=== PATIENT | male | born 1960 | race Caucasian/White ===

== ENCOUNTER 2024-05-21 12:07 | Inpatient (IN) | payer MEDICARE, OTHER ==
[2024-05-21] MEDS ORDERED: PNEUMONIA PROTOCOL UTILIZED 1 EACH MISC PO PRN (12:36)
--- NOTE | 2024-05-21 12:39 | ED ---
General Adult HPI - General Chief complaint: Upper Respiratory Infection Stated complaint: cough Time Seen by Provider: 05/21/24 12:12 Source: patient, EMS, RN notes reviewed Mode of arrival: EMS Limitations: no limitations - History of Present Illness Initial comments: Patient is a 63-year-old male present to the emergency department as a transfer from [place]. Patient was transferred secondary to influenza and new onset A-fib. Patient went to the emergency department with difficulty breathing. Patient does have known history of COPD with similar symptoms. Onset of symptoms was just yesterday. Patient was found to have influenza positive and new onset A-fib with RVR. Patient was given nebulizer, Solu-Medrol and Cardizem. Patient left AMA and returned and then was transferred here to evaluate and treat by cardiology. Patient states symptoms have not improved - Related Data Allergies Allergy/AdvReac Type Severity Reaction Status Date / Time No Known Allergies Allergy Verified 05/21/24 12:19 Review of Systems ROS Statement: Those systems with pertinent positive or pertinent negative responses have been documented in the HPI. ROS Other: All systems not noted in ROS Statement are negative. Constitutional: Denies: fever, chills Eyes: Denies: eye pain ENT: Denies: ear pain Respiratory: Reports: as per HPI, cough, dyspnea Cardiovascular: Denies: chest pain Endocrine: Reports: fatigue Musculoskeletal: Denies: back pain Past Medical History Past Medical History: COPD, Hypertension General Exam Limitations: no limitations General appearance: alert, in no apparent distress Head exam: Present: normocephalic Eye exam: Present: normal appearance Neck exam: Present: normal inspection Respiratory exam: Present: wheezes, rhonchi Cardiovascular Exam: Present: tachycardia, irregular rhythm GI/Abdominal exam: Present: soft. Absent: tenderness Extremities exam: Present: normal inspection. Absent: pedal edema, calf tenderness Neurological exam: Present: alert Psychiatric exam: Present: normal affect, normal mood Skin exam: Present: other (Tobacco stained fingers) Course Vital Signs 05/21/24 12:15 Temperature 97.8 F Pulse Rate 111 H Respiratory 22 Rate Blood Pressure 142/94 O2 Sat by Pulse 98 Oximetry EKG Findings - EKG Results: EKG: interpreted by ERMD (Nonspecific ST-T), normal axis, normal QRS EKG shows: atrial fibrillation (Rate of 101.) Medical Decision Making - Medical Decision Making Was pt. sent in by a medical professional or institution (SORIN Parker, [employer], urgent care, hospital, or jail...) When possible be specific @ -Patient was sent by [facility] Did you speak to anyone other than the patient for history (EMS, parent, family, police, friend...)? What history was obtained from this source @ -I did speak with transferring physician Did you review nursing and triage notes (agree or disagree)? Why? @ -I reviewed and agree with nursing and triage notes Were old charts reviewed (outside hosp., previous admission, EMS record, old EKG, old radiological studies, urgent care reports/EKG's, jail records)? Report findings @ -Chart from [place] was reviewed Differential Diagnosis (chest pain, altered mental status, abdominal pain women, abdominal pain men, vaginal bleeding, weakness, fever, dyspnea, syncope, hea dache, dizziness, GI bleed, back pain, seizure, CVA, palpatations, mental health, musculoskeletal)? @ -Differential Dyspnea: Coronary syndrome, arrhythmia, tamponade, asthma, COPD, pulmonary embolism, pneumonia, pneumothorax, pulmonary effusion, anaphylaxis, diabetic ketoacidosis, flailed chest, pulmonary contusion, diaphragmatic rupture, anemia, neuromuscular, this is not meant to be an all-inclusive list. EKG interpreted by me (3pts min.). @ -As above X-rays interpreted by me (1pt min.). @ -None done CT interpreted by me (1pt min.). @ -None done U/S interpreted by me (1pt. min.). @ -None done What testing was considered but not performed or refused? (CT, X-rays, U/S, labs)? Why? @ -Considered labs and x-rays however these were already done What meds were considered but not given or refused? Why? @ -None Did you discuss the management of the patient with other professionals (professionals i.e. SORIN Parker, [employer], lab, RT, psych nurse, high school social science teacher, undercover cop, teacher, bank compliance officer, case technician)? Give summary @ -Case discussed with Dr. Thomas who will admit covering hospital call Was smoking cessation discussed for >3mins.? @ -No Was critical care preformed (if so, how long)? @ -31 minutes critical care time Were there social determinants of health that impacted care today? How? (Homelessness, low income, unemployed, alcoholism, drug addiction, transportation, low edu. Level, literacy, decrease access to med. care, nursing home, rehab)? @ -No Was there de-escalation of care discussed even if they declined (Discuss DNR or withdrawal of care, Hospice)? DNR status @ -No What co-morbidities impacted this encounter? (DM, HTN, Smoking, COPD, CAD, Cancer, CVA, ARF, Chemo, Hep., AIDS, mental health diagnosis, sleep apnea, morbid obesity)? @ -History of COPD Was patient admitted / discharged? Hospital course, mention meds given and route, prescriptions, significant lab abnormalities, going to OR and other pertinent info. @ -Patient presents with transfer for new onset A-fib as well as COPD and influenza. Patient will be admitted. Admission orders written. Patient updated on results and plan. Consult will be placed with cardiology and pulmonary. Undiagnosed new problem with uncertain prognosis? @ -No Drug Therapy requiring intensive monitoring for toxicity (Heparin, Nitro, Insulin, Cardizem)? @ -Cardizem and heparin drips Were any procedures done? @ -No Diagnosis/symptom? @ -COPD, influenza, A-fib with RVR Acute, or Chronic, or Acute on Chronic? @ -Acute, acute, acute Uncomplicated (without systemic symptoms) or Complicated (systemic symptoms)? @ -Default Side effects of treatment? @ -No Exacerbation, Progression, or Severe Exacerbation? @ -Exacerbation of COPD Poses a threat to life or bodily function? How? (Chest pain, USA, MD, pneumonia, PE, COPD, DKA, ARF, appy, cholecystitis, CVA, Diverticulitis, Homicidal, Suicidal, threat to staff... and all critical care pts) @ -Threat to cardiac and pulmonary function Critical Care Time Critical Care Time: Yes Disposition Clinical Impression: Influenza, COPD (chronic obstructive pulmonary disease), Atrial fibrillation with RVR Disposition: ADMITTED IP TO THIS [facility] Condition: Serious Is patient prescribed a controlled substance at d/c from ED?: No Referrals: Nonstaff,Physician [Primary Care Provider] - 1-2 days Time of Disposition: 12:47
[2024-05-21] MEDS: HEPARIN SOD,PORK IN 0.45% NACL 25,000 UNIT in 0.45% NACL 1 250ML.BAG IV SCH (13:11)
[2024-05-21] MEDS: DILTIAZEM 125 MG in SODIUM CHLORIDE 0.9% 100 ML IV SCH (13:15)
[2024-05-21] MEDS: SODIUM CHLORIDE 0.9% 1,000 ML IV SCH (13:18)
[2024-05-21] MEDS: methylPREDNISolone SOD SUCCI 125 MG/2 ML VIAL IV SCH (13:18)
[2024-05-21] MEDS: AZITHROMYCIN 500 MG in SODIUM CHLORIDE 0.9% 250 ML IVPB STA (14:08)
[2024-05-21] MEDS: OSELTAMIVIR 75 MG CAP PO SCH (17:01)
[2024-05-21] MEDS: IPRATROPIUM-ALBUTEROL 3 ML NEB INHALATION SCH (19:50)
[2024-05-22] MEDS: IPRATROPIUM-ALBUTEROL 3 ML NEB INHALATION PRN (04:00)
[2024-05-22 05:33] LABS: INR 0.9 (<1.2); Prothrombin Time 10.1 sec (10.0-12.5)
[2024-05-22] MEDS: HEPARIN SODIUM 1,000 UN/ML (10ML VL) IV PRN (06:37)
[2024-05-22 06:47] LABS: Basophils % (A) 0 %; Eosinophils % (A) 0 %; HCT 46.2 % (39.0-53.0); Lymphocytes # (A) 0.4 k/uL (1.0-4.8); Lymphocytes % (A) 3 %; MCH 33.1 pg (25.0-35.0); MCHC 32.4 g/dL (31.0-37.0); Macrocytosis Slight; Mean Platelet Volume 7.9; Monocytes # (A) 0.4 k/uL (0-1.0); Monocytes % (A) 3 %; Neutrophils # (A) 10.6 k/uL (1.3-7.7); Neutrophils % (A) 92 %; Platelet Count 302 k/uL (150-450); RBC 4.53 m/uL (4.30-5.90); RDW 13.6 % (11.5-15.5); WBC 11.5 k/uL (3.8-10.6)
[2024-05-22 06:55] LABS: African American GFR (CKD) >90 (>60 ml/min/1.73 sqM); Anion Gap 11 mmol/L; Blood Urea Nitrogen 24 mg/dL (9-20); Calcium 9.5 mg/dL (8.4-10.2); Carbon Dioxide 22 mmol/L (22-30); Chloride 100 mmol/L (98-107); Glucose 183 mg/dL (74-99); Non-African American GFR(CKD) >90 (>60 ml/min/1.73 sqM); Potassium 4.6 mmol/L (3.5-5.1); Sodium 133 mmol/L (137-145)
--- NOTE | 2024-05-22 07:23 | XR ---
EXAMINATION TYPE: XR chest 1V portable DATE OF EXAM: 05/22/2024 5:15 AM COMPARISON: None CLINICAL INDICATION: Male, 63 years old with history of pneumonia; [facility] TECHNIQUE: XR chest 1V portable Frontal view of the chest. FINDINGS: Lungs/Pleura: There is no evidence of pleural effusion, focal consolidation, or pneumothorax. Pulmonary vascularity: Unremarkable. Heart/mediastinum: Cardiomediastinal silhouette is unremarkable. Musculoskeletal: No acute osseous pathology. IMPRESSION: No acute cardiopulmonary disease/process. [facility], , 05/22/2024 7:20 AM
[2024-05-22] MEDS ORDERED: BUDESONIDE 0.5 MG/2 ML NEBU INHALATION SCH (08:00)
[2024-05-22] MEDS: lisinopriL 20 MG TAB PO SCH (08:45)
[2024-05-22] MEDS: SYMBICORT 160-4.5 MCG INHALER INHALATION SCH (08:53)
[2024-05-22] MEDS: TIOTROPIUM 2.5 MCG INHALER INHALATION SCH (09:01)
[2024-05-22] MEDS: FLUTICASONE NASAL 50MCG/SPRAY 16GM BTL EA NOSTRIL SCH (09:47)
[2024-05-22] MEDS: METOPROLOL TARTRATE 50 MG TAB PO SCH (12:33)
[2024-05-22] MEDS: APIXABAN 5 MG TAB PO SCH (12:33)
[2024-05-22] MEDS: AZITHROMYCIN 500 MG TAB PO SCH (12:34)
[2024-05-22 12:44] LABS: Magnesium 2.1 mg/dL (1.6-2.3)
[2024-05-22 12:53] LABS: NT-Pro-B-Type Natriuretic Pept 1000 pg/mL
--- NOTE | 2024-05-22 12:53 | P.CNPUL ---
History of Present Illness Consult date: 05/22/24 Requesting physician: Margaret Prather Reason for consult: dyspnea, cough, COPD, hypoxemia, abnormal CXR/CT Chief complaint: Shortness of breath. History of present illness: Pulmonary consultation dated May 22, 2024. 63-year-old male who presented to the emergency department, on May 21, complaining of shortness of breath, cough, wheezing, chest tightness, and generally not feeling well. The patient apparently was discovered to have new onset atrial fibrillation, and also tested positive for influenza A. The patient came in from [facility]. The patient has never seen a diamond mounter, but does have an appointment with 1, on May 26. We believe is Dr. Weller, but [facility]. He is seen today in the emergency department, room 25. He is on room air. He is receiving IV heparin. The patient is also on Cardizem. He is getting saline at 75 cc an hour. White count 11.5, hemoglobin 15, hematocrit 46.2, and platelet count 302,000. Sodium 133, potassium 4.6, chlorides 100, CO2 22, BUN 24, creatinine 0.88. Glucose 183. Calcium 9.5. Last x-ray shows no changes of any significance. Review of Systems REVIEW OF SYSTEMS: CONSTITUTIONAL: [Negative.] NEUROLOGIC: [ Negative.] HEENT: [ Negative.] CARDIAC: Rapid heart rate. PULMONARY: Shortness of breath, cough, wheezing, chest tightness. GI: [Negative.] : [Negative.] RHEUMATOLOGIC: [ Negative.] IMMUNOLOGIC: [ Negative.] ENDOCRINE: [Negative. ] DERMATOLOGIC: [Negative.] Past Medical History Past Medical History: COPD, Hypertension Medications and Allergies Home Medications Medication Instructions Recorded Confirmed Type Albuterol Nebulized [Ventolin 2.5 mg INHALATION RT-Q6H 05/21/24 05/21/24 History Nebulized] Albuterol Sulfate [Ventolin HFA] 2 puff INHALATION RT-Q4H PRN 05/21/24 05/21/24 History Azithromycin [Zithromax Z Pack] See Taper PO DIRECTED 05/21/24 05/21/24 History Budesonide [Pulmicort] 0.5 mg INHALATION RT-Q12H 05/21/24 05/21/24 History Fluticasone Nasal [place] [Flonase 2 spr EA NOSTRIL DAILY 05/21/24 05/21/24 History Nasal [place]] Fluticasone Propion/Salmeterol 1 puff INHALATION RT-BID 05/21/24 05/21/24 History [Advair 500-50 Diskus] Fluticasone/Umeclidin/Vilanter 1 puff INHALATION RT-DAILY 05/21/24 05/21/24 His tory [Trelegy Ellipta 200-62.5-25] Ibuprofen [Motrin] 800 mg PO TID PRN 05/21/24 05/21/24 History guaiFENesin [Mucinex] 1,200 mg PO BID PRN 05/21/24 05/21/24 History lisinopriL 40 mg PO DAILY 05/21/24 05/21/24 History methylPREDNISolone [Medrol Dose See Taper PO DIRECTED 05/21/24 05/21/24 History Pack] Allergies Allergy/AdvReac Type Severity Reaction Status Date / Time No Known Allergies Allergy Verified 05/21/24 16:39 Physical Exam Osteopathic Statement: *. No significant issues noted on an osteopathic structural exam other than those noted in the History and Physical/Consult. Vitals: Vital Signs Temp Pulse Pulse Resp BP BP Pulse Ox 05/22/24 09:07 108 H 05/22/24 09:00 101 H 18 137/97 96 05/22/24 08:54 100 05/22/24 08:00 98 F 115 H 18 160/100 96 05/22/24 06:51 108 H 133/78 96 05/22/24 04:40 115 H 18 140/114 97 05/22/24 04:10 96 05/22/24 04:00 105 H 05/22/24 02:26 130 H 125/104 95 05/22/24 01:16 96 18 134/99 96 05/21/24 23:17 112 H 20 130/96 95 05/21/24 21:00 84 20 128/78 96 05/21/24 20:04 110 H 05/21/24 20:00 105 H 20 105/85 95 05/21/24 19:55 112 H 05/21/24 18:24 100 18 120/80 98 05/21/24 17:37 100 18 105/70 99 05/21/24 17:00 115 H 18 140/98 97 Intake and Output 05/21/24 05/22/24 05/22/24 22:59 06:59 14:59 Intake Total 20.833 278.667 Balance 20.833 278.667 Intake: Intake, IV Titration 20.833 278.667 Amount Diltiazem 125 mg In 20.833 104.167 Sodium Chloride 0.9% 100 ml @ 5 MG/HR 5 mls/hr IV .Q24H ROSALBA Rx#:[id number] Heparin Sod,Pork in 0.45% 174.5 NaCl 25,000 unit In 0.45 % NaCl 1 250ml.bag @ 9. 585 UNITS/KG/HR 10 mls/hr IV .Q24H ROSALBA Rx#: [id number] Other: # Voids 1 No acute distress, oriented 3. Currently on room air. HEENT examination is grossly unremarkable. Mucous membranes are moist. No oral lesions. Neck supple. Full range of motion. No adenopathy thyromegaly or neck vein distention. Cardiovascular examination reveals regular rhythm rate. S1-S2 normal. No S3 or S4. No discernible murmur noted. Lungs reveal bilateral diffuse inspiratory and expiratory wheezes and rhonchi. No crackles. Breath sounds equal bilaterally. Abdomen soft bowel sounds are heard. No masses or tenderness. Extremities are intact. No cyanosis clubbing or edema. Skin is without rash or lesion. Neurologic examination is brief but nonfocal. Results - Laboratory Findings CBC and BMP: 05/22/24 06:05 05/22/24 06:05 PT/INR, D-dimer PT 10.1 sec (10.0-12.5) 05/22/24 05:20 INR 0.9 (<1.2) 05/22/24 05:20 Abnormal lab findings: Abnormal Labs 05/22/24 05/22/24 06:05 06:05 WBC 11.5 H MCV 102.0 H Neutrophils # 10.6 H Lymphocytes # 0.4 L Sodium 133 L BUN 24 H Glucose 183 H - Diagnostic Findings Chest x-ray: image reviewed Assessment and Plan Assessment: Acute exacerbation of COPD, triggered by influenza A infection, without obvious pneumonia. New onset atrial fibrillation with RVR. History of hypertension. Previous history of heavy tobacco use. Plan: Plan dated May 22, 2024. The patient is seen today in the emergency department, room 25. He is currently on room air. He is receiving IV heparin, and Cardizem. The patient is scheduled to see Dr. Weller, [facility], in May 26. The patient was admitted with a diagnosis of COPD exacerbation, influenza A, and at ria fibrillation with RVR. The patient is on appropriate medications. We will continue to follow the patient, make recommendations along the way. Labs, x- rays, and medications are reviewed. 55 minutes was spent with this patient, which included obtaining the history, examining the patient, reviewing pertinent laboratory data, x-rays, medications, as well as discussing the diagnosis, treatment, prognosis with the patient, and the patient's nursing staff. We will continue to follow. Dictation was produced using [employer] dictation software. Please excuse any grammatical, word or spelling errors. Time with Patient: Greater than 30
--- NOTE | 2024-05-22 14:34 | P.CRDCN ---
History of Present Illness Consult date: 05/22/24 History of present illness: HISTORY OF PRESENTING ILLNESS: 63-year-old presented from [facility] to [facility]. On admission he was noticed to have atrial fibrillation which is a new diagnosis for the patient. On admission he had A-fib RVR and was tested positive for influenza. He presented to the hospital because of increased worsening shortness of breath difficulty breathing. He also has a history of COPD. Admission Vitals: 125/104, pulse 100, afebrile, Admission Labs: Labs are reviewed and essentially within normal limit. Admission EKG: Atrial fibrillation with RVR heart rate 113 bpm, mild LVH by voltage criteria Imaging: Mild increased interstitial markings with no signs of congestion or consolidation. REVIEW OF SYSTEMS: 14 point review of system is negative except what is mentioned above in HPI. PHYSICAL EXAMINATION: Neck: Brisk carotid upstroke, no jugular venous distention. Lungs: Clear to auscultation. Heart: Irregularly irregular pulse, Abdomen: Soft nontender, positive bowel sounds. Extremities: No edema, intact distal pulses. Neuro: Alert, oritented, no focal deficits. Detailed neuro exam was not performed. ASSESSMENT: # Atrial fibrillation with RVR, new onset # Influenza Pneumonia # COPD exacerbation # Ex tobacco smoker # Obesity # Suspect sleep apnea PLAN: Discontinue lisinopril for now. Start metoprolol tartrate 50 mg twice daily. Continue Cardizem drip. Discontinue if patient's heart rate is less than 100 or patient converts out of atrial fibrillation. Restart Cardizem drip at the same rate if heart rate is above 100 bpm. Obtain TSH, NT-proBNP, lipids, HbA1c, magnesium level. Obtain echocardiogram Discontinue IV heparin drip. Start Eliquis 5 mg twice daily outpatient PFT and Sleep study Vega Grady MD, FACC, RPVI Thank you for allowing [facility] to participate in t his patient's care. Feel free to reach out in case of any followup questions. Past Medical History Past Medical History: COPD, Hypertension Medications and Allergies Home Medications Medication Instructions Recorded Confirmed Type Albuterol Nebulized [Ventolin 2.5 mg INHALATION RT-Q6H 05/21/24 05/21/24 History Nebulized] Albuterol Sulfate [Ventolin HFA] 2 puff INHALATION RT-Q4H PRN 05/21/24 05/21/24 History Azithromycin [Zithromax Z Pack] See Taper PO DIRECTED 05/21/24 05/21/24 History Budesonide [Pulmicort] 0.5 mg INHALATION RT-Q12H 05/21/24 05/21/24 History Fluticasone Nasal [place] [Flonase 2 spr EA NOSTRIL DAILY 05/21/24 05/21/24 History Nasal [place]] Fluticasone Propion/Salmeterol 1 puff INHALATION RT-BID 05/21/24 05/21/24 History [Advair 500-50 Diskus] Fluticasone/Umeclidin/Vilanter 1 puff INHALATION RT-DAILY 05/21/24 05/21/24 History [Trelegy Ellipta 200-62.5-25] Ibuprofen [Motrin] 800 mg PO TID PRN 05/21/24 05/21/24 History guaiFENesin [Mucinex] 1,200 mg PO BID PRN 05/21/24 05/21/24 History lisinopriL 40 mg PO DAILY 05/21/24 05/21/24 History methylPREDNISolone [Medrol Dose See Taper PO DIRECTED 05/21/24 05/21/24 History Pack] Allergies Allergy/AdvReac Type Severity Reaction Status Date / Time No Known Allergies Allergy Verified 05/21/24 16:39 Physical Exam Vitals: Vital Signs Temp Pulse Pulse Resp BP BP Pulse Ox 05/22/24 09:07 108 H 05/22/24 09:00 101 H 18 137/97 96 05/22/24 08:54 100 05/22/24 08:00 98 F 115 H 18 160/100 96 05/22/24 06:51 108 H 133/78 96 05/22/24 04:40 115 H 18 140/114 97 05/22/24 04:10 96 05/22/24 04:00 105 H 05/22/24 02:26 130 H 125/104 95 05/22/24 01:16 96 18 134/99 96 05/21/24 23:17 112 H 20 130/96 95 05/21/24 21:00 84 20 128/78 96 05/21/24 20:04 110 H 05/21/24 20:00 105 H 20 105/85 95 05/21/24 19:55 112 H 05/21/24 18:24 100 18 120/80 98 05/21/24 17:37 100 18 105/70 99 05/21/24 17:00 115 H 18 140/98 97 05/21/24 12:15 97.8 F 111 H 22 142/94 98 Intake and Output 05/21/24 05/22/24 05/22/24 22:59 06:59 14:59 Intake Total 20.833 278.667 Balance 20.833 278.667 Intake: Intake, IV Titration 20.833 278.667 Amount Diltiazem 125 mg In 20.833 104.167 Sodium Chloride 0.9% 100 ml @ 5 MG/HR 5 mls/hr IV .Q24H ROSALBA Rx#:[id number] Heparin Sod,Pork in 0.45% 174.5 NaCl 25,000 unit In 0.45 % NaCl 1 250ml.bag @ 9. 585 UNITS/KG/HR 10 mls/hr IV .Q24H ROSALBA Rx#: [id number] Other: # Voids 1 Results 05/22/24 06:05 05/22/24 06:05 Coagulation 05/21/24 05/22/24 05/22/24 Range/Units 18:07 05:20 05:20 PT 10.1 (10.0-12.5) sec APTT 24.7 22.9 (22.0-30.0) sec CBC 05/22/24 Range/Units 06:05 WBC 11.5 H (3.8-10.6) k/uL RBC 4.53 (4.30-5.90) m/uL Hgb 15.0 (13.0-17.5) gm/dL Hct 46.2 (39.0-53.0) % Plt Count 302 (150-450) k/uL Comprehensive Metabolic Panel 05/22/24 Range/Units 06:05 Sodium 133 L (137-145) mmol/L Potassium 4.6 (3.5-5.1) mmol/L Chloride 100 (98-107) mmol/L Carbon Dioxide 22 (22-30) mmol/L BUN 24 H (9-20) mg/dL Creatinine 0.88 (0.66-1.25) mg/dL Glucose 183 H (74-99) mg/dL Calcium 9.5 (8.4-10.2) mg/dL Current Medications Generic Name Dose Route Start Last Admin Trade Name Freq PRN Reason Stop Dose Admin Albuterol/Ipratropium 3 ml 05/21/24 16:00 05/22/24 08:53 Ipratropium-Albuterol 3 Ml Neb INHALATION 3 ml RT-QID ROSALBA Administration Albuterol/Ipratropium 3 ml 05/21/24 12:36 05/22/24 04:00 Ipratropium-Albuterol 3 Ml Neb INHALATION 3 ml RT-Q4H PRN Administration shortness of breath Apixaban 5 mg 05/22/24 11:00 Apixaban 5 Mg Tab PO BID [facility] Protocol Azithromycin 500 mg 05/22/24 12:00 Azithromycin 500 Mg Tab PO 05/23/24 12:01 DAILY@1200 [facility] Protocol Budesonide/Formoterol Fumarate 2 puff 05/22/24 08:00 05/22/24 08:53 Symbicort 160-4.5 Mcg Inhaler INHALATION 2 puff RT-BID ROSALBA Administration Fluticasone Propionate 2 spray 05/22/24 09:00 05/22/24 09:47 Fluticasone Nasal 50mcg/Francisco 16gm Btl EA NOSTRIL 2 spray DAILY ROSALBA Administration Diltiazem HCl 125 mg/ Sodium 125 mls @ 5 mls/hr 05/21/24 13:00 05/22/24 04:10 Chloride IV 5 mg/hr .Q24H ROSALBA 5 mls/hr Administration 5 MG/HR Sodium Chloride 1,000 mls @ 75 mls/hr 05/21/24 12:45 05/22/24 09:48 Saline 0.9% IV 75 mls/hr .[id number] ROSALBA Administration Ceftriaxone Sodium 2 gm/ 50 mls @ 100 mls/hr 05/22/24 09:00 05/22/24 08:45 Sodium Chloride IVPB 05/25/24 09:29 100 mls/hr Q24HR ROSALBA Administration Protocol Methylprednisolone Sodium Succinate 60 mg 05/21/24 13:00 05/22/24 05:05 Methylprednisolone Sod Succi 125 Mg/2 Ml Vial IV 60 mg Q6HR [facility]ALBA Administration Metoprolol Tartrate 50 mg 05/22/24 11:00 Metoprolol Tartrate 50 Mg Tab PO BID [facility] Miscellaneous Information 1 each 05/21/24 12:36 Pneumonia Protocol Utilized 1 Each Misc PO ONCE PRN Per Protocol Oseltamivir Phosphate 75 mg 05/21/24 13:00 05/22/24 08:45 Oseltamivir 75 Mg Cap PO 05/25/24 21:01 75 mg Q12HR ROSALBA Administration Protocol Intake and Output 05/21/24 05/22/24 05/22/24 22:59 06:59 14:59 Intake Total 20.833 278.667 Balance 20.833 278.667 Intake: Intake, IV Titration 20.833 278.667 Amount Diltiazem 125 mg In 20.833 104.167 Sodium Chloride 0.9% 100 ml @ 5 MG/HR 5 mls/hr IV .Q24H ROSALBA Rx#:[id number] Heparin Sod,Pork in 0.45% 174.5 NaCl 25,000 unit In 0.45 % NaCl 1 250ml.bag @ 9. 585 UNITS/KG/HR 10 mls/hr IV .Q24H ROSALBA Rx#: [id number] Other: # Voids 1 05/22/24 06:05 05/22/24 06:05
[2024-05-22 14:59] LABS: T4, Free (Free Thyroxine) 1.33 ng/dL (0.78-2.19)
--- NOTE | 2024-05-22 16:33 | P.HPIM ---
History of Present Illness H&P Date: 05/21/24 Chief Complaint: Shortness of breath/upper respiratory infection 63-year-old male present to the emergency department as a transfer from [place]. Patient was transferred secondary to influenza and new onset A-fib. Patient went to the emergency department with difficulty breathing. Patient does have known history of COPD with similar symptoms. Onset of symptoms was just yesterday. Patient was found to have influenza positive and new onset A- fib with RVR. Patient was given nebulizer, Solu-Medrol and Cardizem. Patient left AMA and returned and then was transferred here to evaluate and treat by cardiology. Patient states symptoms have not improved In the ED patient was found to be in atrial fibrillation with RVR and was placed on IV Cardizem bolus and infusion with IV heparin White count 11.5, hemoglobin 15, hematocrit 46.2, and platelet count 302,000. Sodium 133, potassium 4.6, chlorides 100, CO2 22, BUN 24, creatinine 0.88. Glucose 183. Calcium 9.5. Last x-ray shows no changes of any significance. Admission EKG: Atrial fibrillation with RVR heart rate 113 bpm, mild LVH by voltage criteria Review of Systems REVIEW OF SYSTEMS: CONSTITUTIONAL: No fever, no malaise, no fatigue. HEENT: No recent visual problems or hearing problems. Denied any sore throat. CARDIOVASCULAR: No chest pain, orthopnea, PND, no palpitations, no syncope. PULMONARY: No shortness of breath, no cough, no hemoptysis. GASTROINTESTINAL: No diarrhea, no nausea, no vomiting, no abdominal pain. NEUROLOGICAL: No headaches, no weakness, no numbness. HEMATOLOGICAL: Denies any bleeding or petechiae. GENITOURINARY: Denies any burning micturition, frequency, or urgency. MUSCULOSKELETAL/RHEUMATOLOGICAL: Denies any joint pain, swelling, or any muscle pain. ENDOCRINE: Denies any polyuria or polydipsia. The rest of the 14-point review of systems is negative. Past Medical History Past Medical History: COPD, Hypertension Medications and Allergies Home Medications Medication Instructions Recorded Confirmed Type Albuterol Nebulized [Ventolin 2.5 mg INHALATION RT-Q6H 05/21/24 05/21/24 History Nebulized] Albuterol Sulfate [Ventolin HFA] 2 puff INHALATION RT-Q4H PRN 05/21/24 05/21/24 History Azithromycin [Zithromax Z Pack] See Taper PO DIRECTED 05/21/24 05/21/24 History Budesonide [Pulmicort] 0.5 mg INHALATION RT-Q12H 05/21/24 05/21/24 History Fluticasone Nasal [place] [Flonase 2 spr EA NOSTRIL DAILY 05/21/24 05/21/24 Histor y Nasal [place]] Fluticasone Propion/Salmeterol 1 puff INHALATION RT-BID 05/21/24 05/21/24 Hist ory [Advair 500-50 Diskus] Fluticasone/Umeclidin/Vilanter 1 puff INHALATION RT-DAILY 05/21/24 05/21/24 History [Trelegy Ellipta 200-62.5-25] Ibuprofen [Motrin] 800 mg PO TID PRN 05/21/24 05/21/24 History guaiFENesin [Mucinex] 1,200 mg PO BID PRN 05/21/24 05/21/24 History lisinopriL 40 mg PO DAILY 05/21/24 05/21/24 History methylPREDNISolone [Medrol Dose See Taper PO DIRECTED 05/21/24 05/21/24 History Pack] Allergies Allergy/AdvReac Type Severity Reaction Status Date / Time No Known Allergies Allergy Verified 05/21/24 16:39 Physical Exam Vitals: Vital Signs Temp Pulse Resp BP Pulse Ox 05/21/24 12:15 97.8 F 111 H 22 142/94 98 Intake and Output 05/21/24 05/21/24 05/21/24 06:59 14:59 22:59 Other: Weight 104.326 kg General appearance: alert, in no apparent distress Head exam: Present: normocephalic Eye exam: Present: normal appearance Neck exam: Present: normal inspection Respiratory exam: Present: wheezes, rhonchi Cardiovascular Exam: Present: tachycardia, irregular rhythm GI/Abdominal exam: Present: soft. Absent: tenderness Extremities exam: Present: normal inspection. Absent: pedal edema, calf tenderness Neurological exam: Present: alert Psychiatric exam: Present: normal affect, normal mood Skin exam: Present: other (Tobacco stained fingers) Results CBC & Chem 7: 05/22/24 06:05 05/22/24 06:05 Assessment and Plan Assessment: 1. New onset atrial fibrillation with RVR -Patient has been placed on IV Cardizem infusion and bolus; heart rate at this time is in 1 teens -Continue with IV heparin per protocol -Patient will be admitted to telemetry; monitor EKG and trend troponin -Recommend 2D echo; cardiology is consulted; appreciate recommendation 2. Acute exacerbation COPD -Patient received Solu-Medrol 125 mg IV x 1; has been placed on IV Solu-Medrol every 6 hours; DuoNeb nebulizer treatments 4 times daily and as needed -Patient remains on IV ceftriaxone and azithromycin -O2 per nasal cannula keeping O2 saturation greater than 90% -Pulmonary consult in place; appreciate recommendations 3. Influenza A infection; Tamiflu 75 mg every 12 hours; continue with supportive care 4. Possible pneumonia; patient has been placed on IV ceftriaxone 2 g daily; azithromycin 500 mg daily -Bronchodilator nebulizer treatments -O2 per nasal cannula keeping O2 saturation greater than 92% -Await further recommendations from pulmonary 5. History of hypertension; patient takes lisinopril 40 mg daily DVT prophylaxis; SCDs/IV heparin CODE STATUS; full code
--- NOTE | 2024-05-22 16:34 | P.PN ---
Subjective Progress Note Date: 05/22/24 63-year-old male present to the emergency department as a transfer from [place]. Patient was transferred secondary to influenza and new onset A-fib. Patient went to the emergency department with difficulty breathing. Patient does have known history of COPD with similar symptoms. Onset of symptoms was just yesterday. Patient was found to have influenza positive and new onset A- fib with RVR. Patient was given nebulizer, Solu-Medrol and Cardizem. Patient left AMA and returned and then was transferred here to evaluate and treat by cardiology. Patient states symptoms have not improved In the ED patient was found to be in atrial fibrillation with RVR and was placed on IV Cardizem bolus and infusion with IV heparin White count 11.5, hemoglobin 15, hematocrit 46.2, and platelet count 302,000. Sodium 133, potassium 4.6, chlorides 100, CO2 22, BUN 24, creatinine 0.88. Glucose 183. Calcium 9.5. Last x-ray shows no changes of any significance. Admission EKG: Atrial fibrillation with RVR heart rate 113 bpm, mild LVH by voltage criteria Objective - Vital Signs Vital signs: Vital Signs Temp 98 F 05/22/24 08:00 Pulse 108 H 05/22/24 09:07 Resp 18 05/22/24 09:00 BP 137/97 05/22/24 09:00 Pulse Ox 96 05/22/24 09:00 FiO2 Intake & Output 05/21/24 05/22/24 05/22/24 18:59 06:59 18:59 Intake Total 20.833 278.667 Balance 20.833 278.667 Weight 104.326 kg Intake: Intake, IV Titration 20.833 278.667 Amount Diltiazem 125 mg In 20.833 104.167 Sodium Chloride 0.9% 100 ml @ 5 MG/HR 5 mls/hr IV .Q24H [facility] Rx#:[id number] Heparin Sod,Pork in 0.45% 174.5 NaCl 25,000 unit In 0.45 % NaCl 1 250ml.bag @ 9. 585 UNITS/KG/HR 10 mls/hr IV .Q24H [facility]AL[facility] Rx#: [id number] Other: # Voids 1 - Exam Head exam: Present: normocephalic Eye exam: Present: normal appearance Neck exam: Present: normal inspection Respiratory exam: Present: wheezes, rhonchi Cardiovascular Exam: Present: tachycardia, irregular rhythm GI/Abdominal exam: Present: soft. Absent: tenderness Extremities exam: Present: normal inspection. Absent: pedal edema, calf tenderness Neurological exam: Present: alert Psychiatric exam: Present: normal affect, normal mood Skin exam: Present: other (Tobacco stained fingers) - Labs CBC & Chem 7: 05/22/24 06:05 05/22/24 06:05 Labs: Abnormal Lab Results - Last 24 Hours (Table) 05/22/24 05/22/24 Range/Units 06:05 06:05 WBC 11.5 H (3.8-10.6) k/uL MCV 102.0 H (80.0-100.0) fL Neutrophils # 10.6 H (1.3-7.7) k/uL Lymphocytes # 0.4 L (1.0-4.8) k/uL Sodium 133 L (137-145) mmol/L BUN 24 H (9-20) mg/dL Glucose 183 H (74-99) mg/dL Assessment and Plan Assessment: 1. New onset atrial fibrillation with RVR -Patient has been placed on IV Cardizem infusion and bolus; heart rate at this time is in 1 teens -Continue with IV heparin per protocol -Patient will be admitted to telemetry; monitor EKG and trend troponin -Recommend 2D echo; cardiology is consulted; appreciate recommendation 2. Acute exacerbation COPD -Patient received Solu-Medrol 125 mg IV x 1; has been placed on IV Solu-Medrol every 6 hours; DuoNeb nebulizer treatments 4 times daily and as needed -Patient remains on IV ceftriaxone and azithromycin -O2 per nasal cannula keeping O2 saturation greater than 90% -Pulmonary consult in place; appreciate recommendations 3. Influenza A infection; Tamiflu 75 mg every 12 hours; continue with supportive care 4. Possible pneumonia; patient has been placed on IV ceftriaxone 2 g daily; azithromycin 500 mg daily -Bronchodilator nebulizer treatments -O2 per nasal cannula keeping O2 saturation greater than 92% -Await further recommendations from pulmonary 5. History of hypertension; patient takes lisinopril 40 mg daily DVT prophylaxis; SCDs/IV heparin CODE STATUS; full code
[2024-05-22] MEDS: guaiFENesin 600 MG TABLET.ER PO SCH (18:29)
[2024-05-23 09:36] LABS: Chol/HDL Ratio 2.35 Ratio; LDL Cholesterol,Calculated 120.5 mg/dL (0.0-131.0); VLDL Calculation 15.46 mg/dL (5.00-40.00)
[2024-05-23 10:46] LABS: African American GFR (CKD) >90 (>60 ml/min/1.73 sqM); Anion Gap 11 mmol/L; Blood Urea Nitrogen 32 mg/dL (9-20); Carbon Dioxide 18 mmol/L (22-30); Chloride 103 mmol/L (98-107); Glucose 196 mg/dL (74-99); Non-African American GFR(CKD) 82 (>60 ml/min/1.73 sqM); Potassium 4.5 mmol/L (3.5-5.1); Sodium 132 mmol/L (137-145)
[2024-05-23 12:06] VITALS: BMI 33.3
--- NOTE | 2024-05-23 12:23 | CA ---
Transthoracic Echo Report Name: Ray Forte Age: 63 Gender: M : 1960 Exam Date: 05/23/2024 08:41 Exam Location: [facility] Ht (in): 72 Wt (lb): 230 Ordering Physician: Vega Grady MD ([id number]) Attending/Referring Phys: Movement Education Specialist Tamela Rock RDCS Procedure CPT: Indications: atrial fibrillation Cardiac Hx: Technical Quality: Fair Contrast 1: Total Dose (mL): Contrast 2: Total Dose (mL): MEASUREMENTS (Male / Female) Normal Values 2D ECHO LV Diastolic Diameter PLAX 4.4 cm 4.2 - 5.9 / 3.9 - 5.3 cm LV Systolic Diameter PLAX 3.9 cm IVS Diastolic Thickness 1.4 cm 0.6 - 1.0 / 0.6 - 0.9 cm LVPW Diastolic Thickness 1.3 cm 0.6 - 1.0 / 0.6 - 0.9 cm LV Relative Wall Thickness 0.6 RV Internal Dim ED PLAX 2.8 cm LA Systolic Diameter LX 4.9 cm 3.0 - 4.0 / 2.7 - 3.8 cm LV Diastolic Volume MOD BP 85.0 cm??? 67 - 155 / 56 - 104 cm??? LV Systolic Volume MOD BP 50.4 cm??? 22 - 58 / 19 - 49 cm??? LV Ejection Fraction MOD BP 40.7 % >= 55 % LV Cardiac Index MOD BP 1381.3 cm???/min???m??? LV Diastolic Volume MOD 4C 84.4 cm??? LV Systolic Volume MOD 4C 63.1 cm??? LV Ejection Fraction MOD 4C 25.3 % LV Cardiac Index MOD 4C 852.3 cm???/min???m??? LV Diastolic Length 4C 8.0 cm LV Systolic Length 4C 7.4 cm LV Diastolic Volume MOD 2C 83.1 cm??? LV Systolic Volume MOD 2C 44.7 cm??? LV Ejection Fraction MOD 2C 46.1 % LV Cardiac Index MOD 2C 1530.8 cm???/min???m??? LV Diastolic Length 2C 8.3 cm LV Systolic Length 2C 7.3 cm M-MODE Aortic Root Diameter MM 3.5 cm LA Systolic Diameter MM 4.1 cm LA Ao Ratio MM 1.2 AV Cusp Separation MM 2.1 cm DOPPLER Mitral E Point Velocity 102.3 cm/s Mitral A Point Velocity 0.9 cm/s Mitral E to A Ratio 116.1 MV Deceleration Time 292.7 ms MV E' Velocity 10.4 cm/s Mitral E to MV E' Ratio 9.9 TR Peak Velocity 199.6 cm/s TR Peak Gradient 15.9 mmHg Right Ventricular Systolic Press 26.3 mmHg FINDINGS Left Ventricle Left ventricular ejection fraction is estimated at 40%. Moderately increased septal wall thickness. Moderately decreased left ventricular ejection fraction. Left ventricular cavity size normal. Right Ventricle Normal right ventricular size and function. Right ventricular systolic pressure within normal limits. Right Atrium Mild right atrial dilatation. Left Atrium Moderately increased left atrial diameter. Mitral Valve Structurally normal mitral valve. Mild to moderate MR Aortic Valve Trileaflet aortic valve. No aortic valve stenosis or regurgitation. Tricuspid Valve Structurally normal tricuspid valve. Mild tricuspid regurgitation. No tricuspid stenosis. Pulmonic Valve Structurally normal pulmonic valve. Trace pulmonic regurgitation. No pulmonic stenosis. Pericardium No pericardial or pleural effusion. Aorta Normal size aortic root and proximal ascending aorta. CONCLUSIONS Technically difficult study for interpretation Impaired LV function with EF at 40% by Conte Mild to moderate MR Previewed by: Dr. Antonio López MD (Electronically Signed) Final Date: 23 May 2024 12:22
--- NOTE | 2024-05-23 13:53 | P.PN ---
Subjective HISTORY OF PRESENT ILLNESS: 63-year-old presented from [facility] to [facility]. On admission he was noticed to have atrial fibrillation which is a new diagnosis for the patient. On admission he had A-fib RVR and was tested positive for influenza. He presented to the hospital because of increased worsening shortness of breath difficulty breathing. He also has a history of COPD. Admission Vitals: 125/104, pulse 100, afebrile, Admission Labs: Labs are reviewed and essentially within normal limit. Admission EKG: Atrial fibrillation with RVR heart rate 113 bpm, mild LVH by voltage criteria Imaging: Mild increased interstitial markings with no signs of congestion or consolidation. 05/23/2024 Patient examined this morning at the bedside. Patient currently denies chest pain or pressure. He reports improvement in his shortness of breath. Telemetry reveals atrial fibrillation with a heart rate in the 90s. Echocardiogram completed revealing ejection fraction 40% with mild to moderate MR. PHYSICAL EXAM: VITAL SIGNS: Reviewed. GENERAL: Well-developed in no acute distress. NECK: Supple. No JVD or thyromegaly LUNGS: Respirations even and unlabored. Lungs with mild wheezing bilaterally HEART: Irregular rate and rhythm. S1 and S2 heard. EXTREMITIES: Normal range of motion. No clubbing or cyanosis. Peripheral pulses intact. No lower extremity edema ASSESSMENT: Acute influenza Acute COPD exacerbation New onset atrial fibrillation with RVR, currently rate controlled Cardiomyopathy, 40%, ischemic versus nonischemic Former nicotine dependence Obesity: BMI 33.3 Hyperlipidemia, cholesterol 237 and LDL 120 PLAN: Continue oral anticoagulation with Eliquis Continue current dose of metoprolol tartrate 50 mg twice a day Continue telemetry monitoring Begin atorvastatin 20 mg at night Recommend eventual ischemic/cardiomyopathy workup. May be performed on an outpatient basis when patient's acute issues have resolved. Further recommendations pending patient course Nurse practitioner note has been reviewed by physician. Signing provider agrees with the documented findings, assessment, and plan of care documented by GENERAL OFFICE CLERK as a scribe. Objective - Vital Signs Vital signs: Vital Signs Temp 98.1 F 05/23/24 12:00 Pulse 88 05/23/24 12:50 Resp 18 05/23/24 12:50 BP 127/71 05/23/24 12:00 Pulse Ox 96 05/23/24 12:00 FiO2 21 05/23/24 07:44 Intake & Output 02/05/23/24 05/23/24 18:59 06:59 18:59 Intake Total 240 480 Balance 240 480 Weight 111.5 kg 111.5 kg Intake: Oral 240 480 Other: Voiding Method Toilet # Voids 1 2 - Labs CBC & Chem 7: 05/22/24 06:05 05/23/24 10:05 Labs: Abnormal Lab Results - Last 24 Hours (Table) 05/22/24 05/22/24 05/23/24 Range/Units 06:05 12:16 10:05 Sodium 132 L (137-145) mmol/L Carbon Dioxide 18 L (22-30) mmol/L BUN 32 H (9-20) mg/dL Glucose 196 H (74-99) mg/dL Hemoglobin A1c 7.3 H (<=6.0) % Cholesterol 237.00 H (0.00-200.00) mg/dL HDL Cholesterol 101.00 H (40.00-60.00) mg/dL TSH 0.192 L (0.465-4.680) mIU/L Microbiology - Last 24 Hours (Table) 05/22/24 01:20 Gram Stain - Preliminary Sputum Sputum Culture - Preliminary 05/21/24 12:59 Blood Culture - Preliminary Blood
--- NOTE | 2024-05-23 18:28 | P.PN ---
Subjective Progress Note Date: 05/23/24 Patient is evaluated today in follow up on the medical floor. He has been taken off the cardizem gtt and started on metoprolol. Continues in atrial fibrillation now rate controlled. Patient has been transitioned to eliquis 5 mg twice daily. Not having any complaints of chest pain at this time. Having some shortness of breath and not back to baseline yet. Echocardiogram reveals an EF of 40% with mild to Mod MR. Patient with no reported history of cardiomypathy and cardiology following pending further recommendations. Patient continues on course of oral tamiflu, IV solumedrol 60 mg Q6h. Sodium level 132. Review of Systems Constitutional: Denied any fatigue denied any fever. Cardio vascular: denied any chest pain, palpitations Gastrointestinal: denied any nausea, vomiting, diarrhea Pulmonary: Denied any shortness of breath cough Neurologic denied any new focal deficits All inpatient medications were reviewed and appropriate changes in these medications as dictated in the interval history and assessment and plan. PHYSICAL EXAMINATION: GENERAL: The patient is alert and oriented x3, not in any acute distress. Well developed, well nourished. HEENT: Pupils are round and equally reacting to light. EOMI. No scleral icterus. No conjunctival pallor. Normocephalic, atraumatic. No pharyngeal erythema. No thyromegaly. CARDIOVASCULAR: S1 and S2 present. No murmurs, rubs, or gallops. PULMONARY: Coarse scattered ronchi ABDOMEN: Soft, nontender, nondistended, normoactive bowel sounds. No palpable organomegaly. MUSCULOSKELETAL: No joint swelling or deformity. EXTREMITIES: No cyanosis, clubbing, or pedal edema. NEUROLOGICAL: Gross neurological examination did not reveal any focal deficits. SKIN: No rashes. 1. New onset atrial fibrillation with RVR -Patient has been placed on IV Cardizem infusion and bolus; heart rate is now controlled and patient has been transitioned to oral metoprolol. -Patient has been transitioned off IV heparin and currently on oral eliquis 5 mg twice daily. -Patient will be admitted to telemetry; monitor EKG and trend troponin -Echocardiogram with EF 40% mild to moderate MR and pending further recommendations from cardiology. 2. Acute exacerbation COPD -Patient received Solu-Medrol 125 mg IV x 1; has been placed on IV Solu-Medrol every 6 hours; DuoNeb nebulizer treatments 4 times daily and as needed -Patient remains on IV ceftriaxone and azithromycin -O2 per nasal cannula keeping O2 saturation greater than 90% -Pulmonary consult in place; appreciate recommendations 3. Influenza A infection; Tamiflu 75 mg every 12 hours; continue with s upportive care 4. Possible pneumonia; patient has been placed on IV ceftriaxone 2 g daily; azithromycin 500 mg daily -Bronchodilator nebulizer treatments -O2 per nasal cannula keeping O2 saturation greater than 92% -Await further recommendations from pulmonary 5. History of hypertension; patient takes lisinopril 40 mg daily 6. Hyponatremia worsening with IV fluids, does not appear to be volume overloaded. Will stop the normal saline at this time and recommend to repeat a BMP in the morning. DVT prophylaxis; SCDs/IV heparin CODE STATUS; full code The impression and plan of care has been dictated by Corrie Abdullahi, Nurse Practitioner as directed. Dr. Leti MD I have performed a history and physical examination and medical decision making of this patient, discussed the same with the dictator, and agree with the dictators assessment and plan as written, documented as a scribe. Based on total visit time, I have performed more than 50% of this visit. Objective - Vital Signs Vital signs: Vital Signs Temp 98.2 F 05/23/24 03:17 Pulse 116 H 05/23/24 08:00 Resp 16 05/23/24 03:17 BP 99/65 05/23/24 03:17 Pulse Ox 97 05/23/24 07:44 FiO2 21 05/23/24 07:44 Intake & Output 05/22/24 05/23/24 05/23/24 18:59 06:59 18:59 Intake Total 240 240 Balance 240 240 Weight 111.5 kg Intake: Oral 240 240 Other: Voiding Method Toilet # Voids 1 2 - Labs CBC & Chem 7: 05/22/24 06:05 05/23/24 10:05 Labs: Abnormal Lab Results - Last 24 Hours (Table) 05/22/24 05/22/24 Range/Units 06:05 12:16 Hemoglobin A1c 7.3 H (<=6.0) % TSH 0.192 L (0.465-4.680) mIU/L Microbiology - Last 24 Hours (Table) 05/21/24 12:59 Blood Culture - Preliminary Blood 05/22/24 01:20 Gram Stain - Preliminary Sputum Assessment and Plan Time with Patient: Less than 30
--- NOTE | 2024-05-23 19:38 | P.PN ---
Subjective Progress Note Date: 05/23/24 On 05/23/2024, patient is being seen for a follow-up. This is a 63-year-old male patient was hospitalized for an acute COPD exacerbation and influenza A infection. The patient was also found to be in atrial fibrillation the patient remains in atrial fibrillation with a controlled rate. The patient otherwise is feeling better. Less bronchospastic and wheezy compared to yesterday. Remains on Symbicort and DuoNeb nebulized treatments [id number] regarding his COPD and the patient is on IV Solu-Medrol 60 mg every 6 hours. The patient is completing a course of Tamiflu 75 mg p.o. twice a day. In terms of atrial fibrillation, the patient on metoprolol 50 mg p.o. twice a day. The patient was also started on anticoagulation with Eliquis 5 mg p.o. twice a day. Echocardiogram was done today and it showed a mild impairment of the LV function with an ejection fraction of 40%. The patient also has a mild to moderate mitral regurgitation. No significant pulmonary hypertension. Blood work from today shows a BUN of 32 with a creatinine of 0.99 and sodium levels at 132. LDL cholesterol is at 120. Legionella urine antigen has been negative. Chest x-ray from 05/22/2024 showed no acute cardiopulmonary process. In terms of his oxygenation, the patient is currently on room air oxygen with a pulse ox of 96%. Objective - Vital Signs Vital signs: Vital Signs Temp 98.1 F 05/23/24 12:00 Pulse 88 05/23/24 12:50 Resp 18 05/23/24 12:50 BP 127/71 05/23/24 12:00 Pulse Ox 96 05/23/24 12:00 FiO2 21 05/23/24 07:44 Intake & Output 05/22/24 05/23/24 05/23/24 18:59 06:59 18:59 Intake Total 240 480 Balance 240 480 Weight 111.5 kg 111.5 kg Intake: Oral 240 480 Other: Voiding Method Toilet # Voids 1 2 - Exam No acute distress, oriented 3. Currently on room air. HEENT examination is grossly unremarkable. Mucous membranes are moist. No oral lesions. Neck supple. Full range of motion. No adenopathy thyromegaly or neck vein distention. Cardiovascular examination reveals irregular rhythm consistent with atrial fibr illation. S1-S2 normal. No S3 or S4. No discernible murmur noted. Lungs reveal bilateral diffuse inspiratory and expiratory wheezes and rhonchi. No crackles. Breath sounds equal bilaterally. Abdomen soft bowel sounds are heard. No masses or tenderness. Extremities are intact. No cyanosis clubbing or edema. Skin is without rash or lesion. Neurologic examination is brief but nonfocal. - Labs CBC & Chem 7: 05/22/24 06:05 05/23/24 10:05 Labs: Abnormal Lab Results - Last 24 Hours (Table) 05/22/24 05/22/24 05/23/24 Range/Units 06:05 12:16 10:05 Sodium 132 L (137-145) mmol/L Carbon Dioxide 18 L (22-30) mmol/L BUN 32 H (9-20) mg/dL Glucose 196 H (74-99) mg/dL Hemoglobin A1c 7.3 H (<=6.0) % Cholesterol 237.00 H (0.00-200.00) mg/dL HDL Cholesterol 101.00 H (40.00-60.00) mg/dL TSH 0.192 L (0.465-4.680) mIU/L Microbiology - Last 24 Hours (Table) 05/22/24 01:20 Gram Stain - Preliminary Sputum Sputum Culture - Preliminary 05/21/24 12:59 Blood Culture - Preliminary Blood Assessment and Plan Plan: Acute exacerbation of COPD, triggered by influenza A infection, without obvious pneumonia. Acute influenza A infection, nonvaccinated, currently on Tamiflu New onset atrial fibrillation with RVR, rate is better controlled and the patient is currently on metoprolol and anticoagulation with Eliquis History of hypertension. Previous history of heavy tobacco use. Obesity with a BMI of 33 Plan: Continue DuoNeb nebulized treatments [id number] Continue Symbicort IV Solu-Medrol 60 mg for 6 hours and the patient can be transition to prednisone burst taper as of tomorrow Continue metoprolol 50 mg p.o. twice a day Anticoagulation with Eliquis The patient is on room air oxygen Smoking cessation counseling Continue the course of Tamiflu and complete a 5-day course Will continue to follow.
[2024-05-23] MEDS: ATORVASTATIN 20 MG TAB PO SCH (19:59)
[2024-05-24 07:33] LABS: African American GFR (CKD) >90 (>60 ml/min/1.73 sqM); Anion Gap 5 mmol/L; Blood Urea Nitrogen 28 mg/dL (9-20); Calcium 8.5 mg/dL (8.4-10.2); Carbon Dioxide 24 mmol/L (22-30); Chloride 103 mmol/L (98-107); Glucose 221 mg/dL (74-99); Non-African American GFR(CKD) 88 (>60 ml/min/1.73 sqM); Potassium 4.6 mmol/L (3.5-5.1); Sodium 132 mmol/L (137-145)
[2024-05-24 07:43] VITALS: RESP 17
[2024-05-24 12:47] VITALS: BP 142/75; PULSE 77; TEMP 97.7
--- NOTE | 2024-05-24 18:25 | P.PN ---
Subjective HISTORY OF PRESENT ILLNESS: 63-year-old presented from [facility] to [facility]. On admission he was noticed to have atrial fibrillation which is a new diagnosis for the patient. On admission he had A-fib RVR and was tested positive for influenza. He presented to the hospital because of increased worsening shortness of breath difficulty breathing. He also has a history of COPD. Admission Vitals: 125/104, pulse 100, afebrile, Admission Labs: Labs are reviewed and essentially within normal limit. Admission EKG: Atrial fibrillation with RVR heart rate 113 bpm, mild LVH by voltage criteria Imaging: Mild increased interstitial markings with no signs of congestion or consolidation. 05/23/2024 Patient examined this morning at the bedside. Patient currently denies chest pain or pressure. He reports improvement in his shortness of breath. Telemetry reveals atrial fibrillation with a heart rate in the 90s. Echocardiogram completed revealing ejection fraction 40% with mild to moderate MR. 05/24/2024 Patient examined at the bedside. Patient currently denies chest pain or pressure. He reports continued improvement in his shortness of breath and currently denies any dyspnea at the time of examination. Telemetry reveals atrial fibrillation with a heart rate in the 90s. Blood pressure is stable. Patient is anticipating discharge home today. PHYSICAL EXAM: VITAL SIGNS: Reviewed. GENERAL: Well-developed in no acute distress. NECK: Supple. No JVD or thyromegaly LUNGS: Respirations even and unlabored. Lungs with mild wheezing bilaterally HEART: Irregular rate and rhythm. S1 and S2 heard. EXTREMITIES: Normal range of motion. No clubbing or cyanosis. Peripheral pulses intact. No lower extremity edema ASSESSMENT: Acute influenza Acute COPD exacerbation New onset atrial fibrillation with RVR, currently rate controlled Cardiomyopathy, 40%, ischemic versus nonischemic Former nicotine dependence Obesity: BMI 33.3 Hyperlipidemia, cholesterol 237 and LDL 120 PLAN: Continue oral anticoagulation with Eliquis Continue additional cardiac medications Recommend eventual ischemic/cardiomyopathy workup. May be performed on an outpatient basis when patient's acute issues have resolved. Patient is stable for discharge home today from a cardiac standpoint Nurse practitioner note has been reviewed by physician. Signing provider agrees with the documented findings, assessment, and plan of care documented by [employer] as a scribe. Objective - Vital Signs Vital signs: Vital Signs Temp 97.7 F 05/24/24 12:00 Pulse 77 05/24/24 14:00 Resp 17 05/24/24 14:00 BP 142/75 05/24/24 12:00 Pulse Ox 96 05/24/24 12:00 FiO2 21 05/23/24 07:44 Intake & Output 05/23/24 05/24/24 05/24/24 18:59 06:59 18:59 Intake Total 702 420 Balance 702 420 Weight 111.5 kg 112 kg Intake: Oral 702 420 Other: Voiding Method Toilet # Voids 1 1 - Labs CBC & Chem 7: 05/22/24 06:05 05/24/24 06:16 Labs: Abnormal Lab Results - Last 24 Hours (Table) 05/24/24 Range/Units 06:16 Sodium 132 L (137-145) mmol/L BUN 28 H (9-20) mg/dL Glucose 221 H (74-99) mg/dL Microbiology - Last 24 Hours (Table) 05/22/24 01:20 Gram Stain - Final Sputum Sputum Culture - Final 05/21/24 12:59 Blood Culture - Preliminary Blood
--- NOTE | 2024-05-24 18:44 | P.PN ---
Subjective Progress Note Date: 05/24/24 On 05/23/2024, patient is being seen for a follow-up. This is a 63-year-old male patient was hospitalized for an acute COPD exacerbation and influenza A infection. The patient was also found to be in atrial fibrillation the patient remains in atrial fibrillation with a controlled rate. The patient otherwise is feeling better. Less bronchospastic and wheezy compared to yesterday. Remains on Symbicort and DuoNeb nebulized treatments [id number] regarding his COPD and the patient is on IV Solu-Medrol 60 mg every 6 hours. The patient is completing a course of Tamiflu 75 mg p.o. twice a day. In terms of atrial fibrillation, the patient on metoprolol 50 mg p.o. twice a day. The patient was also started on anticoagulation with Eliquis 5 mg p.o. twice a day. Echocardiogram was done today and it showed a mild impairment of the LV function with an ejection fraction of 40%. The patient also has a mild to moderate mitral regurgitation. No significant pulmonary hypertension. Blood work from today shows a BUN of 32 with a creatinine of 0.99 and sodium levels at 132. LDL cholesterol is at 120. Legionella urine antigen has been negative. Chest x-ray from 05/22/2024 showed no acute cardiopulmonary process. In terms of his oxygenation, the patient is currently on room air oxygen with a pulse ox of 96%. On 05/24/2024, the patient is being seen for a follow-up. Patient remains in atr ial fibrillation. No significant respiratory difficulties. No cough sputum production chest tightness or wheezing and the patient is currently on room air oxygen. Blood pressure is stable. His A-fib is under adequate control. He remains on anticoagulation with Eliquis. As mentioned earlier, the patient's echocardiogram on 05/23/2024 also showed mild impaired LV function with an ejection fraction of 40%. This needs to be further worked up on outpatient basis. BUN is 28 with a creatinine of 0.9. Sodium levels at 132. The patient has been maintained on Trelegy Ellipta on outpatient basis and this will be continued in addition to completing a course of Tamiflu. Anticoagulation with Eliquis. Maintained on metoprolol 50 mg p.o. twice a day with adequate rate control. Objective - Vital Signs Vital signs: Vital Signs Temp 97.7 F 05/24/24 12:00 Pulse 77 05/24/24 12:00 Resp 17 05/24/24 12:00 BP 142/75 05/24/24 12:00 Pulse Ox 96 05/24/24 12:00 FiO2 21 05/23/24 07:44 Intake & Output 05/23/24 05/24/24 05/24/24 18:59 06:59 18:59 Intake Total 702 420 Balance 702 420 Weight 111.5 kg 112 kg Intake: Oral 702 420 Other: Voiding Method Toilet # Voids 1 1 - Exam No acute distress, oriented 3. Currently on room air. HEENT examination is grossly unremarkable. Mucous membranes are moist. No oral lesions. Neck supple. Full range of motion. No adenopathy thyromegaly or neck vein distention. Cardiovascular examination reveals irregular rhythm consistent with atrial fibrillation. S1-S2 normal. No S3 or S4. No discernible murmur noted. Lungs reveal bilateral diffuse inspiratory and expiratory wheezes and rhonchi. No crackles. Breath sounds equal bilaterally. Abdomen soft bowel sounds are heard. No masses or tenderness. Extremities are intact. No cyanosis clubbing or edema. Skin is without rash or lesion. Neurologic examination is brief but nonfocal. - Labs CBC & Chem 7: 05/22/24 06:05 05/24/24 06:16 Labs: Abnormal Lab Results - Last 24 Hours (Table) 05/24/24 Range/Units 06:16 Sodium 132 L (137-145) mmol/L BUN 28 H (9-20) mg/dL Glucose 221 H (74-99) mg/dL Microbiology - Last 24 Hours (Table) 05/22/24 01:20 Gram Stain - Final Sputum Sputum Culture - Final 05/21/24 12:59 Blood Culture - Preliminary Blood Assessment and Plan Plan: Acute exacerbation of COPD, triggered by influenza A infection, without obvious pneumonia. Clinically improved Acute influenza A infection, nonvaccinated, currently on Tamiflu New onset atrial fibrillation with RVR, rate is better controlled and the patient is currently on metoprolol and anticoagulation with Eliquis, rate is controlled and the patient remains in atrial fibrillation History of hypertension. Previous history of heavy tobacco use. Obesity with a BMI of 33 Plan: The patient to be discharged home today on Trelegy Ellipta 1 puff a day and DuoNeb updrafts [id number] and a prednisone burst taper Continue metoprolol 50 mg p.o. twice a day Anticoagulation with Eliquis The patient is on room air oxygen Smoking cessation counseling Continue the course of Tamiflu and complete a 5-day course The patient will be established by Dr. SELAM Weller as his executive director on outpatient basis.
--- NOTE | 2024-05-26 12:28 | CDI ---
Documentation Clarification Form Date: 05/26/2024 12:08:30 PM From: Irena Mendoza Admit Date: 05/21/2024 12:36:00 PM Patient Name: Ray Forte Visit Number: [id number] Discharge Date: 05/24/2024 04:03:00 PM ATTENTION: The Clinical Documentation Specialists (CDI) and [facility] Coding Staff appreciate your assistance in clarifying documentation. Please respond to the clarification below the line at the bottom and electronically sign. The CDI & [facility] Coding staff will review the response and follow-up if needed. Please note: Queries are made part of the Legal Health Record. If you have any questions, please contact the author of this message via ITS. Doctor/Provider: Margaret Prather Conflicting documentation has been found in the medical record. As attending physician, please provide clarification. Possible pneumonia is documented in your history and physical 05/21/24 Influenza pneumonia is documented in the consult note 05/22/24 Acute exacerbation of COPD triggered by influenza A infection without obvious pneumonia is documented in Progress note and Consult note 05/22/24. History/Risk Factors: patient is a 63 year old male who has a history of COPD and Hypertension Clinical Indicators: patient presented to [facility]. Was transferred to [place] due to influenza A infection and new onset of A-fib. Patient was having difficulty breathing. WBC: 11.5, sodium 133, BUN 24, procalcitonin- 0.15 Chest x-ray- no acute cardiopulmonary process Treatment: patient was given nebulizers, solu-medrol and Cardizem. Left [facility], returned and transferred here. Was found to be in AFIB, started on IV Cardizem bolus and infusion with IV heparin. Stated on Tamiflu and placed on IV ceftriazone 2 g daily, and azithromycin 500 mg daily for possible pneumonia. Please clarify which diagnosis is most appropriate: [@@@ ] Pneumonia is suspected/confirmed [ ] Pneumonia is ruled out [ ] Other (please specify) [ ] Unable to determine MTDD
--- NOTE | 2024-05-28 11:47 | P.DS ---
Providers Date of admission: 05/21/24 12:36 Expected date of discharge: 05/24/24 Attending physician: Margaret Prather MD Consults: 05/21/24 12:36 Consult Physician Routine Consulting Provider: Vega Grady Consult Reason/Comments: a fib Do you want consulting provider notified?: Yes 05/21/24 12:37 Consult Physician Routine Consulting Provider: Brad Grant Consult Reason/Comments: copd, flu Do you want consulting provider notified?: Yes Primary care physician: Physician Nonstaff Hospital Course: Final diagnosis 1. New onset atrial fibrillation with RVR 2. Acute exacerbation COPD 3. Influenza A infection; continue Tamiflu 4. Possible pneumonia, present on admission, ruled out, procalcitonin 0.12 5. History of hypertension 6. Hyponatremia DVT prophylaxis GI prophylaxis Full code Discharge disposition Patient is being discharged in a stable condition with guarded prognosis to home. Patient will follow-up with his primary care provider SORIN Schmidt, .patient to follow-up with pulmonary outpatient and continue on prednisone taper, Eliquis, Tamiflu to complete the course. Patient also should follow-up with cardiology outpatient. TOtal time taken is greater than 35 minutes. Hospital course This is a 63-year-old male who was recently admitted from [place] with shortness of breath also noted to be new onset A-fib with RVR. Patient with acute exacerbation of COPD as well as positive for influenza A. Patient maintained on breathing treatments along with IV steroids and Tamiflu being followed by pulmonary. Patient will continue a prednisone taper along with breathing treatments. Patient also to follow-up with cardiology outpatient has been started on Eliquis and will continue current medication regimen. Please refer to other consultation notes for further HPI. Currently no reports of chest pain, shortness of breath, or palpitations. Patient is afebrile. No reports of nausea or vomiting and patient is tolerating diet. Patient will be discharged home today. Physical exam: Gen: This is a 63-year-old male who is awake, alert and oriented x 3, well- developed, obese HEENT: Head is atraumatic, normocephalic. Pupils equal, round. Sclerae is anicteric. NECK: Supple. No JVD. No lymphadenopathy. No thyromegaly. LUNGS: Diminished breath sounds bilaterally with some faint expiratory wheezes and coarse scattered rhonchi. No intercostal retractions. HEART: S1, S2 are muffled ABDOMEN: Soft. Obese, protuberant bowel sounds are present. No masses. No tenderness. EXTREMITIES: No pedal edema. No calf tenderness. NEUROLOGICAL: Patient is awake, alert and oriented x3. Cranial nerves 2 through 12 are grossly intact. Please refer to medication reconciliation sheet for a list of medications. The impression and plan of care has been dictated by Kasandra Patterson, Nurse Practitioner as directed. Dr. Leti MD I have performed a history and examination and MDM of this patient, discussed the same with the dictator, and agree with the dictator's assessment and plan as written ,documented as a scribe. Based on total visit time, I have performed more than 50% of the visit. Patient Condition at Discharge: Fair Plan - Discharge Summary Discharge Rx Participant: No New Discharge Prescriptions: New Ipratropium-Albuterol Nebulize [Duoneb 0.5 mg-3 mg/3 ml Soln] 3 ml INHALATION RT-QID #100 each Ipratropium-Albuterol Nebulize [Duoneb 0.5 mg-3 mg/3 ml Soln] 3 ml INHALATION RT-Q4H PRN each PRN Reason: shortness of breath Apixaban [Eliquis] 5 mg PO BID #60 tab Atorvastatin [Lipitor] 20 mg PO HS #30 tab Oseltamivir [Tamiflu] 75 mg PO Q12HR 2 Days #4 cap Metoprolol Tartrate [Lopressor] 50 mg PO BID #60 tab predniSONE See Taper PO DIRECTED #30 tab Continue Albuterol Sulfate [Ventolin HFA] 2 puff INHALATION RT-Q4H PRN PRN Reason: Shortness Of Breath guaiFENesin [Mucinex] 1,200 mg PO BID PRN PRN Reason: Congestion Ibuprofen [Motrin] 800 mg PO TID PRN PRN Reason: Pain Fluticasone Nasal [place] [Flonase Nasal [place]] 2 spr EA NOSTRIL DAILY Budesonide [Pulmicort] 0.5 mg INHALATION RT-Q12H Fluticasone Propion/Salmeterol [Advair 500-50 Diskus] 1 puff INHALATION RT- BID Fluticasone/Umeclidin/Vilanter [Trelegy Ellipta 200-62.5-25] 1 puff INHALATION RT-DAILY Albuterol Nebulized [Ventolin Nebulized] 2.5 mg INHALATION RT-Q6H Discontinued lisinopriL 40 mg PO DAILY methylPREDNISolone [Medrol Dose Pack] See Taper PO DIRECTED Azithromycin [Zithromax Z Pack] See Taper PO DIRECTED Discharge Medication List Albuterol Nebulized [Ventolin Nebulized] 2.5 mg INHALATION RT-Q6H 05/21/24 [History] Albuterol Sulfate [Ventolin HFA] 2 puff INHALATION RT-Q4H PRN 05/21/24 [History] Budesonide [Pulmicort] 0.5 mg INHALATION RT-Q12H 05/21/24 [History] Fluticasone Nasal [place] [Flonase Nasal [place]] 2 spr EA NOSTRIL DAILY 05/21/24 [History] Fluticasone Propion/Salmeterol [Advair 500-50 Diskus] 1 puff INHALATION RT-BID 05/21/24 [History] Fluticasone/Umeclidin/Vilanter [Trelegy Ellipta 200-62.5-25] 1 puff INHALATION RT-DAILY 05/21/24 [History] Ibuprofen [Motrin] 800 mg PO TID PRN 05/21/24 [History] guaiFENesin [Mucinex] 1,200 mg PO BID PRN 05/21/24 [History] Apixaban [Eliquis] 5 mg PO BID #60 tab 05/24/24 [Rx] Atorvastatin [Lipitor] 20 mg PO HS #30 tab 05/24/24 [Rx] Ipratropium-Albuterol Nebulize [Duoneb 0.5 mg-3 mg/3 ml Soln] 3 ml INHALATION RT-Q4H PRN each 05/24/24 [Rx] Ipratropium-Albuterol Nebulize [Duoneb 0.5 mg-3 mg/3 ml Soln] 3 ml INHALATION RT-QID #100 each 05/24/24 [Rx] Metoprolol Tartrate [Lopressor] 50 mg PO BID #60 tab 05/24/24 [Rx] Oseltamivir [Tamiflu] 75 mg PO Q12HR 2 Days #4 cap 05/24/24 [Rx] predniSONE See Taper PO DIRECTED #30 tab 02/18/25 [Rx] Follow up Appointment(s)/Referral(s): Deyvi Cooley DO [STAFF PHYSICIAN] - 1 Week Nonstaff,Physician [Primary Care Provider] - 1-2 days Teetee Perez MD [STAFF PHYSICIAN] - 1 Week Activity/Diet/Wound Care/Special Instructions: Patient is asking for transport back to [place]. Does not have a means to get home Activity limited until follow-up Follow-up with primary care provider on discharge Continue taking medications as prescribed Follow-up with pulmonary outpatient Follow-up with cardiology outpatient Discharge Disposition: HOME SELF-CARE
== END 2024-05-24 16:03 | disposition home or self-care (01) | DRG 308 ==
LOC: EC 12:07 → 3SCARD 12:36
PROVIDERS: ADMIT Internal Medicine; ATTEND Internal Medicine
DX: I48.91 Unspecified atrial fibrillation (principal); J10.00 Influenza due to other identified influenza virus with unspecified type of pneumonia; J44.0 Chronic obstructive pulmonary disease with (acute) lower respiratory infection; E87.1 Hypo-osmolality and hyponatremia; I10 Essential (primary) hypertension; E66.9 Obesity, unspecified; I34.0 Nonrheumatic mitral (valve) insufficiency; J44.1 Chronic obstructive pulmonary disease with (acute) exacerbation; I42.9 Cardiomyopathy, unspecified; G47.30 Sleep apnea, unspecified; Z68.33 Body mass index [BMI] 33.0-33.9, adult; E78.5 Hyperlipidemia, unspecified; R09.02 Hypoxemia; Z79.899 Other long term (current) drug therapy; Z87.891 Personal history of nicotine dependence
CPT/HCPCS: 36415; 71045; 80048; 80061; 83036; 83605; 83735; 83880; 84145; 84439; 84443; 85025; 85610; 85730; 87040; 87070; 87205; 87449; 93005; 93306; 94640; 94760; 96361; 96365; 96366; 96367; 96368; 96375; 96376; 99291

== ENCOUNTER 2024-06-11 02:33 | Inpatient (IN) | payer MEDICARE, OTHER ==
[2024-06-11] MEDS: DILTIAZEM DRIP BOLUS FROM BAG 1 MG SOLN IV ONE (03:56)
[2024-06-11] MEDS: DILTIAZEM 125 MG in SODIUM CHLORIDE 0.9% 100 ML IV SCH (03:57)
[2024-06-11 04:20] LABS: Basophils # (A) 0.1 k/uL (0-0.2); Basophils % (A) 0 %; Eosinophils # (A) 0.2 k/uL (0-0.7); Eosinophils % (A) 1 %; HCT 41.4 % (39.0-53.0); HGB 13.5 gm/dL (13.0-17.5); Lymphocytes # (A) 2.2 k/uL (1.0-4.8); Lymphocytes % (A) 14 %; MCH 32.6 pg (25.0-35.0); MCHC 32.5 g/dL (31.0-37.0); MCV 100.3 fL (80.0-100.0); Monocytes # (A) 0.9 k/uL (0-1.0); Monocytes % (A) 5 %; Neutrophils # (A) 12.7 k/uL (1.3-7.7); Neutrophils % (A) 78 %; Platelet Count 278 k/uL (150-450); RBC 4.13 m/uL (4.30-5.90); RDW 13.2 % (11.5-15.5); WBC 16.3 k/uL (3.8-10.6)
[2024-06-11 04:21] LABS: Prothrombin Time 10.9 sec (10.0-12.5)
--- NOTE | 2024-06-11 04:21 | ED ---
Arrhythmia/Palpitations HPI - General Chief Complaint: Arrhythmia/Palpitations Stated Complaint: Afib Time Seen by Provider: 06/11/24 03:20 Source: patient, EMS, RN notes reviewed, old records reviewed Mode of arrival: EMS Limitations: no limitations - History of Present Illness Initial Comments: Patient is a 63-year-old male presented to the ER via EMS transferred from [facility] for evaluation of atrial fibrillation with RVR. Patient was recently admitted here on found to be in new onset atrial fibrillation. Patient currently is taking Eliquis and metoprolol. He has not followed up with cardiology outpatient at this time. For the past 3 days patient has been having progressively worsening shortness of breath especially with exertion. Patient does not typically wear oxygen at home. He also reports a tight chest sensation with prompted emergency department visit at [facility]. He has been using at home COPD medications without relief. Patient repeatedly states he believes he has blockages in his heart and needs to have a cardiac catheterization. He denies any fevers, chills, nausea, vomiting, abdominal pain, dizziness, lightheadedness, palpitations or peripheral edema. No other complaints. - Related Data Home Medications Medication Instructions Recorded Confirmed Albuterol Nebulized [Ventolin 2.5 mg INHALATION RT-Q6H 05/21/24 05/21/24 Nebulized] Albuterol Sulfate [Ventolin HFA] 2 puff INHALATION RT-Q4H PRN 05/21/24 05/21/24 Budesonide [Pulmicort] 0.5 mg INHALATION RT-Q12H 05/21/24 05/21/24 Fluticasone Nasal [place] [Flonase 2 spr EA NOSTRIL DAILY 05/21/24 05/21/24 Nasal [place]] Fluticasone Propion/Salmeterol 1 puff INHALATION RT-BID 05/21/24 05/21/24 [Advair 500-50 Diskus] Fluticasone/Umeclidin/Vilanter 1 puff INHALATION RT-DAILY 05/21/24 05/21/24 [Trelegy Ellipta 200-62.5-25] Ibuprofen [Motrin] 800 mg PO TID PRN 05/21/24 05/21/24 guaiFENesin [Mucinex] 1,200 mg PO BID PRN 05/21/24 05/21/24 Previous Rx's Medication Instructions Recorded Apixaban [Eliquis] 5 mg PO BID #60 tab 05/24/24 Atorvastatin [Lipitor] 20 mg PO HS #30 tab 05/24/24 Ipratropium-Albuterol Nebulize 3 ml INHALATION RT-Q4H PRN each 05/24/24 [Duoneb 0.5 mg-3 mg/3 ml Soln] Ipratropium-Albuterol Nebulize 3 ml INHALATION RT-QID #100 each 05/24/24 [Duoneb 0.5 mg-3 mg/3 ml Soln] Metoprolol Tartrate [Lopressor] 50 mg PO BID #60 tab 05/24/24 Oseltamivir [Tamiflu] 75 mg PO Q12HR 2 Days #4 cap 05/24/24 predniSONE See Taper PO DIRECTED #30 tab 05/24/24 Allergies Allergy/AdvReac Type Severity Reaction Status Date / Time No Known Allergies Allergy Verified 06/11/24 02:42 Review of Systems ROS Statement: Those systems with pertinent positive or pertinent negative responses have been documented in the HPI. ROS Other: All systems not noted in ROS Statement are negative. Past Medical History Past Medical History: COPD, Hypertension History of Any Multi-Drug Resistant Organisms: None Reported Past Surgical History: No Surgical Hx Reported Past Anesthesia/Blood Transfusion Reactions: No Reported Reaction Past Psychological History: No Psychological Hx Reported Smoking Status: Former smoker Past Alcohol Use History: None Reported Past Drug Use History: None Reported General Exam Limitations: no limitations General appearance: alert, in no apparent distress Respiratory exam: Present: normal lung sounds bilaterally. Absent: respiratory distress, wheezes, rales, rhonchi, stridor Cardiovascular Exam: Present: tachycardia, irregular rhythm, normal heart sounds Extremities exam: Present: normal inspection, full ROM, normal capillary refill. Absent: tenderness, pedal edema, joint swelling, calf tenderness Neurological exam: Present: alert, oriented X3, CN II-XII intact Skin exam: Present: warm, dry, intact, normal color. Absent: rash Course Vital Signs 06/11/24 06/11/24 02:36 03:49 Temperature 99.6 F Pulse Rate 126 H 126 H Respiratory 20 18 Rate Blood Pressure 151/117 106/77 O2 Sat by Pulse 95 94 L Oximetry EKG Findings - EKG Comments: EKG Findings:: EKG taken at 03: 07 showing atrial fibrillation with RVR. Ventricular rate 125, QRS duration 97, QT/QTc 313/387. Medical Decision Making - Medical Decision Making Was pt. sent in by a medical professional or institution ([facility], [employer], urgent care, hospital, or snf...) When possible be specific @ -No Did you speak to anyone other than the patient for history (EMS, parent, family, police, friend...)? What history was obtained from this source @ -No Did you review nursing and triage notes (agree or disagree)? Why? @ -I reviewed and agree with nursing and triage notes Were old charts reviewed (outside hosp., previous admission, EMS record, old EKG, old radiological studies, urgent care reports/EKG's, snf records)? Report findings @ -Yes I reviewed admission notes and discharge summary from admission on 05 21 24. I also reviewed [facility] charts. WBC 17.1, hemoglobin 13.5, BUN 14, creatinine 1.16 GFR 71. Troponin negative. TSH 1.12 CXR with no focal consolidations. Subtle groundglass interstitial markings at bilateral lower lobes possibly representing minimal vascular congestion. Flu COVID RSV negative. At [facility] patient was given Lopressor 5 mg, Lasix 20 mg, labetalol 20 mg patient was also given Cardizem drip without a bolus. Cardizem was then stopped and patient was placed on amiodarone prior to transfer. Differential Diagnosis (chest pain, altered mental status, abdominal pain women, abdominal pain men, vaginal bleeding, weakness, fever, dyspnea, syncope, headache, dizziness, GI bleed, back pain, seizure, CVA, palpatations, mental health, musculoskeletal)? @ -Differential Dyspnea: Coronary syndrome, arrhythmia, tamponade, asthma, COPD, pulmonary embolism, pneumonia, pneumothorax, pulmonary effusion, anaphylaxis, diabetic ketoacidosis, flailed chest, pulmonary contusion, diaphragmatic rupture, anemia, neuromuscular, this is not meant to be an all- inclusive list. EKG interpreted by me (3pts min.). @ -As above X-rays interpreted by me (1pt min.). @ -None done CT interpreted by me (1pt min.). @ -None done U/S interpreted by me (1pt. min.). @ -None done What testing was considered but not performed or refused? (CT, X-rays, U/S, lab s)? Why? @ -None What meds were considered but not given or refused? Why? @ -Heparin considered but not performed as patiently is currently taking Eliquis. Negative troponin. Did you discuss the management of the patient with other professionals (professionals i.e. DrDain, PA, [employer], lab, RT, psych nurse, psychotherapist social worker, pie topper, teacher, purchasing officer, case mgr)? Give summary @ -Yes, case discussed with Dr. Lauren Ventura, for admission Was smoking cessation discussed for >3mins.? @ -No Was critical care preformed (if so, how long)? @ -Yes, 31 minutes Were there social determinants of health that impacted care today? How? (Homelessness, low income, unemployed, alcoholism, drug addiction, transportation, low edu. Level, literacy, decrease access to med. care, assisted, rehab)? @ -No Was there de-escalation of care discussed even if they declined (Discuss DNR or withdrawal of care, Hospice)? DNR status @ -No What co-morbidities impacted this encounter? (DM, HTN, Smoking, COPD, CAD, C ancer, CVA, ARF, Chemo, Hep., AIDS, mental health diagnosis, sleep apnea, morbid obesity)? @ -COPD, atrial fibrillation, Hypertension Was patient admitted / discharged? Hospital course, mention meds given and route, prescriptions, significant lab abnormalities, going to OR and other pertinent info. @ -Admitted. 63-year-old male presented to the ER via EMS from [facility] for evaluation of atrial fibrillation with RVR. Upon arrival, patient examined in room 15. Upon chart review extensive workup was obtained at [facility]. Troponin undetectable. Patient was given numerous medications and ultimately started on amiodarone prior to transfer. Patient given IV Lasix prior to transfer as chest x-ray concerning of pulmonary vascular congestion. Upon arrival patient is tachycardic at 126bpm with a blood pressure of 151/117. Vitals otherwise within acceptable limits. Repeat troponin ordered and pending at time of admission. Amiodarone stopped and patient started on Cardizem as patient remained tachycardic and hypertensive. Patient given 5 mg Cardizem bolus along with Cardizem drip. Repeat troponin and BMP pending. Admission considered and discussed with sound, Dr. Aguilar, for cardiology consultation. Patient agreeable. Patient main stable condition. Case discussed with ED attending, Dr. Grissom. Undiagnosed new problem with uncertain prognosis? @ -No Drug Therapy requiring intensive monitoring for toxicity (Heparin, Nitro, Insulin, Cardizem)? @ -Yes, Cardizem Were any procedures done? @ -No Diagnosis/symptom? @ -Atrial fibrillation with RVR Acute, or Chronic, or Acute on Chronic? @ -Acute Uncomplicated (without systemic symptoms) or Complicated (systemic symptoms)? @ -Complicated Side effects of treatment? @ -No Exacerbation, Progression, or Severe Exacerbation? @ -No Poses a threat to life or bodily function? How? (Chest pain, USA, PR, pneumonia, PE, COPD, DKA, ARF, appy, cholecystitis, CVA, Diverticulitis, Homicidal, Suicidal, threat to staff... and all critical care pts) @ -Possibly - Lab Data Result diagrams: 06/11/24 03:45 06/11/24 03:45 Lab Results 06/11/24 06/11/24 06/11/24 Range/Units 03:45 03:45 03:45 WBC 16.3 H (3.8-10.6) k/uL RBC 4.13 L (4.30-5.90) m/uL Hgb 13.5 (13.0-17.5) gm/dL Hct 41.4 (39.0-53.0) % MCV 100.3 H (80.0-100.0) fL MCH 32.6 (25.0-35.0) pg MCHC 32.5 (31.0-37.0) g/dL RDW 13.2 (11.5-15.5) % Plt Count 278 (150-450) k/uL MPV 8.0 Neutrophils % 78 % Lymphocytes % 14 % Monocytes % 5 % Eosinophils % 1 % Basophils % 0 % Neutrophils # 12.7 H (1.3-7.7) k/uL Lymphocytes # 2.2 (1.0-4.8) k/uL Monocytes # 0.9 (0-1.0) k/uL Eosinophils # 0.2 (0-0.7) k/uL Basophils # 0.1 (0-0.2) k/uL Sodium 134 L (137-145) mmol/L Potassium 3.9 (3.5-5.1) mmol/L Chloride 103 (98-107) mmol/L Carbon Dioxide 25 (22-30) mmol/L Anion Gap 6 mmol/L BUN 13 (9-20) mg/dL Creatinine 0.89 (0.66-1.25) mg/dL Est GFR (CKD-EPI)AfAm >90 (>60 ml/min/1.73 sqM) Est GFR (CKD-EPI)NonAf >90 (>60 ml/min/1.73 sqM) Glucose 140 H (74-99) mg/dL Calcium 8.8 (8.4-10.2) mg/dL Total Bilirubin 0.7 (0.2-1.3) mg/dL AST 61 H (17-59) U/L ALT 141 H (4-49) U/L Alkaline Phosphatase 88 (38-126) U/L Troponin I 0.027 (0.000-0.034) ng/mL Total Protein 6.0 L (6.3-8.2) g/dL Albumin 3.5 (3.5-5.0) g/dL Disposition Clinical Impression: Atrial fibrillation with RVR Disposition: ADMITTED IP TO THIS HOSP Condition: Stable Referrals: Nonstaff,Physician [Primary Care Provider] - 1-2 days Time of Disposition: 04:41
[2024-06-11 04:26] LABS: ALT 141 U/L (4-49); AST 61 U/L (17-59); African American GFR (CKD) >90 (>60 ml/min/1.73 sqM); Albumin 3.5 g/dL (3.5-5.0); Alkaline Phosphatase 88 U/L (38-126); Anion Gap 6 mmol/L; Blood Urea Nitrogen 13 mg/dL (9-20); Calcium 8.8 mg/dL (8.4-10.2); Carbon Dioxide 25 mmol/L (22-30); Chloride 103 mmol/L (98-107); Glucose 140 mg/dL (74-99); Non-African American GFR(CKD) >90 (>60 ml/min/1.73 sqM); Potassium 3.9 mmol/L (3.5-5.1); Sodium 134 mmol/L (137-145); Total Bilirubin 0.7 mg/dL (0.2-1.3)
[2024-06-11] MEDS ORDERED: NALOXONE 0.4 MG/ML 1 ML VIAL IV PRN (04:36)
[2024-06-11 04:48] LABS: Partial Thromboplastin Time 21.5 sec (22.0-30.0)
[2024-06-11] MEDS ORDERED: IPRATROPIUM-ALBUTEROL 3 ML NEB INHALATION PRN ×2 (06:23→08:37)
--- NOTE | 2024-06-11 06:36 | P.HPIM ---
History of Present Illness H&P Date: 06/11/24 63-year-old male with new onset atrial fibrillation coming into the hospital with transfer from a different facility where he presented with shortness of breath of few days duration and palpitations he also reports some chest congestion. Denies any fevers chills nausea vomiting denies any trouble b reathing at rest denies any recent travel denies any history of blood clots. However he was recently admitted to the hospital around end of May where he was diagnosed with new onset A-fib he was discharged on metoprolol and Eliquis of which he has been taking he claims to be compliant with them however he is concerned regarding coronary artery disease and hoping that he can see a beamer operator At the other facility he was started on amiodarone and was sent to our facility for cardiology evaluation in our ER he was transitioned to Cardizem drip and admitted for further care Patient denies tobacco smoking illicit drugs or heavy alcohol review of systems Pertinent positives as noted in HPI. All other systems were reviewed and are negative on exam Constitutional: No acute distress, conversant, pleasant Eyes: Anicteric sclerae, moist conjunctiva, Pupils equal round reactive to light ENMT: NC/AT Oropharynx clear, no erythema, or exudates Neck: Supple, no masses, or JVD No carotid bruits No thyromegaly Lungs: Clear to auscultation Clear to percussion Normal respiratory effort, no accessory muscle use Cardiovascular: Heart irregular in rate and rhythm, No murmurs, gallops, or rubs No peripheral edema Abdominal: Soft Nontender, no guarding, rebound or rigidity Abdomen moving with respiration Normoactive bowel sounds Extremities: No digital cyanosis No clubbing Pedal pulses intact and symmetrical Radial pulses intact and symmetrical No calf tenderness Psychiatric: Alert and oriented to person, place and time Appropriate affect fair judgement Neuro Muscles Strength 5/5 in all 4 extremities Sensation to light touch grossly present throughout Cranial nerves II-XII grossly intact Past Medical History Past Medical History: COPD, Hypertension History of Any Multi-Drug Resistant Organisms: None Reported Past Surgical History: No Surgical Hx Reported Past Anesthesia/Blood Transfusion Reactions: No Reported Reaction Past Psychological History: No Psychological Hx Reported Smoking Status: Former smoker Past Alcohol Use History: None Reported Past Drug Use History: None Reported Medications and Allergies Home Medications Medication Instructions Recorded Confirmed Type Albuterol Nebulized [Ventolin 2.5 mg INHALATION RT-Q6H 05/21/24 05/21/24 History Nebulized] Albuterol Sulfate [Ventolin HFA] 2 puff INHALATION RT-Q4H PRN 05/21/24 05/21/24 History Budesonide [Pulmicort] 0.5 mg INHALATION RT-Q12H 05/21/24 05/21/24 History Fluticasone Nasal [place] [Flonase 2 spr EA NOSTRIL DAILY 05/21/24 05/21/24 H istory Nasal [place]] Fluticasone Propion/Salmeterol 1 puff INHALATION RT-BID 05/21/24 05/21/24 History [Advair 500-50 Diskus] Fluticasone/Umeclidin/Vilanter 1 puff INHALATION RT-DAILY 05/21/24 05/21/24 History [Trelegy Ellipta 200-62.5-25] Ibuprofen [Motrin] 800 mg PO TID PRN 05/21/24 05/21/24 History guaiFENesin [Mucinex] 1,200 mg PO BID PRN 05/21/24 05/21/24 History Apixaban [Eliquis] 5 mg PO BID #60 tab 05/24/24 Rx Atorvastatin [Lipitor] 20 mg PO HS #30 tab 05/24/24 Rx Ipratropium-Albuterol Nebulize 3 ml INHALATION RT-Q4H PRN each 05/24/24 Rx [Duoneb 0.5 mg-3 mg/3 ml Soln] Ipratropium-Albuterol Nebulize 3 ml INHALATION RT-QID #100 each 05/24/24 Rx [Duoneb 0.5 mg-3 mg/3 ml Soln] Metoprolol Tartrate [Lopressor] 50 mg PO BID #60 tab 05/24/24 Rx Oseltamivir [Tamiflu] 75 mg PO Q12HR 2 Days #4 cap 05/24/24 Rx predniSONE See Taper PO DIRECTED #30 tab 05/24/24 Rx Allergies Allergy/AdvReac Type Severity Reaction Status Date / Time No Known Allergies Allergy Verified 06/11/24 02:42 Physical Exam Vitals: Vital Signs Temp Pulse Resp BP Pulse Ox 06/11/24 04:38 115 H 20 119/83 94 L 06/11/24 03:49 126 H 18 106/77 94 L 06/11/24 02:36 99.6 F 126 H 20 151/117 95 Intake and Output 06/10/24 06/10/24 06/11/24 14:59 22:59 06:59 Other: Weight 106.594 kg Results CBC & Chem 7: 06/11/24 03:45 06/11/24 03:45 Labs: Abnormal Lab Results - Last 24 Hours (Table) 06/11/24 06/11/24 06/11/24 Range/Units 03:45 03:45 03:45 WBC 16.3 H (3.8-10.6) k/uL RBC 4.13 L (4.30-5.90) m/uL MCV 100.3 H (80.0-100.0) fL Neutrophils # 12.7 H (1.3-7.7) k/uL APTT 21.5 L (22.0-30.0) sec Sodium 134 L (137-145) mmol/L Glucose 140 H (74-99) mg/dL AST 61 H (17-59) U/L ALT 141 H (4-49) U/L Total Protein 6.0 L (6.3-8.2) g/dL Assessment and Plan Assessment: 63-year-old male with atrial fibrillation, hypertension and COPD not on home oxygen coming in for shortness of breath and chest tightness I discussed case with ED doctor and accepted the admission for A-fib with RVR with anticipated length of stay more than 2 midnights A-fib with RVR Newly diagnosed with A-fib 2 weeks ago on Eliquis and metoprolol Continue with Cardizem drip Resume Eliquis 5 mg p.o. twice daily Resume metoprolol 50 mg p.o. twice daily Cardiology consult Blood work showing white count 16.3 no identifiable focus of infection at this time Hemoglobin 13.5 unremarkable Renal function unremarkable sodium 134 potassium 3.9 BUN 13 creatinine 0.89 Troponins negative Continue with cardiac monitoring COPD compensated Not on home oxygen Supplemental oxygen as needed to nasal cannula DuoNebs scheduled and as needed for shortness of breath Continue home inhalers Hypertension Continue with metoprolol twice daily Full code DVT prophylaxis on Eliquis for A-fib
[2024-06-11] MEDS: SYMBICORT 160-4.5 MCG INHALER INHALATION SCH (08:33)
[2024-06-11] MEDS: IPRATROPIUM-ALBUTEROL 3 ML NEB INHALATION SCH (08:33)
[2024-06-11] MEDS: APIXABAN 5 MG TAB PO SCH (08:53)
[2024-06-11] MEDS: FLUTICASONE NASAL 50MCG/SPRAY 16GM BTL EA NOSTRIL SCH (08:53)
[2024-06-11] MEDS: METOPROLOL TARTRATE 50 MG TAB PO SCH (08:53)
[2024-06-11] MEDS: FUROSEMIDE 10 MG/ML 4 ML VIAL IV STA (13:32)
[2024-06-11] MEDS: METOPROLOL TARTRATE 25 MG TAB PO STA (14:09)
[2024-06-11] MEDS: DAPAGLIFLOZIN PROPANEDIOL 10 MG TABLET PO SCH (14:09)
[2024-06-11] MEDS: MAGNESIUM SULFATE-D5W PMX 1 GM in DEXTROSE/WATER 1 100ML.BAG IVPB SCH ×2 (14:09→18:18)
--- NOTE | 2024-06-11 14:12 | P.CRDCN ---
History of Present Illness Consult date: 06/11/24 History of present illness: HISTORY OF PRESENTING ILLNESS: 63-year-old male was referred from [facility] to [facility]. May 21, 2024 he was admitted to [facility] because of new onset atrial fibrillation with RVR and influenza infection. He also has prior history of COPD. At that time he had associated dyspnea on exertion shortness of breath and chest pressure. He was offered rate control strategy and was optimized from a COPD standpoint and was discharged home with recommended outpatient follow-up for rhythm control and ischemic evaluation. His echocardiogram on last admission showed an EF of 40 to 45% with mild mitral regurgitation and mild to moderate left atrial dilatation. This time patient presents to the hospital because of concerns of substernal chest pressure increased shortness of breath and atrial fibrillation with RVR. He was transferred from [facility] to [facility] because patient is interested in getting a heart catheterization procedure to rule out obstruction as etiology of his substernal chest pressure. Admission Vitals: 121/76, heart rate 103 bpm Admission Labs: TSH 0.19 which is low, T4 is normal at 1.3, LDL 120, NT-proBNP 4000, HbA1c 7.3, Hb 13, BUN and creatinine are normal with potassium of 3.9 and magnesium of 2.1. Admission EKG: EKG shows atrial fibrillation with RVR with heart rate of 125 beats minute on admission. There were no significant ST-T wave changes at that heart rate. REVIEW OF SYSTEMS: 14 point review of system is negative except what is mentioned above in HPI. PHYSICAL EXAMINATION: Neck: Brisk carotid upstroke, no jugular venous distention. Lungs: Mild crackles and wheezing. Heart: Irregularly irregular, S1-S2, , no murmur or rub. Abdomen: Soft nontender, positive bowel sounds. Extremities: No edema, intact distal pulses. Neuro: Alert, oritented, no focal deficits. Detailed neuro exam was not performed. ASSESSMENT: # Atrial fibrillation with RVR # Cardiomyopathy, likely tachycardia induced. LVEF of 40 to 45% # Dyspnea on exertion and substernal chest pressure # Ex-tobacco smoker # Obesity # Suspect sleep apnea # COPD PLAN: Trend trops, if not elevated, consider outpatient heart catheterization. If tropes elevated, consider inpatient heart catheterization before cardioversion. If patient continues to have substernal chest pressure, and shortness of breath consider JUAN cardioversion on Thursday. Increase metoprolol to 75 mg twice daily. Continue Eliquis 5 mg twice daily Farxiga 10 mg daily, losartan 12.5 mg daily, Lipitor 40 mg Magnesium 2 g followed by 3 g 150 mg of amiodarone bolus. Start amiodarone 400 mg twice daily thereafter for 7 days. Amiodarone taper thereafter Patient appears to be noncompliant as he did not follow-up follow-up on outpatient basis with cardiology after his recent hospitalization. He would eventually need an ischemic evaluation Vega Grady MD, FACC, RPVI Thank you for allowing [facility] to participate in this patient's care. Feel free to reach out in case of any followup questions. Past Medical History Past Medical History: Atrial Fibrillation, COPD, Hypertension Additional Past Medical History / Comment(s): recently diagnosed with AFIB feary 2024 History of Any Multi-Drug Resistant Organisms: None Reported Past Surgical History: No Surgical Hx Reported Past Anesthesia/Blood Transfusion Reactions: No Reported Reaction Past Psychological History: No Psychological Hx Reported Smoking Status: Former smoker Past Alcohol Use History: None Reported Past Drug Use History: None Reported Medications and Allergies Home Medications Medication Instructions Recorded Confirmed Type Albuterol Nebulized [Ventolin 2.5 mg INHALATION RT-QID 05/21/24 06/11/24 History Nebulized] Albuterol Sulfate [Ventolin HFA] 2 puff INHALATION RT-Q4H PRN 05/21/24 06/11/24 History Budesonide [Pulmicort] 0.5 mg INHALATION RT-Q12H 05/21/24 06/11/24 History Fluticasone Nasal [place] [Flonase 2 spr EA NOSTRIL DAILY 05/21/24 06/11/24 History Nasal [place]] Fluticasone Propion/Salmeterol 1 puff INHALATION RT-BID 05/21/24 06/11/24 History [Advair 500-50 Diskus] Fluticasone/Umeclidin/Vilanter 1 puff INHALATION RT-DAILY 05/21/24 06/11/24 History [Trelegy Ellipta 200-62.5-25] Ibuprofen [Motrin] 800 mg PO TID PRN 05/21/24 06/11/24 History guaiFENesin [Mucinex] 1,200 mg PO BID PRN 05/21/24 06/11/24 History Apixaban [Eliquis] 5 mg PO BID #60 tab 05/24/24 06/11/24 Rx Atorvastatin [Lipitor] 20 mg PO HS #30 tab 05/24/24 06/11/24 Rx Ipratropium-Albuterol Nebulize 3 ml INHALATION RT-Q4H PRN each 05/24/24 06/11/24 Rx [Duoneb 0.5 mg-3 mg/3 ml Soln] Ipratropium-Albuterol Nebulize 3 ml INHALATION RT-QID #100 each 05/24/24 06/11/24 Rx [Duoneb 0.5 mg-3 mg/3 ml Soln] Metoprolol Tartrate [Lopressor] 50 mg PO BID #60 tab 05/24/24 06/11/24 Rx Tiotropium [place] [Spiriva 1 cap INHALATION RT-DAILY 06/11/24 06/11/24 History Handihaler] lisinopriL 40 mg PO DAILY 06/11/24 06/11/24 History Allergies Allergy/AdvReac Type Severity Reaction Status Date / Time No Known Allergies Allergy Verified 06/11/24 10:25 Physical Exam Vitals: Vital Signs Temp Pulse Pulse Resp BP BP Pulse Ox 06/11/24 13:00 110 H 14 111/76 96 06/11/24 12:24 110 H 06/11/24 12:10 97.6 F 108 H 20 122/80 94 L 06/11/24 12:09 108 H 06/11/24 11:52 87 18 124/76 98 06/11/24 08:50 103 H 18 121/76 98 06/11/24 08:45 88 06/11/24 08:36 96 06/11/24 06:40 101 H 18 111/87 94 L 06/11/24 04:38 115 H 20 119/83 94 L 06/11/24 03:49 126 H 18 106/77 94 L 06/11/24 02:36 99.6 F 126 H 20 151/117 95 Intake and Output 06/10/24 06/11/24 06/11/24 22:59 06:59 14:59 Other: Weight 106.594 kg 106.594 kg Results 06/11/24 03:45 06/11/24 03:45 Cardiac Enzymes 06/11/24 06/11/24 Range/Units 03:45 03:45 AST 61 H (17-59) U/L Troponin I 0.027 (0.000-0.034) ng/mL Coagulation 06/11/24 Range/Units 03:45 PT 10.9 (10.0-12.5) sec APTT 21.5 L (22.0-30.0) sec CBC 06/11/24 Range/Units 03:45 WBC 16.3 H (3.8-10.6) k/uL RBC 4.13 L (4.30-5.90) m/uL Hgb 13.5 (13.0-17.5) gm/dL Hct 41.4 (39.0-53.0) % Plt Count 278 (150-450) k/uL Comprehensive Metabolic Panel 06/11/24 Range/Units 03:45 Sodium 134 L (137-145) mmol/L Potassium 3.9 (3.5-5.1) mmol/L Chloride 103 (98-107) mmol/L Carbon Dioxide 25 (22-30) mmol/L BUN 13 (9-20) mg/dL Creatinine 0.89 (0.66-1.25) mg/dL Glucose 140 H (74-99) mg/dL Calcium 8.8 (8.4-10.2) mg/dL AST 61 H (17-59) U/L ALT 141 H (4-49) U/L Alkaline Phosphatase 88 (38-126) U/L Total Protein 6.0 L (6.3-8.2) g/dL Albumin 3.5 (3.5-5.0) g/dL Current Medications Generic Name Dose Route Start Last Admin Trade Name Freq PRN Reason Stop Dose Admin Albuterol/Ipratropium 3 ml 06/11/24 08:00 06/11/24 12:09 Ipratropium-Albuterol 3 Ml Neb INHALATION 3 ml RT-Q4H ROSALBA Administration Albuterol/Ipratropium 3 ml 06/11/24 08:37 Ipratropium-Albuterol 3 Ml Neb INHALATION RT-Q4H PRN shortness of breath Amiodarone HCl 400 mg 06/11/24 13:15 Amiodarone 200 Mg Tab PO 06/18/24 13:14 BID ROSALBA Apixaban 5 mg 06/11/24 09:00 06/11/24 08:53 Apixaban 5 Mg Tab PO 5 mg BID ROSALBA Administration Protocol Atorvastatin Calcium 40 mg 06/11/24 21:00 Atorvastatin 40 Mg Tab PO [facility] Budesonide/Formoterol Fumarate 2 puff 06/11/24 08:00 06/11/24 08:33 Symbicort 160-4.5 Mcg Inhaler INHALATION 2 puff RT-BID ROSALBA Administration Dapagliflozin 10 mg 06/11/24 13:15 06/11/24 14:09 Dapagliflozin Propanediol 10 Mg Tablet PO 10 mg DAILY ROSALBA Administration Fluticasone Propionate 2 spray 06/11/24 09:00 06/11/24 08:53 Fluticasone Nasal 50mcg/[place] 16gm Btl EA NOSTRIL 2 spray DAILY ROSALBA Administration Amiodarone HCl 150 mg/ 103 mls @ 618 mls/hr 06/11/24 13:06 Dextrose/Water IV 06/11/24 13:15 .Q10M ONE Magnesium Sulfate/Dextrose 1 100 mls @ 100 mls/hr 06/11/24 13:30 06/11/24 14:09 gm/ IV Solution IVPB 06/11/24 15:29 100 mls/hr Q1H ROSALBA Administration Magnesium Sulfate/Dextrose 1 100 mls @ 100 mls/hr 06/11/24 16:00 gm/ IV Solution IVPB 06/11/24 18:59 Q1H ROSALBA Losartan Potassium 12.5 mg 06/11/24 14:15 Losartan 25 Mg Tab PO DAILY [facility] Metoprolol Tartrate 75 mg 06/11/24 21:00 Metoprolol Tartrate 25 Mg Tab PO BID [facility] Naloxone HCl 0.2 mg 06/11/24 04:36 Naloxone 0.4 Mg/Ml 1 Ml Vial IV Q2M PRN Opioid Reversal Intake and Output 06/10/24 06/11/24 06/11/24 22:59 06:59 14:59 Other: Weight 106.594 kg 106.594 kg Patient Weight 06/12/24 07:59 Weight 106.594 kg 06/11/24 03:45 06/11/24 03:45
[2024-06-11] MEDS: AMIODARONE 200 MG TAB PO SCH (15:37)
[2024-06-11] MEDS: LOSARTAN 25 MG TAB PO SCH (15:37)
[2024-06-11] MEDS: DEXTROSE 5% IN WATER 100 ML with AMIODARONE 150 MG IV ONE (15:38)
[2024-06-11] MEDS: ATORVASTATIN 40 MG TAB PO SCH (20:26)
[2024-06-11] MEDS: METOPROLOL TARTRATE 25 MG TAB PO SCH (20:26)
[2024-06-11] MEDS ORDERED: ATORVASTATIN 20 MG TAB PO SCH (21:00)
[2024-06-12] MEDS ORDERED: SYMBICORT 160-4.5 MCG INHALER INHALATION SCH (08:00)
[2024-06-12 08:09] LABS: HCT 41.5 % (39.0-53.0); HGB 13.4 gm/dL (13.0-17.5); MCH 32.5 pg (25.0-35.0); MCHC 32.2 g/dL (31.0-37.0); MCV 101.1 fL (80.0-100.0); Macrocytosis Slight; Mean Platelet Volume 7.4; Platelet Count 294 k/uL (150-450); RBC 4.11 m/uL (4.30-5.90); RDW 13.7 % (11.5-15.5)
[2024-06-12 08:22] LABS: African American GFR (CKD) >90 (>60 ml/min/1.73 sqM); Anion Gap 6 mmol/L; Blood Urea Nitrogen 15 mg/dL (9-20); Calcium 8.7 mg/dL (8.4-10.2); Carbon Dioxide 27 mmol/L (22-30); Chloride 103 mmol/L (98-107); Glucose 127 mg/dL (74-99); Magnesium 2.2 mg/dL (1.6-2.3); Non-African American GFR(CKD) 78 (>60 ml/min/1.73 sqM); Potassium 3.8 mmol/L (3.5-5.1); Sodium 136 mmol/L (137-145)
--- NOTE | 2024-06-12 10:45 | P.PN ---
Subjective Progress Note Date: 06/12/24 63 year old M with A-Fib, HTN, COPD presents to the ED as a transfer from outside hospital for SOB, chest pain and palpitations. In the ED he underwent extensive evaluation. BP 115/117, HR 126, T 99.6F, RR 20, 95% on RA. CBC, Coag panel, CMP significant for WBC 16.3, RBC 4.13, MCV 100.3, APTT 21.5, Na 134, glu 140, AST 61, ALT 141. Trop 0.027, 0.018. BNP 4820. EKG showing A-Fib with RVR rate of 125. Started on Cardizem drip and admitted for Cardiology evaluation. Cardizem drip discontinued by Cardiology and bolused Amiodarone IV, Metoprolol increased. 06/12 Patient was seen and examined. He reports feeling winded ambulating to the washroom. Adamant about getting a heart cath. HR in the 80s on Telemetry. Discussed with Dr. Grady, possible JUAN and cardioversion tomorrow. CBC and BMP significant for RBC 4.11, MCV 101.1, Na 136, glu 127. Mag 2.2. Trop 0.021. General: non toxic, no distress, appears at stated age Derm: warm, dry Head: atraumatic, normocephalic, symmetric Mouth: no lip lesion, mucus membranes moist Cardiovascular: S1S2 irreg, no murmur Lungs: Expiratory wheezing bilaterally, no rales , no accessory muscle use Ext: no gross muscle atrophy, no edema, no contractures Neuro: no focal neuro deficits Psych: Alert and oriented. Based on my assessment of this patient, this patient meets a high complexity level of care. Atrial fibrillation with RVR: Metoprolol 75 mg PO BID. Amidarone 400 mg PO BID. Maintain K > 4 and Mg > 2 (3.8 and 2.2 today). Telemetry monitoring. Possible T EE cardioversion tomorrow? Cardiology on board. Mild COPD exacerbation: DuoNeb QID scheduled and PRN SOB/wheezing. Symbicort 2 INH BID. Hypertension: BP 101/64. Losartan 12.5 mg PO QD. Metoprolol as above. HFrEF: Not in acute exacerbation. Echo EF 40% previous hospitalization. Metoprolol and ACEi as above. Farxiga 10 mg PO QD started by Cardiology. Would benefit from Aldactone. Cardiology on board. CODE STATUS: FULL CODE. DVT Prophylaxis: Eliquis GI Prophylaxis: Designated medical POA if patient is not able to make medical decisions for themselves: I have reviewed the following advertising consultant notes: Cardiology. I have reviewed the results of the following tests: CBC, BMP, Mag, Trop. I have ordered the following tests: I have discussed the care of this patient with the following independent historian: I have independently interpreted the following test below: I have discussed the management of this patient with the following physician: Dr. Gardy. Objective - Vital Signs Vital signs: Vital Signs Temp 98.1 F 06/12/24 08:30 Pulse 109 H 06/12/24 08:30 Resp 16 06/12/24 08:30 BP 101/64 06/12/24 08:30 Pulse Ox 91 L 06/12/24 08:30 FiO2 Intake & Output 06/11/24 06/12/24 06/12/24 17:59 06:59 18:59 Intake Total 180 Balance 180 Weight Intake: Intake, IV Titration Amount Diltiazem 125 mg In Sodium Chloride 0.9% 100 ml @ 5 MG/HR 5 mls/hr IV .Q24H ROSALBA Rx#:[id number] Oral 180 Other: # Voids # Bowel Movements - Labs CBC & Chem 7: 06/12/24 07:55 06/12/24 07:55 Labs: Abnormal Lab Results - Last 24 Hours (Table) 06/12/24 06/12/24 Range/Units 07:55 07:55 RBC 4.11 L (4.30-5.90) m/uL MCV 101.1 H (80.0-100.0) fL Sodium 136 L (137-145) mmol/L Glucose 127 H (74-99) mg/dL
--- NOTE | 2024-06-12 18:41 | P.PN ---
Subjective Progress Note Date: 06/12/24 HISTORY OF PRESENTING ILLNESS: 63-year-old male was referred from [facility] to [facility]. May 21, 2024 he was admitted to [facility] because of new onset atrial fibrillation with RVR and influenza infection. He also has prior history of COPD. At that time he had associated dyspnea on exertion shortness of breath and chest pressure. He was offered rate control strategy and was optimized from a COPD standpoint and was discharged home with recommended outpatient follow-up for rhythm control and ischemic evaluation. His echocardiogram on last admission showed an EF of 40 to 45% with mild mitral regurgitation and mild to moderate left atrial dilatation. This time patient presents to the hospital because of concerns of substernal chest pressure increased shortness of breath and atrial fibrillation with RVR. He was transferred from [facility] to [facility] because patient is interested in getting a heart catheterization procedure to rule out obstruction as etiology of his substernal chest pressure. Admission Vitals: 121/76, heart rate 103 bpm Admission Labs: TSH 0.19 which is low, T4 is normal at 1.3, LDL 120, NT-proBNP 4000, HbA1c 7.3, Hb 13, BUN and creatinine are normal with potassium of 3.9 and magnesium of 2.1. Admission EKG: EKG shows atrial fibrillation with RVR with heart rate of 125 beats minute on admission. There were no significant ST-T wave changes at that heart rate. Progress note 06/12/2024 Patient is seen and examined at bedside this a.m. He is in atrial fibrillation however his rates are better controlled. Otherwise blood pressure 148/83 At this time patient is very adamant in getting a heart catheterization done however I have educated the patient in extensive details that he does not have any obvious clinical indications to get a heart catheterization at this time. His symptoms of palpitations and shortness of breath are most likely related to atrial fibrillation. He would feel clinically improved after getting atrial fibrillation ablation performed. Thereafter he should get ischemic evaluation starting from a stress test. If stress test is abnormal then consider cardiac catheterization PHYSICAL EXAMINATION: Neck: Brisk carotid upstroke, no jugular venous distention. Lungs: Mild crackles and wheezing. Heart: Irregularly irregular, S1-S2, , no murmur or rub. Abdomen: Soft nontender, positive bowel sounds. Extremities: No edema, intact distal pulses. Neuro: Alert, oritented, no focal deficits. Detailed neuro exam was not performed. ASSESSMENT: # Atrial fibrillation with RVR # Cardiomyopathy, likely tachycardia induced. LVEF of 40 to 45% # Dyspnea on exertion and substernal chest pressure # Ex-tobacco smoker # Obesity # Suspect sleep apnea # COPD PLAN: Plan for JUAN cardioversion tomorrow Increase metoprolol to 75 mg twice daily. Continue Eliquis 5 mg twice daily Farxiga 10 mg daily, Lipitor 40 mg. Increase losartan to 25 mg daily amiodarone 400 mg twice daily thereafter for 7 days. Amiodarone taper thereafter Patient appears to be noncompliant as he did not follow-up follow-up on outpatient basis with cardiology after his recent hospitalization. He would eventually need an ischemic evaluation with a stress test. Objective - Vital Signs Vital signs: Vital Signs Temp 98.1 F 06/12/24 15:25 Pulse 88 06/12/24 15:52 Resp 16 06/12/24 15:25 BP 148/83 06/12/24 15:25 Pulse Ox 96 06/12/24 15:25 FiO2 Intake & Output 06/11/24 06/12/24 06/12/24 17:59 06:59 18:59 Intake Total 410 Balance 410 Weight Intake: Intake, IV Titration Amount Diltiazem 125 mg In Sodium Chloride 0.9% 100 ml @ 5 MG/HR 5 mls/hr IV .Q24H ORSALBA Rx#:[id number] Oral 410 Other: # Voids 1 # Bowel Movements 0 - Labs CBC & Chem 7: 06/12/24 07:55 06/12/24 07:55 Labs: Abnormal Lab Results - Last 24 Hours (Table) 06/12/24 06/12/24 Range/Units 07:55 07:55 RBC 4.11 L (4.30-5.90) m/uL MCV 101.1 H (80.0-100.0) fL Sodium 136 L (137-145) mmol/L Glucose 127 H (74-99) mg/dL
[2024-06-12] MEDS: SODIUM CHLORIDE 0.9% 1,000 ML IV SCH (21:20)
[2024-06-13 05:48] LABS: African American GFR (CKD) >90 (>60 ml/min/1.73 sqM); Anion Gap 5 mmol/L; Blood Urea Nitrogen 16 mg/dL (9-20); Calcium 8.6 mg/dL (8.4-10.2); Carbon Dioxide 26 mmol/L (22-30); Chloride 104 mmol/L (98-107); Glucose 110 mg/dL (74-99); Non-African American GFR(CKD) 85 (>60 ml/min/1.73 sqM); Potassium 4.1 mmol/L (3.5-5.1); Sodium 135 mmol/L (137-145)
[2024-06-13] MEDS ORDERED: BENZOCAINE SPRAY 1 CAN TOPICAL PRN (06:00)
[2024-06-13] MEDS ORDERED: MIDAZOLAM 2 MG/2 ML VIAL IV PRN (06:00)
[2024-06-13] MEDS ORDERED: fentaNYL (PF) 50 MCG/ML 5 ML AMP IVP PRN (06:00)
--- NOTE | 2024-06-13 06:19 | P.PN ---
Subjective Progress Note Date: 06/13/24 63 year old M with A-Fib, HTN, COPD presents to the ED as a transfer from outside hospital for SOB, chest pain and palpitations. In the ED he underwent extensive evaluation. BP 115/117, HR 126, T 99.6F, RR 20, 95% on RA. CBC, Coag panel, CMP significant for WBC 16.3, RBC 4.13, MCV 100.3, APTT 21.5, Na 134, glu 140, AST 61, ALT 141. Trop 0.027, 0.018. BNP 4820. EKG showing A-Fib with RVR rate of 125. Started on Cardizem drip and admitted for Cardiology evaluation. Cardizem drip discontinued by Cardiology and bolused Amiodarone IV, Metoprolol increased. Plan is for JUAN cardioversion 06/13. 06/13 Patient was seen and examined. Continued SOB ambulating to the washroom. Adamant about getting a heart cath. HR 78 on telemetry. Plans for JUAN and cardioversion today, will eventually need an ischemic workup per Cardiology. BMP Na 135, glu 110. Mag 2. Vitals BP 128/89, HR 117, R 97.9F, RR 16, 96% on RA. General: non toxic, no distress, appears at stated age Derm: warm, dry Head: atraumatic, normocephalic, symmetric Mouth: no lip lesion, mucus membranes moist Cardiovascular: S1S2 irreg, no murmur Lungs: Expiratory wheezing bilaterally, no rales , no accessory muscle use Ext: no gross muscle atrophy, no edema, no contractures Neuro: no focal neuro deficits Psych: Alert and oriented. Based on my assessment of this patient, this patient meets a high complexity level of care. Atrial fibrillation with RVR: Metoprolol 75 mg PO BID. Amidarone 400 mg PO BID. Maintain K > 4 and Mg > 2. Telemetry monitoring. JUAN cardioversion today. Cardiology on board. Mild COPD exacerbation: DuoNeb QID scheduled and PRN SOB/wheezing. Symbicort 2 INH BID. Hypertension: BP 128/89. Losartan 12.5 mg PO QD. Metoprolol as above. HFrEF: Not in acute exacerbation. Echo EF 40% previous hospitalization. Metoprolol and ACEi as above. Farxiga 10 mg PO QD started by Cardiology. Would benefit from Aldactone. Cardiology on board. CODE STATUS: FULL CODE. DVT Prophylaxis: Eliquis GI Prophylaxis: Designated medical POA if patient is not able to make medical decisions for themselves: I have reviewed the following exchange underwriting consultant notes: Cardiology I have reviewed the results of the following tests: BMP. Mag. I have ordered the following tests: I have discussed the care of this patient with the following independent his samson: I have independently interpreted the following test below: I have discussed the management of this patient with the following physician: Objective - Vital Signs Vital signs: Vital Signs Temp 97.9 F 06/12/24 20:00 Pulse 102 H 06/13/24 01:27 Resp 18 06/13/24 01:27 BP 128/89 06/12/24 20:00 Pulse Ox 96 06/12/24 20:00 FiO2 Intake & Output 06/12/24 06/12/24 06/13/24 06:59 18:59 06:59 Intake Total 410 Balance 410 Weight 106.1 kg Intake: Oral 410 Other: # Voids 1 3 # Bowel Movements 0 - Labs CBC & Chem 7: 06/12/24 07:55 06/13/24 04:22 Labs: Abnormal Lab Results - Last 24 Hours (Table) 06/12/24 06/12/24 Range/Units 07:55 07:55 RBC 4.11 L (4.30-5.90) m/uL MCV 101.1 H (80.0-100.0) fL Sodium 136 L (137-145) mmol/L Glucose 127 H (74-99) mg/dL
[2024-06-13] MEDS: IV FLUID CONTINUATION 1,000 ML IV ONE (12:56)
[2024-06-13] MEDS ORDERED: PROPOFOL 10 MG/ML 20 ML VIAL IV ONE (13:00)
[2024-06-13] MEDS ORDERED: LIDOCAINE 1% INJ 10MG/ML (20 ML MDV) ONE (13:00)
--- NOTE | 2024-06-13 15:47 | P.TEE ---
Date of Procedure: 06/13/24 Description of Procedure(s): Procedure performed: 1. Transesophageal Echocardiogram. 2. Synchronized Cardioversion attempted but not performed due to left atrial appendage thrombus 3. Bubble study Indications: Persistent symptomatic atrial fibrillation Consent: I have discussed the risks, benefits and alternative therapies for the above-mentioned procedure. The patient has indicated understanding and acceptance of the risks of the procedure. Signed consent was obtained and was placed in the paper chart. Moderate conscious sedation: Moderate conscious sedation was administered by anesthesia, see separate report. Procedural Steps: Timeout was performed in usual fashion. Patient's heart rate, blood pressure, oxygen saturation and ECG were monitored. After achieving appropriate moderate conscious sedation, JUAN JUAN probe was advanced without difficulty and without any immediate complicatio ns to the esophagus. JUAN study was performed with color flow doppler, pulsed wave doppler and continuous wave doppler. Agitated saline bubbles were injected to assess for any intra-atrial shunt. The probe was then removed. SYNCHRONIZED CARDIOVERSION After making sure that there is no evidence of intracardiac thrombus, pacer pads were placed and secured on patients chest and back. Synchronized cardioversion was perfromed using [150] J. [1] attempt. Sinus rhythm was confirmed with a 12 lead EKG. Patient tolerated the procedure well. Patient was transferred to the post procedure area in stable and satisfactory condition. Complications: none Blood loss: none FINDINGS Left Atrium: Moderate LA dilatation. No evidence of mass or thrombus seen Left Atrial Appendage: Spontaneous echogenic contrast and evidence of small AV thrombus noticed in left atrial appendage. Inter atrial septum: Intact inter-atrial septum. No evidence of atrial septal defect or patent foramen ovale on color doppler. No evidence of right to left intracardiac shunting on bubble study. Left Ventricle: Moderately reduced global LV systolic function Right Atrium: Mild RA dilatation Right Ventricle: Normal global RV size and mildly reduced systolic function. Aortic Valve: Structurally normal Trileaflet, trace aortic regurgitation. Mitral Valve: Struturally normal. Mild mitral regurgitation likely functional. Mild regurgitation on doppler assessment Pulmonic Valve: Not well visualized. Tricuspid Valve: Structurally normal. Mild regurgitation. Ascending aorta, Aortic root and Aortic arch: Mild intimal thickening, mild calcified and noncalcified atheroma seen in the ascending aorta. Normal size ascending aorta and aortic root Descending aorta: Mild intimal thickening. Mild calcific atheroma seen in descending aorta No pericardial effusion CONCLUSION: Suspected left atrial appendage thrombus Moderate biatrial dilatation Moderate global LV systolic dysfunction Negative bubble study with no evidence of [id number] intracardiac shunting Mild mitral regurgitation Calcified and noncalcified atheroma noted in the ascending and descending aorta, small size. Plan Due to suspected left atrial appendage thrombus cardioversion was not performed. Recommend Uninterrupted Eliquis use. Suspect LV systolic dysfunction. Repeat limited echo to assess LVEF. Last echo from May 2024 shows an EF of 40% Farxiga 10 mg, losartan 12.5 mg, Aldactone 25 mg, torsemide 10 mg Metoprolol 100 mg twice daily, amiodarone taper, lipitor 40 mg Once patient is rate controlled, okay to discharge patient Plan is to offer rhythm control with amiodarone. Repeat JUAN cardioversion in a month. Vega Grady MD, RPVI, FACC Thank you for allowing [facility] to participate in this patient's care. Feel free to reach out in case of any followup questions.
[2024-06-13] MEDS: TORSEMIDE 20 MG TAB PO SCH (16:25)
[2024-06-13] MEDS: SPIRONOLACTONE 25 MG TAB PO SCH (16:25)
[2024-06-13] MEDS: METOPROLOL TARTRATE 50 MG TAB PO SCH (20:57)
[2024-06-14 08:17] VITALS: TEMP 98
[2024-06-14 12:10] VITALS: BP 105/71
--- NOTE | 2024-06-14 12:20 | P.PN ---
Subjective Progress Note Date: 06/14/24 HISTORY OF PRESENTING ILLNESS: 63-year-old male was referred from [facility] to [facility]. May 21, 2024 he was admitted to [facility] because of new onset atrial fibrillation with RVR and influenza infection. He also has prior history of COPD. At that time he had associated dyspnea on exertion shortness of breath and chest pressure. He was offered rate control strategy and was optimized from a COPD standpoint and was discharged home with recommended outpatient follow-up for rhythm control and ischemic evaluation. His echocardiogram on last admission showed an EF of 40 to 45% with mild mitral regurgitation and mild to moderate left atrial dilatation. This time patient presents to the hospital because of concerns of substernal chest pressure increased shortness of breath and atrial fibrillation with RVR. He was transferred from [facility] to [facility] because patient is interested in getting a heart catheterization procedure to rule out obstruction as etiology of his substernal chest pressure. Admission Vitals: 121/76, heart rate 103 bpm Admission Labs: TSH 0.19 which is low, T4 is normal at 1.3, LDL 120, NT-proBNP 4000, HbA1c 7.3, Hb 13, BUN and creatinine are normal with potassium of 3.9 and magnesium of 2.1. Admission EKG: EKG shows atrial fibrillation with RVR with heart rate of 125 beats minute on admission. There were no significant ST-T wave changes at that heart rate. Progress note 06/12/2024 Patient is seen and examined at bedside this a.m. He is in atrial fibrillation however his rates are better controlled. Otherwise blood pressure 148/83 At this time patient is very adamant in getting a heart catheterization done however I have educated the patient in extensive details that he does not have any obvious clinical indications to get a heart catheterization at this time. His symptoms of palpitations and shortness of breath are most likely related to atrial fibrillation. He would feel clinically improved after getting atrial fibrillation ablation performed. Thereafter he should get ischemic evaluation starting from a stress test. If stress test is abnormal then consider cardiac catheterization 06/14 Patient seen and examined. Yesterday, patient underwent JUAN which found suspected left atrial appendage thrombus, moderate global LV systolic dysfunction. Negative bubble study, mild mitral regurgitation. Due to the suspected left atrial appendage thrombus, cardioversion was not performed. Following the procedure, patient was started on torsemide 10 mg daily, Aldactone 25 mg daily. Patient denies any new concerns today. He is asking regarding cardiac catheterization will need to be addressed in the office with Dr. Grady. Patient may benefit from an outpatient stress test. Patient to continue on E liquis and may undergo cardioversion at a later time. Heart rates have been controlled in the 80s, blood pressure 105/61, pulse ox 92% on room air. Repeat blood work reveals sodium 135, potassium 4.1, creatinine 0.97. PHYSICAL EXAMINATION: Neck: Brisk carotid upstroke, no jugular venous distention. Lungs: Mild crackles and wheezing. Heart: Irregularly irregular, S1-S2, , no murmur or rub. Abdomen: Soft nontender, positive bowel sounds. Extremities: No edema, intact distal pulses. Neuro: Alert, oritented, no focal deficits. Detailed neuro exam was not performed. 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 LVEF of 40 to 45% # Dyspnea on exertion and substernal chest pressure # Ex-tobacco smoker # Obesity # Suspect sleep apnea # COPD PLAN: Continue metoprolol 100 mg twice daily. Continue Eliquis 5 mg twice daily Continue Farxiga 10 mg daily, Lipitor 40 mg, losartan 12.5 mg daily, Aldactone 25 mg daily, torsemide 10 mg daily Continue amiodarone 400 mg twice daily for 4 more days, then 200 mg twice daily for 7 days, then 200 mg daily Patient is cleared from cardiology for discharge He would eventually need an ischemic evaluation with a stress test. Patient will follow-up in the office with Dr. Grady in 1 week. Nurse practitioner note has been reviewed, I agree with documented findings and plan of care. Patient was seen and examined. Objective - Vital Signs Vital signs: Vital Signs Temp 98 F 06/14/24 08:16 Pulse 83 06/14/24 08:16 Resp 16 06/14/24 08:16 BP 123/86 06/14/24 08:16 Pulse Ox 93 L 06/14/24 08:16 FiO2 Intake & Output 06/13/24 06/14/24 06/14/24 18:59 06:59 18:59 Intake Total 100 Balance 100 Weight 95 kg Intake: IV 100 Other: # Voids 1 - Labs CBC & Chem 7: 06/12/24 07:55 06/13/24 04:22
--- NOTE | 2024-06-14 13:57 | P.DS ---
Providers Date of admission: 06/12/24 08:13 Attending physician: Toño Aguilar MD Consults: 06/11/24 04:36 Consult Physician Urgent Consulting Provider: Veag Grady Consult Reason/Comments: A fib RVR Do you want consulting provider notified?: Yes Primary care physician: Physician Nonstaff Hospital Course: Discharge Diagnosis: A-fib with RVR, hypertension Admitted for thrombosed HFrEF, cardiomyopathy likely tachycardia induced EF 40 to 45% Dyspnea on exertion History of tobacco use Mild COPD distribution pain resolved Hospital Course: 63 year old M with A-Fib, HTN, COPD presents to the ED as a transfer from outside hospital for SOB, chest pain and palpitations. In the ED he underwent extensive evaluation. BP 115/117, HR 126, T 99.6F, RR 20, 95% on RA. CBC, Coag panel, CMP significant for WBC 16.3, RBC 4.13, MCV 100.3, APTT 21.5, Na 134, glu 140, AST 61, ALT 141. Trop 0.027, 0.018. BNP 4820. EKG showing A-Fib with RVR rate of 125. Started on Cardizem drip and admitted for Cardiology evaluation. Cardizem drip discontinued by Cardiology and bolused Amiodarone IV, Metoprolol increased. JUAN cardioversion 06/13 which found suspected left atrial appendage thrombus, moderate global LV systolic dysfunction. Negative bubble study, mild mitral regurgitation. Due to the suspected left atrial appendage thrombus, cardioversion was not performed. Following the procedure, patient was started on torsemide 10 mg daily, Aldactone 25 mg daily. . Cleared for discharge by cardiology on 06/14, feeling at baseline Continue metoprolol 100 mg twice daily. Continue Eliquis 5 mg twice daily Continue Farxiga 10 mg daily, Lipitor 40 mg, losartan 12.5 mg daily, Aldactone 25 mg daily, torsemide 10 mg daily Continue amiodarone 400 mg twice daily for 4 more days, then 200 mg twice daily for 7 days, then 200 mg daily Patient will follow-up in the office with Dr. Grady in 1 week. Patient seen and examined at bedside. Vital signs reviewed and stable. General: [nontoxic], [no distress], [appears at stated age] Derm: [warm], [dry] Head: [atraumatic], [normocephalic], [symmetric] Eyes: [EOMI], [no lid lag], [anicteric sclera] Mouth: [no lip lesion], [mucus membranes moist] Cardiovascular: [S1S2 irreg], [no murmur] Lungs: [CTA bilateral], [no rhonchi, no rales] , [no accessory muscle use] Abdominal: [soft], [ nontender to palpation], [no guarding], [no appreciable organomegaly] Ext: [no gross muscle atrophy], [no edema], [no contractures] Neuro: [ CN II-XI grossly intact], [no focal neuro deficits] Psych: [Alert], [oriented], [appropriate affect] A total of 45 minutes of time were spent preparing this complex discharge summary. Patient was discharged on 06/14. Patient Condition at Discharge: Stable Plan - Discharge Summary New Discharge Prescriptions: New Amiodarone [Cordarone] 400 mg PO BID #44 tab Losartan [Cozaar] 12.5 mg PO DAILY #30 tab Dapagliflozin Propanediol [Farxiga] 10 mg PO DAILY #30 tab Spironolactone [Aldactone] 25 mg PO DAILY #30 tab Torsemide [Demadex] 10 mg PO DAILY #30 tab Metoprolol Tartrate [Lopressor] 100 mg PO BID #60 tab Continue Albuterol Sulfate [Ventolin HFA] 2 puff INHALATION RT-Q4H PRN PRN Reason: Shortness Of Breath guaiFENesin [Mucinex] 1,200 mg PO BID PRN PRN Reason: Congestion Fluticasone Nasal Richardson [Flonase Nasal Richardson] 2 spr EA NOSTRIL DAILY Budesonide [Pulmicort] 0.5 mg INHALATION RT-Q12H Fluticasone Propion/Salmeterol [Advair 500-50 Diskus] 1 puff INHALATION RT- BID Ipratropium-Albuterol Nebulize [Duoneb 0.5 mg-3 mg/3 ml Soln] 3 ml INHALATION RT-QID #100 each Ipratropium-Albuterol Nebulize [Duoneb 0.5 mg-3 mg/3 ml Soln] 3 ml INHALATION RT-Q4H PRN each PRN Reason: shortness of breath Apixaban [Eliquis] 5 mg PO BID #60 tab Fluticasone/Umeclidin/Vilanter [Trelegy Ellipta 200-62.5-25] 1 puff INHALATION RT-DAILY Albuterol Nebulized [Ventolin Nebulized] 2.5 mg INHALATION RT-QID Tiotropium [place] [Spiriva Handihaler] 1 cap INHALATION RT-DAILY Changed Atorvastatin [Lipitor] 40 mg PO HS #30 tab Discontinued Ibuprofen [Motrin] 800 mg PO TID PRN PRN Reason: Pain Metoprolol Tartrate [Lopressor] 50 mg PO BID #60 tab lisinopriL 40 mg PO DAILY Discharge Medication List Albuterol Nebulized [Ventolin Nebulized] 2.5 mg INHALATION RT-QID 05/21/24 [History] Albuterol Sulfate [Ventolin HFA] 2 puff INHALATION RT-Q4H PRN 05/21/24 [History] Budesonide [Pulmicort] 0.5 mg INHALATION RT-Q12H 05/21/24 [History] Fluticasone Nasal Richardson [Flonase Nasal Richardson] 2 spr EA NOSTRIL DAILY 05/21/24 [History] Fluticasone Propion/Salmeterol [Advair 500-50 Diskus] 1 puff INHALATION RT-BID 05/21/24 [History] Fluticasone/Umeclidin/Vilanter [Trelegy Ellipta 200-62.5-25] 1 puff INHALATION RT-DAILY 05/21/24 [History] guaiFENesin [Mucinex] 1,200 mg PO BID PRN 05/21/24 [History] Apixaban [Eliquis] 5 mg PO BID #60 tab 05/24/24 [Rx] Ipratropium-Albuterol Nebulize [Duoneb 0.5 mg-3 mg/3 ml Soln] 3 ml INHALATION RT-Q4H PRN each 05/24/24 [Rx] Ipratropium-Albuterol Nebulize [Duoneb 0.5 mg-3 mg/3 ml Soln] 3 ml INHALATION RT-QID #100 each 05/24/24 [Rx] Tiotropium [place] [Spiriva Handihaler] 1 cap INHALATION RT-DAILY 06/11/24 [History] Amiodarone [Cordarone] 400 mg PO BID #44 tab 06/14/24 [Rx] Atorvastatin [Lipitor] 40 mg PO HS #30 tab 06/14/24 [Rx] Dapagliflozin Propanediol [Farxiga] 10 mg PO DAILY #30 tab 06/14/24 [Rx] Losartan [Cozaar] 12.5 mg PO DAILY #30 tab 06/14/24 [Rx] Metoprolol Tartrate [Lopressor] 100 mg PO BID #60 tab 06/14/24 [Rx] Spironolactone [Aldactone] 25 mg PO DAILY #30 tab 06/14/24 [Rx] Torsemide [Demadex] 10 mg PO DAILY #30 tab 06/14/24 [Rx] Follow up Appointment(s)/Referral(s): Vega Grady MD [Medical Doctor] - 1 Week Nonstaff,Physician [Primary Care Provider] - 1-2 days Activity/Diet/Wound Care/Special Instructions: Continue metoprolol 100 mg twice daily. Continue Eliquis 5 mg twice daily Continue Farxiga 10 mg daily, Lipitor 40 mg, losartan 12.5 mg daily, Aldactone 25 mg daily, torsemide 10 mg daily Continue amiodarone 400 mg twice daily for 4 more days, then 200 mg twice daily for 7 days, then 200 mg daily follow up with your PCP and cardiology Discharge Disposition: HOME SELF-CARE
[2024-06-14 15:49] VITALS: RESP 18
[2024-06-14 15:56] VITALS: PULSE 88
--- NOTE | 2024-06-14 17:03 | CA ---
Transthoracic Echo Report Name: Ray Forte Age: 63 Gender: M : 1960 Exam Date: 06/14/2024 15:30 Exam Location: [place] [facility] Ht (in): 72 Wt (lb): 105 Ordering Physician: Vega Grady MD ([id number]) Attending/Referring Phys: Legal Stenographer Emily Espinal RDCS Procedure CPT: Indications: cardiomyopathy Cardiac Hx: No IV, patient being discharged as echo performed Technical Quality: Fair Contrast 1: Total Dose (mL): Contrast 2: Total Dose (mL): MEASUREMENTS (Male / Female) Normal Values 2D ECHO LV Diastolic Diameter PLAX 6.2 cm 4.2 - 5.9 / 3.9 - 5.3 cm LV Systolic Diameter PLAX 5.4 cm IVS Diastolic Thickness 0.8 cm 0.6 - 1.0 / 0.6 - 0.9 cm LVPW Diastolic Thickness 1.0 cm 0.6 - 1.0 / 0.6 - 0.9 cm LV Relative Wall Thickness 0.3 LV Diastolic Volume MOD BP 186.5 cm??? 67 - 155 / 56 - 104 cm??? LV Systolic Volume MOD BP 141.1 cm??? 22 - 58 / 19 - 49 cm??? LV Ejection Fraction MOD BP 24.4 % >= 55 % LV Cardiac Index MOD BP 2468.2 cm???/min???m??? LV Diastolic Volume MOD 4C 199.4 cm??? LV Systolic Volume MOD 4C 145.9 cm??? LV Ejection Fraction MOD 4C 26.8 % LV Cardiac Index MOD 4C 2906.5 cm???/min???m??? LV Diastolic Length 4C 9.4 cm LV Systolic Length 4C 9.0 cm LV Diastolic Volume MOD 2C 171.1 cm??? LV Systolic Volume MOD 2C 131.8 cm??? LV Ejection Fraction MOD 2C 23.0 % LV Cardiac Index MOD 2C 2135.9 cm???/min???m??? LV Diastolic Length 2C 9.7 cm LV Systolic Length 2C 9.4 cm FINDINGS Left Ventricle Left ventricular ejection fraction is estimated at 20-25 %. Mildly increased left ventricular diastolic diameter. Moderately increased left ventricular diastolic volume. Severely increased left ventricular systolic volume. Severely decreased left ventricular ejection fraction. Right Ventricle Right Atrium Left Atrium Mitral Valve Aortic Valve Tricuspid Valve Pulmonic Valve Pericardium No pericardial effusion. Aorta CONCLUSIONS Limited 2-D echo Left ventricular ejection fraction 20-25% Previewed by: Dr. Deyvi Cooley DO (Electronically Signed) Final Date: 14 June 2024 17:02
== END 2024-06-14 17:02 | disposition home or self-care (01) | DRG 309 ==
LOC: EC 02:33 → 3SCARD 04:36 → 6NMEDSUR 11:11 → 3SCARD 14:44 → OBSVTOIN 06-12 08:13
PROVIDERS: ADMIT Internal Medicine; ATTEND Internal Medicine
PROC: 3E033RZ Introduction of Antiarrhythmic into Peripheral Vein, Percutaneous Approach (ICD-10-PCS; principal; 2024-06-11)
PROC: B24BZZ4 Ultrasonography of Heart with Aorta, Transesophageal (ICD-10-PCS; 2024-06-13)
DX: I48.91 Unspecified atrial fibrillation (principal); I50.20 Unspecified systolic (congestive) heart failure; I51.3 Intracardiac thrombosis, not elsewhere classified; J44.1 Chronic obstructive pulmonary disease with (acute) exacerbation; I11.0 Hypertensive heart disease with heart failure; E66.9 Obesity, unspecified; Z53.09 Procedure and treatment not carried out because of other contraindication; I42.9 Cardiomyopathy, unspecified; G47.30 Sleep apnea, unspecified; Z79.01 Long term (current) use of anticoagulants; Z79.899 Other long term (current) drug therapy; Z87.891 Personal history of nicotine dependence; Z68.28 Body mass index [BMI] 28.0-28.9, adult; Z91.199 Patient's noncompliance with other medical treatment and regimen due to unspecified reason
CPT/HCPCS: 36415; 80048; 80053; 83735; 83880; 84484; 85025; 85027; 85610; 85730; 93005; 93308; 93312; 93320; 93325; 94640; 96365; 96366; 99291

== ENCOUNTER 2024-07-09 07:10 | Inpatient (IN) | payer MEDICARE, OTHER ==
[2024-07-09] MEDS: IPRATROPIUM-ALBUTEROL 3 ML NEB INHALATION STA ×2 (08:05→12:03)
--- NOTE | 2024-07-09 08:06 | ED ---
SOB HPI - General Chief Complaint: Shortness of Breath Stated Complaint: SOB Time Seen by Provider: 07/09/24 07:24 Source: patient, EMS Mode of arrival: EMS Limitations: no limitations - History of Present Illness Initial Comments: 63-year-old male with past medical history of COPD not requiring home oxygen, persistent A-fib, hypertension presents to the ER with chief complaint of shortness of breath. Patient states symptoms began on Thursday and has been progressively worsening. Patient was initially seen at [place] and transferred to our ER for nephrology consultation. Patient reports that he has been to the ER twice in the past 6 weeks. On last admission patient was found to have atrial thrombus on JUAN which will be managed with Eliquis. Patient denies any lower extremity swelling or calf pain on examination. He denies chest pain, fevers, chills, abdominal pain. - Related Data Home Oxygen Therapy: No Home Medications Medication Instructions Recorded Confirmed Albuterol Nebulized [Ventolin 2.5 mg INHALATION RT-QID 05/21/24 06/11/24 Nebulized] Albuterol Sulfate [Ventolin HFA] 2 puff INHALATION RT-Q4H PRN 05/21/24 06/11/24 Budesonide [Pulmicort] 0.5 mg INHALATION RT-Q12H 05/21/24 06/11/24 Fluticasone Nasal [place] [Flonase 2 spr EA NOSTRIL DAILY 05/21/24 06/11/24 Nasal Flippin] Fluticasone Propion/Salmeterol 1 puff INHALATION RT-BID 05/21/24 06/11/24 [Advair 500-50 Diskus] Fluticasone/Umeclidin/Vilanter 1 puff INHALATION RT-DAILY 05/21/24 06/11/24 [Trelegy Ellipta 200-62.5-25] guaiFENesin [Mucinex] 1,200 mg PO BID PRN 05/21/24 06/11/24 Tiotropium [place] [Spiriva 1 cap INHALATION RT-DAILY 06/11/24 06/11/24 Handihaler] Previous Rx's Medication Instructions Recorded Apixaban [Eliquis] 5 mg PO BID #60 tab 05/24/24 Ipratropium-Albuterol Nebulize 3 ml INHALATION RT-Q4H PRN each 05/24/24 [Duoneb 0.5 mg-3 mg/3 ml Soln] Ipratropium-Albuterol Nebulize 3 ml INHALATION RT-QID #100 each 05/24/24 [Duoneb 0.5 mg-3 mg/3 ml Soln] Amiodarone [Cordarone] 400 mg PO BID #44 tab 06/14/24 Atorvastatin [Lipitor] 40 mg PO HS #30 tab 06/14/24 Dapagliflozin Propanediol [Farxiga] 10 mg PO DAILY #30 tab 06/14/24 Losartan [Cozaar] 12.5 mg PO DAILY #30 tab 06/14/24 Metoprolol Tartrate [Lopressor] 100 mg PO BID #120 tab 06/14/24 Spironolactone [Aldactone] 25 mg PO DAILY #30 tab 06/14/24 Torsemide [Demadex] 10 mg PO DAILY #30 tab 06/14/24 Allergies Allergy/AdvReac Type Severity Reaction Status Date / Time No Known Allergies Allergy Verified 07/09/24 07:18 Review of Systems ROS Statement: Those systems with pertinent positive or pertinent negative responses have been documented in the HPI. ROS Other: All systems not noted in ROS Statement are negative. Constitutional: Reports: as per HPI. Denies: fever, chills Respiratory: Reports: dyspnea, wheezes Cardiovascular: Denies: chest pain Gastrointestinal: Denies: abdominal pain, nausea, vomiting Genitourinary: Denies: urgency, dysuria Musculoskeletal: Denies: back pain Skin: Denies: rash, lesions Neurological: Denies: headache, weakness Past Medical History Past Medical History: Atrial Fibrillation, COPD, Hypertension Additional Past Medical History / Comment(s): recently diagnosed with AFIB [id number] History of Any Multi-Drug Resistant Organisms: None Reported Past Surgical History: No Surgical Hx Reported Past Anesthesia/Blood Transfusion Reactions: No Reported Reaction Past Psychological History: No Psychological Hx Reported Smoking Status: Former smoker Past Alcohol Use History: None Reported Past Drug Use History: None Reported General Exam Limitations: no limitations General appearance: alert Head exam: Present: atraumatic, normocephalic Eye exam: Present: normal appearance Neck exam: Present: normal inspection Respiratory exam: Present: wheezes. Absent: rales, rhonchi, stridor Cardiovascular Exam: Present: irregular rhythm GI/Abdominal exam: Present: soft. Absent: distended, tenderness, guarding, rebound Extremities exam: Present: normal inspection Neurological exam: Present: alert, oriented X3 Psychiatric exam: Present: normal affect Skin exam: Present: warm, dry, intact, normal color Course Vital Signs 07/09/24 07/09/24 07/09/24 07:12 07:20 08:05 Temperature 98.6 F Pulse Rate 77 56 L Respiratory 16 20 Rate Blood Pressure 129/86 O2 Sat by Pulse 100 Oximetry 07/09/24 07/09/24 08:18 08:20 Temperature Pulse Rate 71 64 Respiratory 16 Rate Blood Pressure 114/87 O2 Sat by Pulse 98 Oximetry Medical Decision Making - Medical Decision Making Was pt. sent in by a medical professional or institution (, PA, CLIENT EVALUATOR, urgent care, hospital, or senior living...) When possible be specific @ -He has transferred from [facility] Did you speak to anyone other than the patient for history (EMS, parent, family, police, friend...)? What history was obtained from this source @ -No Did you review nursing and triage notes (agree or disagree)? Why? @ -I reviewed and agree with nursing and triage notes Were old charts reviewed (outside hosp., previous admission, EMS record, old EKG , old radiological studies, urgent care reports/EKG's, senior living records)? Report findings @ -Outside hospital records were reviewed including labs and imaging. Labs significant for ANNMARIE BUN 47 and creatinine 2.8. Differential Diagnosis? @ -Differential Dyspnea: Coronary syndrome, arrhythmia, tamponade, asthma, COPD, pulmonary embolism, pneumonia, pneumothorax, pulmonary effusion, anaphylaxis, diabetic ketoacidosis, flailed chest, pulmonary contusion, diaphragmatic rupture, anemia, neuromuscular, this is not meant to be an all-inclusive list. EKG interpreted by me (3pts min.). @ -EKG interpreted by me shows ventricular rate of 98 bpm, irregular rhythm, QRS of 121, QTc of 420, no ST wave changes suggestive of ischemia. X-rays interpreted by me (1pt min.). @ -X-ray interpreted by me does not appear to have hyperinflation or consolidation suggestive of pneumonia. There appears to be some cardiomegaly which is stable from prior study. CT interpreted by me (1pt min.). @ -None none U/S interpreted by me (1pt. min.). @ -None done What testing was considered but not performed or refused? (CT, X-rays, U/S, labs)? Why? @ -None What meds were considered but not given or refused? Why? @ -None Did you discuss the management of the patient with other professionals (professionals i.e. , PA, CLIENT EVALUATOR, lab, RT, psych nurse, social worker psychiatric, environmental science professor, teacher, agricultural extension officer, briefcase sewer)? Give summary @ -Case was discussed with ED attending physician Dr. Peterson. Case was discussed with [facility] hospitalist Dr. Teague and patient will be admitted to their service. Was smoking cessation discussed for >3mins.? @ -No Was critical care preformed (if so, how long)? @ -No Were there social determinants of health that impacted care today? How? (Homelessness, low income, unemployed, alcoholism, drug addiction, transportation, low edu. Level, literacy, decrease access to med. care, correction, rehab)? @ -No Was there de-escalation of care discussed even if they declined (Discuss DNR or withdrawal of care, Hospice)? DNR status @ -No What co-morbidities impacted this encounter? (DM, HTN, Smoking, COPD, CAD, Cancer, CVA, ARF, Chemo, Hep., AIDS, mental health diagnosis, sleep apnea, morbid obesity)? @ -Hypertension, COPD, A-fib Was patient admitted / discharged? Hospital course, mention meds given and route, prescriptions, significant lab abnormalities, going to OR and other pertinent info. @ -Patient will be admitted to inpatient service for COPD exacerbation and ANNMARIE. Undiagnosed new problem with uncertain prognosis? @ -No Drug Therapy requiring intensive monitoring for toxicity (Heparin, Nitro, Insulin, Cardizem)? @ -No Were any procedures done? @ -No Diagnosis/symptom? @ -Shortness of breath, COPD exacerbation, ANNMARIE Acute, or Chronic, or Acute on Chronic? @ -Acute on chronic Uncomplicated (without systemic symptoms) or Complicated (systemic symptoms)? @ -Default Side effects of treatment? @ -No Exacerbation, Progression, or Severe Exacerbation? @ -Exacerbation Poses a threat to life or bodily function? How? (Chest pain, [place], [place], pneumonia, PE, COPD, DKA, ARF, appy, cholecystitis, CVA, Diverticulitis, Homicidal, Suicidal, threat to staff... and all critical care pts) @ -COPD - Lab Data Lab Results 07/09/24 07/09/24 Range/Units 08:16 08:16 PT 11.0 (10.0-12.5) sec INR 1.0 (<1.2) APTT 24.9 (22.0-30.0) sec NT-Pro-B Natriuret Pep 977 pg/mL Disposition Clinical Impression: COPD (chronic obstructive pulmonary disease) Disposition: ADMITTED IP TO THIS HOSP Referrals: Christiano Tinsley MD [Primary Care Provider] - 1-2 days Time of Disposition: 07:50 Decision Date: 07/09/24 Decision Time: 07:45
[2024-07-09] MEDS ORDERED: NALOXONE 0.4 MG/ML 1 ML VIAL IV PRN (08:16)
[2024-07-09] MEDS ORDERED: ACETAMINOPHEN TAB 325 MG TAB PO PRN (08:16)
[2024-07-09] MEDS: predniSONE 20 MG TAB PO STA (08:17)
[2024-07-09] MEDS: SODIUM CHLORIDE 0.9% 1,000 ML IV SCH (08:19)
[2024-07-09 08:35] LABS: Partial Thromboplastin Time 24.9 sec (22.0-30.0)
--- NOTE | 2024-07-09 08:48 | XR ---
EXAMINATION TYPE: XR chest 2V DATE OF EXAM: 07/09/2024 8:37 AM COMPARISON: 05/22/2024 CLINICAL INDICATION: Male, 63 years old with history of difficulty breathing, TECHNIQUE: XR chest 2V view(s) obtained. FINDINGS: The heart size is normal. The pulmonary vasculature is normal. The lungs are clear. IMPRESSION: 1. No acute pulmonary process. [facility], , 07/09/2024 8:46 AM
[2024-07-09 12:07] LABS: Appearance,Urine Clear (Clear); Bilirubin,Urine Negative (Negative); Blood,Urine Negative (Negative); Color,Urine Colorless; Glucose,Urine (UA) 4+ (Negative); Ketones,Urine Negative (Negative); Leukocyte Esterase,Urine Negative (Negative); Nitrite,Urine Negative (Negative); Protein,Urine Negative (Negative); Specific Gravity,Urine 1.009 (1.001-1.035); Urobilinogen,Urine <2.0 mg/dL (<2.0)
--- NOTE | 2024-07-09 12:28 | P.NPCON ---
History of Present Illness - Reason for Consult acute renal failure - History of Present Illness Reason for consultation: Acute kidney injury History of present illness: Patient is a 63-year-old male seen in renal consultation for acute kidney injury. Patient was seen and examined in the emergency room. Unknown baseline renal function. Patient initially presented to [facility] due to shortness of breath. Patient states he went to the hospital due to worsening shortness of breath. Patient states he has had 2 other hospital admissions in the last 2 months with similar complaints. Patient was told that he had a JUAN done which showed atrial thrombus and was put on multiple meds. He is unsure of the name of the meds. I do see Pat on his home medication list. He has been voiding. Denies gross hematuria or dysuria. He does admit to taking Motrin 800s about 3 times a week for pain. He denies history of diabetes. Denies history of coronary artery disease. Patient states oral intake has been good. He did have some episodes of vomiting but none now. No diarrhea. Denies personal history of kidney disease. Patient's creatinine was near 1 from June 2024 and was noted to be 2.8 at [facility] yesterday. Vital signs are stable. General: No acute distress. HEENT: Head exam is unremarkable. LUNGS: No audible rhonchi or wheezes. HEART: Rate and Rhythm are regular. ABDOMEN: Nontender. EXTREMITITES: No edema. Past Medical History Past Medical History: Atrial Fibrillation, COPD, Hypertension Additional Past Medical History / Comment(s): recently diagnosed with AFIB [id number] History of Any Multi-Drug Resistant Organisms: None Reported Past Surgical History: No Surgical Hx Reported Past Anesthesia/Blood Transfusion Reactions: No Reported Reaction Past Psychological History: No Psychological Hx Reported Smoking Status: Former smoker Past Alcohol Use History: None Reported Past Drug Use History: None Reported Medications and Allergies Home Medications Medication Instructions Recorded Confirmed Type Albuterol Nebulized [Ventolin 2.5 mg INHALATION RT-QID 05/21/24 07/09/24 History Nebulized] Albuterol Sulfate [Ventolin HFA] 2 puff INHALATION RT-Q4H PRN 05/21/24 07/09/24 History Fluticasone Nasal [place] [Flonase 2 spr EA NOSTRIL DAILY 05/21/24 07/09/24 History Nasal [place]] Fluticasone Propion/Salmeterol 1 puff INHALATION RT-BID 05/21/24 07/09/24 History [Advair 500-50 Diskus] Fluticasone/Umeclidin/Vilanter 1 puff INHALATION RT-DAILY 05/21/24 07/09/24 History [Trelegy Ellipta 200-62.5-25] guaiFENesin [Mucinex] 1,200 mg PO BID PRN 05/21/24 07/09/24 History Apixaban [Eliquis] 5 mg PO BID #60 tab 05/24/24 07/09/24 Rx Ipratropium-Albuterol Nebulize 3 ml INHALATION RT-Q4H PRN each 05/24/24 07/09/24 Rx [Duoneb 0.5 mg-3 mg/3 ml Soln] Ipratropium-Albuterol Nebulize 3 ml INHALATION RT-QID #100 each 05/24/24 07/09/24 Rx [Duoneb 0.5 mg-3 mg/3 ml Soln] Tiotropium [place] [Spiriva 1 puff INHALATION RT-DAILY 06/11/24 07/09/24 History Handihaler] Atorvastatin [Lipitor] 40 mg PO HS #30 tab 06/14/24 07/09/24 Rx Dapagliflozin Propanediol [Farxiga] 10 mg PO DAILY #30 tab 06/14/24 07/09/24 Rx Losartan [Cozaar] 12.5 mg PO DAILY #30 tab 06/14/24 07/09/24 Rx Metoprolol Tartrate [Lopressor] 100 mg PO BID #120 tab 06/14/24 07/09/24 Rx Spironolactone [Aldactone] 25 mg PO DAILY #30 tab 06/14/24 07/09/24 Rx Torsemide [Demadex] 10 mg PO DAILY #30 tab 06/14/24 07/09/24 Rx Amiodarone [Cordarone] 200 mg PO DAILY 07/09/24 07/09/24 History Budesonide [Pulmicort] 1 mg INHALATION RT-BID 07/09/24 07/09/24 History Allergies Allergy/AdvReac Type Severity Reaction Status Date / Time No Known Allergies Allergy Verified 07/09/24 10:42 Physical Exam Vitals: Vital Signs Temp Pulse Resp BP Pulse Ox 07/09/24 12:04 60 07/09/24 08:20 64 07/09/24 08:18 98.7 F 71 16 114/87 98 07/09/24 08:05 56 L 07/09/24 07:20 20 07/09/24 07:12 98.6 F 77 16 129/86 100 Intake and Output 07/08/24 07/09/24 07/09/24 22:59 06:59 14:59 Other: Weight 108.862 kg Assessment and Plan Plan: Assessment: 1. Acute kidney injury secondary to ATN secondary to hypovolemia, NSAIDs and further worsened with the use of diuretics, Cozaar. Creatinine 2.8. Baseline creatinine near 1 from June 2024. UA benign. 2. Atrial thrombus maintained on anticoagulation. 3. History of A-fib. 4. Chronic systolic CHF ejection fraction of 40% with mild to moderate mitral regurgitation. 5. Metabolic acidosis secondary to acute kidney injury. Plan: Maintain IV fluids. Continue to hold diuretics and antihypertensives. Check renal ultrasound. Check bladder scan to rule out urinary retention. Avoid nephrotoxins. Continue to monitor renal function and urine output. Thank you for the consultation. I will continue to follow the patient with you during his hospital stay.
--- NOTE | 2024-07-09 13:56 | US ---
EXAMINATION TYPE: US kidneys/renal and bladder DATE OF EXAM: 07/09/2024 COMPARISON: NONE CLINICAL INDICATION: Male, 63 years old with history of beka; Hx HTN; Patient denies any other signs, symptoms, or relevant history TECHNIQUE: Grayscale imaging of the bilateral kidneys and urinary bladder: FINDINGS: EXAM MEASUREMENTS: Right Kidney: 11.0 x 5.9 x 5.2 cm Left Kidney: 11.8 x 6.2 x 5.3 cm Post Void Residual Volume: NA mL Incidental - heterogenous liver Right Kidney: wnl, no evidence for hydronephrosis, mass or renal calculus. Left Kidney: wnl, no evidence for hydronephrosis, mass or renal calculus. Bladder: wnl Bilateral Jets seen: Yes Normal Post Void Residual: NA There is no evidence for hydronephrosis at this point in time. No nephrolithiasis is seen. No mello s are identified. The urinary bladder is anechoic. IMPRESSION: 1. No suspicious acute renal ultrasound abnormality. [facility], , 07/09/2024 1:54 PM
[2024-07-09] MEDS ORDERED: guaiFENesin 600 MG TABLET.ER PO PRN (14:34)
[2024-07-09] MEDS ORDERED: HYDROmorphone 0.5 MG/0.5 ML SYRINGE IVP PRN (14:35)
[2024-07-09] MEDS ORDERED: HYDROcodone/APAP 5-325MG 1 EACH TAB PO PRN (14:35)
[2024-07-09] MEDS ORDERED: ALPRAZolam 0.25 MG TAB PO PRN (14:35)
[2024-07-09] MEDS ORDERED: DEXTROSE 50% SYRINGE 50 ML IVP PRN ×2 (14:36)
[2024-07-09 15:08] LABS: Basophils % (A) 0 %; Eosinophils % (A) 0 %; HCT 49.8 % (39.0-53.0); HGB 16.1 gm/dL (13.0-17.5); Lymphocytes # (A) 0.6 k/uL (1.0-4.8); Lymphocytes % (A) 5 %; MCH 33.4 pg (25.0-35.0); MCHC 32.4 g/dL (31.0-37.0); MCV 103.1 fL (80.0-100.0); Macrocytosis Slight; Mean Platelet Volume 7.7; Monocytes # (A) 0.2 k/uL (0-1.0); Monocytes % (A) 2 %; Neutrophils # (A) 10.7 k/uL (1.3-7.7); Neutrophils % (A) 92 %; Platelet Count 395 k/uL (150-450); RBC 4.83 m/uL (4.30-5.90); RDW 14.8 % (11.5-15.5); WBC 11.6 k/uL (3.8-10.6)
[2024-07-09 15:19] LABS: AST 46 U/L (17-59); African American GFR (CKD) 34 (>60 ml/min/1.73 sqM); Albumin 4.7 g/dL (3.5-5.0); Albumin/Globulin Ratio 1.7; Alkaline Phosphatase 98 U/L (38-126); Anion Gap 15 mmol/L; Blood Urea Nitrogen 47 mg/dL (9-20); Calcium 9.8 mg/dL (8.4-10.2); Carbon Dioxide 17 mmol/L (22-30); Chloride 93 mmol/L (98-107); Globulin 2.7 g/dL; Glucose 377 mg/dL (74-99); Non-African American GFR(CKD) 30 (>60 ml/min/1.73 sqM); Potassium 5.1 mmol/L (3.5-5.1); Sodium 125 mmol/L (137-145); Total Bilirubin 0.6 mg/dL (0.2-1.3); Total Protein 7.4 g/dL (6.3-8.2)
[2024-07-09] MEDS: methylPREDNISolone SOD SUCCI 125 MG/2 ML VIAL IV SCH (15:26)
[2024-07-09 15:52] LABS: ALT 81 U/L (4-49)
[2024-07-09] MEDS: BUDESONIDE 1 MG/2 ML NEBU INHALATION SCH (16:07)
[2024-07-09 16:16] LABS: Glucose,Whole Blood 365 mg/dL (70-110)
[2024-07-09] MEDS: IPRATROPIUM-ALBUTEROL 3 ML NEB INHALATION SCH (16:18)
[2024-07-09] MEDS: INSULIN LISPRO (HumaLOG) 100 UNIT/ML 10 mL VL SQ SCH (17:01)
[2024-07-09] MEDS: TORSEMIDE 20 MG TAB PO SCH (17:02)
[2024-07-09] MEDS: METOPROLOL TARTRATE 50 MG TAB PO SCH (19:29)
[2024-07-09] MEDS: SYMBICORT 160-4.5 MCG INHALER INHALATION SCH (19:34)
[2024-07-09 21:02] LABS: Glucose,Whole Blood 313 mg/dL (70-110)
[2024-07-09] MEDS: ATORVASTATIN 40 MG TAB PO SCH (21:14)
--- NOTE | 2024-07-09 22:14 | HP ---
HISTORY AND PHYSICAL CHIEF COMPLAINT: Shortness of breath. HISTORY OF PRESENT ILLNESS: This is a 63-year-old gentleman with a past medical history of multiple medical problems, who recently had complicated medical issues. The patient had shortness of breath. The patient also had atrial fibrillation, COPD, hypertension, and hyperlipidemia. The patient went to [place]. The patient is followed by Dr. Christiano Tinsley in the outpatient setting. The patient also had a flu recently apparently. The patient is also being referred for nephrology evaluation also. There is no history of any fever, rigors, or chills at this time. PAST MEDICAL HISTORY: Reviewed and includes atrial fibrillation and COPD. Rest of the history and rest of the chart is also reviewed. HOME MEDICATIONS: Reviewed and include Mucinex. Dose and rest of medications reviewed. ALLERGIES: None. FAMILY HISTORY: No history of heart disease or strokes in the family. SOCIAL HISTORY: Previous history of smoking. REVIEW OF SYSTEMS: Fourteen-point review of systems negative except as mentioned earlier. PHYSICAL EXAMINATION: VITAL SIGNS: Pulse is 60, blood pressure 134/62, respirations 18. HEENT: Conjunctivae normal. NECK: No JVD. CARDIOVASCULAR: S1, S2. RESPIRATIONS: Breath sounds diminished at the bases. Bilaterally scattered rhonchi and crackles. ABDOMEN: Soft, nontender. LEGS: No edema. NERVOUS SYSTEM: Nonfocal. LABORATORY DATA: Reviewed. ASSESSMENT: 1. Chronic obstructive pulmonary disease with acute exacerbation. 2. Rule out renal failure. 3. JUAN is showing atrial thrombus, managed by Eliquis. 4. Atrial fibrillation. 5. Hypertension. 6. Hyperlipidemia. 7. Multiple complex medical issues. RECOMMENDATIONS: This is a 63-year-old gentleman, who presented with multiple complex medical issues. We will monitor the patient closely. Continue the current medications, continue with symptomatic treatment. Otherwise, I would recommend repeat labs, and Nephrology has been consulted. Resume the home medications. Avoid nephrotoxic medications. I would also recommend Pulmonology and Cardiology evaluation also for continued followup as well. Once again, the prognosis is guarded. Further recommendations to follow. MMODL / IJN: [id number] /
--- NOTE | 2024-07-10 00:23 | P.CRDCN ---
History of Present Illness Consult date: 07/09/24 History of present illness: HISTORY OF PRESENTING ILLNESS: 63-year-old with past medical history of persistent atrial fibrillation, cardiomyopathy with a EF of 40 to 45%, dyspnea on exertion, ex-tobacco smoker, obesity, suspected obstructive sleep apnea and COPD. He was hospitalized in May and then in June with atrial fibrillation with RVR with symptoms of palpitation and shortness of breath. Patient was adamant that he needs a heart catheterization because of his symptoms however both that time we noticed that he was in mild congestive heart failure exacerbation because of his cardiomyopathy and atrial fibrillation with RVR. In June 2024 JUAN cardiover cierra was attempted however on JUAN it was noticed that patient has a left atrial appendage thrombus therefore cardioversion was not performed. He was discharged home on optimize his guideline recommended medical therapy and was instructed to follow-up on outpatient basis for a stress test however patient never followed up in the office. This time patient presented to [facility] with similar symptoms of substernal chest pressure and shortness of breath. On admission basic labs showed evidence of ANNMARIE. On last discharge he was discharged on GDMT with torsemide 10, Farxiga 10, losartan 12.5 mg daily, metoprolol 100 mg twice daily, amiodarone 200 mg Admission EKG shows atrial fibrillation with controlled heart rate 98 bpm, moderate interventricular conduction delay Admission labs showed hyponatremia sodium 125, potassium 5.1, BUN 47, creatinine 2.3 REVIEW OF SYSTEMS: 14 point review of system is negative except what is mentioned above in HPI. PHYSICAL EXAMINATION: Neck: Brisk carotid upstroke, no jugular venous distention. Lungs: Clear to auscultation. Heart: Irregularly irregular pulse, S1-S2, , no murmur or rub. Abdomen: Soft nontender, positive bowel sounds. Extremities: No edema, intact distal pulses. Neuro: Alert, oritented, no focal deficits. Detailed neuro exam was not performed. ASSESSMENT: # ANNMARIE # Dyspnea on exertion # Substernal chest pressure # Persistent atrial fibrillation # Cardiomyopathy with a EF of 40 to 45% # Obesity # Type 2 diabetes, A1c 7.3, # Low TSH with normal T4, TSH 0.19 # Medication and medical recommendation noncompliance # Obesity # Suspected PRAMOD # Hearing imparement PLAN: Continue aspirin, IV heparin drip, metoprolol Continue amiodarone 200 mg daily, metoprolol 100 mg twice daily Hold losartan, Farxiga, torsemide Gentle IV hydration, nephrology consult If kidney function improves back to baseline, consider heart catheterization on Thursday for cardiomyopathy evaluation. Patient has high chances of readmissions because of previous noncompliance to medication and medical recommendations. Vega Grady MD, FAC, RPVI Thank you for allowing [facility] to participate in this patient's care. Feel free to reach out in case of any followup questions. Past Medical History Past Medical History: Atrial Fibrillation, COPD, Hyperlipidemia, Hypertension, Osteoarthritis (OA) Additional Past Medical History / Comment(s): recently diagnosed with AFIB feary 2024, degenerative disc disease, sinus problems History of Any Multi-Drug Resistant Organisms: None Reported Past Surgical History: Heart Catheterization Additional Past Surgical History / Comment(s): thumb operated on/secondary to infection, sinus surgery-then developed infection there. Past Anesthesia/Blood Transfusion Reactions: No Reported Reaction Past Psychological History: No Psychological Hx Reported Smoking Status: Former smoker Past Alcohol Use History: None Reported Past Drug Use History: None Reported Medications and Allergies Home Medications Medication Instructions Recorded Confirmed Type Albuterol Nebulized [Ventolin 2.5 mg INHALATION RT-QID 05/21/24 07/09/24 History Nebulized] Albuterol Sulfate [Ventolin HFA] 2 puff INHALATION RT-Q4H PRN 05/21/24 07/09/24 History Fluticasone Nasal [place] [Flonase 2 spr EA NOSTRIL DAILY 05/21/24 07/09/24 History Nasal [place]] Fluticasone Propion/Salmeterol 1 puff INHALATION RT-BID 05/21/24 07/09/24 History [Advair 500-50 Diskus] Fluticasone/Umeclidin/Vilanter 1 puff INHALATION RT-DAILY 05/21/24 07/09/24 History [Trelegy Ellipta 200-62.5-25] guaiFENesin [Mucinex] 1,200 mg PO BID PRN 05/21/24 07/09/24 History Apixaban [Eliquis] 5 mg PO BID #60 tab 05/24/24 07/09/24 Rx Ipratropium-Albuterol Nebulize 3 ml INHALATION RT-Q4H PRN each 05/24/24 07/09/24 Rx [Duoneb 0.5 mg-3 mg/3 ml Soln] Ipratropium-Albuterol Nebulize 3 ml INHALATION RT-QID #100 each 05/24/24 07/09/24 Rx [Duoneb 0.5 mg-3 mg/3 ml Soln] Tiotropium [place] [Spiriva 1 puff INHALATION RT-DAILY 06/11/24 07/09/24 History Handihaler] Atorvastatin [Lipitor] 40 mg PO HS #30 tab 06/14/24 07/09/24 Rx Dapagliflozin Propanediol [Farxiga] 10 mg PO DAILY #30 tab 06/14/24 07/09/24 Rx Losartan [Cozaar] 12.5 mg PO DAILY #30 tab 06/14/24 07/09/24 Rx Metoprolol Tartrate [Lopressor] 100 mg PO BID #120 tab 06/14/24 07/09/24 Rx Spironolactone [Aldactone] 25 mg PO DAILY #30 tab 06/14/24 07/09/24 Rx Torsemide [Demadex] 10 mg PO DAILY #30 tab 06/14/24 07/09/24 Rx Amiodarone [Cordarone] 200 mg PO DAILY 07/09/24 07/09/24 History Budesonide [Pulmicort] 1 mg INHALATION RT-BID 07/09/24 07/09/24 History Allergies Allergy/AdvReac Type Severity Reaction Status Date / Time No Known Allergies Allergy Verified 07/09/24 10:42 Physical Exam Vitals: Vital Signs Temp Pulse Pulse Resp BP BP Pulse Ox 07/09/24 19:43 69 07/09/24 19:35 66 07/09/24 19:05 97.9 F 83 16 149/80 97 07/09/24 16:30 65 07/09/24 16:21 96 07/09/24 16:20 63 07/09/24 13:20 97.6 F 60 18 134/62 98 07/09/24 12:54 98.7 F 77 16 143/92 98 07/09/24 12:20 60 07/09/24 12:04 60 07/09/24 08:20 64 07/09/24 08:18 98.7 F 71 16 114/87 98 07/09/24 08:05 56 L 07/09/24 07:20 20 07/09/24 07:12 98.6 F 77 16 129/86 100 Intake and Output 07/09/24 07/09/24 07/10/24 14:59 22:59 06:59 Output Total 1850 Balance -1850 Output: Urine 1850 Other: Voiding Method Urinal Weight 108.862 kg Results 07/09/24 14:49 07/09/24 14:49 Cardiac Enzymes 07/09/24 Range/Units 14:49 AST 46 (17-59) U/L Coagulation 07/09/24 Range/Units 08:16 PT 11.0 (10.0-12.5) sec APTT 24.9 (22.0-30.0) sec CBC 07/09/24 Range/Units 14:49 WBC 11.6 H (3.8-10.6) k/uL RBC 4.83 (4.30-5.90) m/uL Hgb 16.1 (13.0-17.5) gm/dL Hct 49.8 (39.0-53.0) % Plt Count 395 (150-450) k/uL Comprehensive Metabolic Panel 07/09/24 Range/Units 14:49 Sodium 125 L (137-145) mmol/L Potassium 5.1 (3.5-5.1) mmol/L Chloride 93 L (98-107) mmol/L Carbon Dioxide 17 L (22-30) mmol/L BUN 47 H (9-20) mg/dL Creatinine 2.30 H (0.66-1.25) mg/dL Glucose 377 H (74-99) mg/dL Calcium 9.8 (8.4-10.2) mg/dL AST 46 (17-59) U/L ALT 81 H (4-49) U/L Alkaline Phosphatase 98 (38-126) U/L Total Protein 7.4 (6.3-8.2) g/dL Albumin 4.7 (3.5-5.0) g/dL Current Medications Generic Name Dose Route Start Last Admin Trade Name Freq PRN Reason Stop Dose Admin Acetaminophen 650 mg 07/09/24 08:16 Acetaminophen Tab 325 Mg Tab PO Q6HR PRN Mild Pain or Fever > 100.5 Hydrocodone Bitart/Acetaminophen 1 each 07/09/24 14:35 Hydrocodone/Apap 5-325mg 1 Each Tab PO Q6HR PRN Pain 4-6 Albuterol/Ipratropium 3 ml 07/09/24 16:00 07/09/24 19:34 Ipratropium-Albuterol 3 Ml Neb INHALATION 3 ml RT-Q4H ROSALBA Administration Alprazolam 0.25 mg 07/09/24 14:35 Alprazolam 0.25 Mg Tab PO TID PRN Anxiety Amiodarone HCl 200 mg 07/10/24 09:00 Amiodarone 200 Mg Tab PO DAILY ROSALBA Aspirin 81 mg 07/10/24 09:00 Aspirin 81 Mg PO DAILY ROSALBA Atorvastatin Calcium 40 mg 07/09/24 21:00 07/09/24 21:14 Atorvastatin 40 Mg Tab PO 40 mg HS ROSALBA Administration Budesonide/Formoterol Fumarate 2 puff 07/09/24 20:00 07/09/24 19:43 Symbicort 160-4.5 Mcg Inhaler INHALATION Not Given RT-BID ROSALBA Dextrose/Water 25 ml 07/09/24 14:36 Dextrose 50% Syringe 50 Ml IVP PER PROTOCOL PRN Hypoglycemia Protocol Dextrose/Water 50 ml 07/09/24 14:36 Dextrose 50% Syringe 50 Ml IVP PER PROTOCOL PRN Hypoglycemia Protocol Fluticasone Propionate 2 spray 07/10/24 09:00 Fluticasone Nasal 50mcg/[place] 16gm Btl EA NOSTRIL DAILY [facility] Guaifenesin 1,200 mg 07/09/24 14:34 Guaifenesin 600 Mg Tablet.Er PO BID PRN Congestion Heparin Sodium (Porcine) 4,000 unit 07/10/24 00:14 Heparin Sodium 1,000 Un/Ml (10ml Vl) IV 07/10/24 00:15 ONCE ONE Heparin Sodium (Porcine) 0 unit 07/10/24 00:14 Heparin Sodium 1,000 Un/Ml (10ml Vl) IV PER PROTOCOL PRN Low PTT Protocol Hydromorphone HCl 0.5 mg 07/09/24 14:35 Hydromorphone 0.5 Mg/0.5 Ml Syringe IVP Q6HR PRN Severe Pain (Scale 7 to 10) Sodium Chloride 1,000 mls @ 80 mls/hr 07/09/24 08:15 07/09/24 21:14 Saline 0.9% IV 80 mls/hr .[id number] ROSALBA Administration Heparin Sodium/Sodium Chloride 250 mls @ 13.063 mls/hr 07/10/24 00:15 25,000 unit/ Sodium Chloride IV .Q19H9M [facility] Protocol 12 UNITS/KG/HR Insulin Human Lispro 0 unit 07/09/24 17:30 07/09/24 21:14 Insulin Lispro (Humalog) 100 Unit/Ml 10 Ml Vl SQ 4 unit ACHS ROSALBA Administration Protocol Methylprednisolone Sodium Succinate 60 mg 07/09/24 15:00 07/09/24 21:15 Methylprednisolone Sod Succi 125 Mg/2 Ml Vial IV 60 mg Q6H ROSALBA Administration Metoprolol Tartrate 100 mg 07/09/24 21:00 07/09/24 19:29 Metoprolol Tartrate 50 Mg Tab PO 100 mg BID ROSALBA Administration Naloxone HCl 0.2 mg 07/09/24 08:16 Naloxone 0.4 Mg/Ml 1 Ml Vial IV Q2M PRN Opioid Reversal Pantoprazole Sodium 40 mg 07/10/24 07:30 Pantoprazole 40 Mg Tablet PO AC-BRKFST [facility] Intake and Output 07/09/24 07/09/24 07/10/24 14:59 22:59 06:59 Output Total 1850 Balance -1850 Output: Urine 1850 Other: Voiding Method Urinal Weight 108.862 kg Patient Weight 07/10/24 06:59 Weight 108.862 kg 07/09/24 14:49 07/09/24 14:49
[2024-07-10 00:53] LABS: Basophils % (A) 0 %; Eosinophils % (A) 0 %; HGB 15.8 gm/dL (13.0-17.5); Lymphocytes # (A) 0.6 k/uL (1.0-4.8); Lymphocytes % (A) 4 %; MCH 33.9 pg (25.0-35.0); MCV 102.8 fL (80.0-100.0); Macrocytosis Slight; Mean Platelet Volume 7.5; Monocytes # (A) 0.5 k/uL (0-1.0); Monocytes % (A) 4 %; Neutrophils # (A) 13.4 k/uL (1.3-7.7); Neutrophils % (A) 92 %; Platelet Count 349 k/uL (150-450); RBC 4.67 m/uL (4.30-5.90); RDW 14.8 % (11.5-15.5); WBC 14.6 k/uL (3.8-10.6)
[2024-07-10 01:29] LABS: INR 0.9 (<1.2); Partial Thromboplastin Time 22.1 sec (22.0-30.0); Prothrombin Time 10.6 sec (10.0-12.5)
[2024-07-10] MEDS: HEPARIN SODIUM 1,000 UN/ML (10ML VL) IV ONE (01:59)
[2024-07-10] MEDS: HEPARIN SOD,PORK IN 0.45% NACL 25,000 UNIT in 0.45% NACL 1 250ML.BAG IV SCH (02:00)
[2024-07-10 06:29] LABS: Glucose,Whole Blood 237 mg/dL (70-110)
[2024-07-10] MEDS: PANTOPRAZOLE 40 MG TABLET PO SCH (06:35)
[2024-07-10 08:04] LABS: Basophils % (A) 0 %; Eosinophils % (A) 0 %; HCT 54.2 % (39.0-53.0); HGB 17.2 gm/dL (13.0-17.5); Lymphocytes # (A) 0.6 k/uL (1.0-4.8); Lymphocytes % (A) 3 %; MCH 33.2 pg (25.0-35.0); MCHC 31.8 g/dL (31.0-37.0); MCV 104.4 fL (80.0-100.0); Macrocytosis Moderate; Mean Platelet Volume 8.3; Monocytes # (A) 0.4 k/uL (0-1.0); Monocytes % (A) 2 %; Neutrophils # (A) 16.5 k/uL (1.3-7.7); Neutrophils % (A) 94 %; Platelet Count 375 k/uL (150-450); RBC 5.19 m/uL (4.30-5.90); RDW 14.6 % (11.5-15.5); WBC 17.6 k/uL (3.8-10.6)
[2024-07-10] MEDS: HEPARIN SODIUM 1,000 UN/ML (10ML VL) IV PRN (08:11)
[2024-07-10 08:13] LABS: African American GFR (CKD) 47 (>60 ml/min/1.73 sqM); Anion Gap 10 mmol/L; Blood Urea Nitrogen 46 mg/dL (9-20); Calcium 9.5 mg/dL (8.4-10.2); Carbon Dioxide 24 mmol/L (22-30); Chloride 98 mmol/L (98-107); Glucose 240 mg/dL (74-99); Non-African American GFR(CKD) 40 (>60 ml/min/1.73 sqM); Potassium 4.5 mmol/L (3.5-5.1); Sodium 132 mmol/L (137-145)
[2024-07-10] MEDS: AMIODARONE 200 MG TAB PO SCH (08:15)
[2024-07-10] MEDS: ASPIRIN 81 MG PO SCH (08:15)
[2024-07-10] MEDS ORDERED: DAPAGLIFLOZIN PROPANEDIOL 10 MG TABLET PO SCH (09:00)
[2024-07-10] MEDS ORDERED: LOSARTAN 25 MG TAB PO SCH (09:00)
--- NOTE | 2024-07-10 10:56 | P.PN ---
Subjective Patient is seen in follow-up for acute kidney injury. Renal function improving. On IV fluids. Admits to good urine output. Vital signs are stable. General: No acute distress. HEENT: Head exam is unremarkable. LUNGS: No audible rhonchi or wheezes. HEART: Rate and Rhythm are regular. ABDOMEN: Nontender. EXTREMITITES: No edema. Objective - Vital Signs Vital signs: Vital Signs Temp 97.6 F 07/10/24 07:29 Pulse 66 07/10/24 08:49 Resp 18 07/10/24 07:29 BP 132/88 07/10/24 07:29 Pulse Ox 94 L 07/10/24 07:29 FiO2 Intake & Output 07/09/24 07/10/24 07/10/24 18:59 06:59 18:59 Intake Total 500 61.191 Output Total 1250 3150 Balance -1250 -2650 61.191 Weight 108.862 kg Intake: Intake, IV Titration 61.191 Amount Heparin Sod,Pork in 0.45% 61.191 NaCl 25,000 unit In 0.45 % NaCl 1 250ml.bag @ 9.19 UNITS/KG/HR 10.004 mls/ hr IV .Q24H [facility] Rx#: [id number] Oral 500 Output: Urine 1250 3150 Other: Voiding Method Urinal - Labs CBC & Chem 7: 07/10/24 07:12 07/10/24 07:12 Labs: Abnormal Lab Results - Last 24 Hours (Table) 07/09/24 07/09/24 07/09/24 Range/Units 11:55 14:49 14:49 WBC 11.6 H (3.8-10.6) k/uL Hct (39.0-53.0) % MCV 103.1 H (80.0-100.0) fL Neutrophils # 10.7 H (1.3-7.7) k/uL Lymphocytes # 0.6 L (1.0-4.8) k/uL Sodium 125 L (137-145) mmol/L Chloride 93 L (98-107) mmol/L Carbon Dioxide 17 L (22-30) mmol/L BUN 47 H (9-20) mg/dL Creatinine 2.30 H (0.66-1.25) mg/dL Glucose 377 H (74-99) mg/dL POC Glucose (mg/dL) (70-110) mg/dL ALT 81 H (4-49) U/L Urine Glucose (UA) 4+ H (Negative) 07/09/24 07/09/24 07/10/24 Range/Units 16:13 21:01 00:37 WBC 14.6 H (3.8-10.6) k/uL Hct (39.0-53.0) % MCV 102.8 H (80.0-100.0) fL Neutrophils # 13.4 H (1.3-7.7) k/uL Lymphocytes # 0.6 L (1.0-4.8) k/uL Sodium (137-145) mmol/L Chloride (98-107) mmol/L Carbon Dioxide (22-30) mmol/L BUN (9-20) mg/dL Creatinine (0.66-1.25) mg/dL Glucose (74-99) mg/dL POC Glucose (mg/dL) 365 H 313 H (70-110) mg/dL ALT (4-49) U/L Urine Glucose (UA) (Negative) 07/10/24 07/10/24 07/10/24 Range/Units 06:26 07:12 07:12 WBC 17.6 H (3.8-10.6) k/uL Hct 54.2 H (39.0-53.0) % MCV 104.4 H (80.0-100.0) fL Neutrophils # 16.5 H (1.3-7.7) k/uL Lymphocytes # 0.6 L (1.0-4.8) k/uL Sodium 132 L (137-145) mmol/L Chloride (98-107) mmol/L Carbon Dioxide (22-30) mmol/L BUN 46 H (9-20) mg/dL Creatinine 1.78 H (0.66-1.25) mg/dL Glucose 240 H (74-99) mg/dL POC Glucose (mg/dL) 237 H (70-110) mg/dL ALT (4-49) U/L Urine Glucose (UA) (Negative) Assessment and Plan Plan: Assessment: 1. Acute kidney injury secondary to ATN secondary to hypovolemia, NSAIDs and further worsened with the use of diuretics, Cozaar. Creatinine 2.8 on admission (at another facility) and is 1.78 today. Baseline creatinine near 1 from June 2024. UA benign. No hydronephrosis noted on kidney ultrasound. 2. Atrial thrombus maintained on anticoagulation. 3. History of A-fib. 4. Chronic systolic CHF ejection fraction of 40% with mild to moderate mitral regurgitation. 5. Metabolic acidosis secondary to acute kidney injury. Improved. Plan: Maintain IV fluids. Continue to hold diuretics and antihypertensives. Avoid nephrotoxins. Continue to monitor renal function and urine output. Cardiac catheterization being considered. Discussed with patient the risk of developing worsening renal failure post IV contrast exposure. He understands. Repeat labs in the morning.
[2024-07-10 11:21] LABS: Glucose,Whole Blood 250 mg/dL (70-110)
--- NOTE | 2024-07-10 11:29 | P.CNPUL ---
History of Present Illness Consult date: 07/10/24 Reason for consult: dyspnea History of present illness: This is a 63-year-old male patient presented emerged part with worsening shortness of breath. The patient has history of COPD and has been hospitalized in the past for acute COPD exacerbation, treated and discharged. He denies smoking. He is also suspected of obstructive sleep apnea based on his anatomic features and weight. Nevertheless, the final diagnosis not been established and sleep study has not been done. He also has CHF with an EF of around 40 to 45% and has atrial fibrillation. During his last admission, the patient was A-fib RVR. JUAN cardioversion was attempted during his last admission. However, he was noted to have a clot in the left atrial appendage and the procedure was not performed. As such, the patient was treated medically. The patient presented to [facility] with some substernal chest pain and increased shortness of breath. He was noted to be in atrial fibrillation. At this point in time, his rate is controlled and his EKG is not showing any acute abnormalities. He has been maintained on a combination of metoprolol 100 mg p.o. twice a day and amiodarone 200 mg p.o. daily and Farxiga and torsemide on outpatient basis. Chest x-ray from this current admission shows no acute abnormalities. On a separate note, the blood work showed an acute kidney injury. The patient has been overutilizing nonsteroidal anti-inflammatory medications and was taking Motrin 800 mg at least 3 times a day. Nephrology's been consulted. He was gi murray IV fluids. Creatinine has dropped from 2.3 down to 1.7 and is producing urine output. Electrolytes are stable. The white cell count today is at 17.6 with a hemoglobin 17.2 and a platelet count of 375. He is currently on DuoNeb He was [id number]. He is on IV heparin. He is on oral amiodarone and metoprolol.. He was also started on IV Solu-Medrol. Nevertheless, his COPD is not quite active and the patient will be started on a prednisone burst taper. He is on IV fluids normal saline at rate of 80 cc an hour. Review of Systems Constitutional: Reports daytime sleepiness, Reports fatigue Eyes: denies as per HPI, denies blurred vision, denies bulging eye, denies decreased vision, denies diplopia, denies discharge, denies dry eye, denies irritation, denies itching, denies pain, denies photophobia, denies loss of peripheral vision, denies loss of vision, denies tunnel vision/blind spots Ears: deny: decreased hearing, ear discharge, earache, tinnitus Ears, nose, mouth and throat: Reports as per HPI Breasts: absent: as per HPI, gynecomastia Cardiovascular: Reports decreased exercise tolerance, Reports dyspnea on exertion, Reports irregular heart beat, Reports orthopnea, Reports palpitations, Reports shortness of breath Respiratory: Reports cough, Reports snoring, Reports wheezing Gastrointestinal: Reports as per HPI Genitourinary: Reports as per HPI Musculoskeletal: Reports as per HPI Musculoskeletal: absent: ankle pain, ankle stiffness, ankle swelling, as per HPI, elbow pain, elbow stiffness, elbow swelling, foot pain, foot stiffness, foot swelling, hand pain, hand stiffness, hand swelling, hip pain, hip stiffness, hip swelling, knee pain, knee stiffness, knee swelling, shoulder pain, shoulder stiffness, shoulder swelling, wrist pain, wrist stiffness, wrist swelling Integumentary: Reports as per HPI Neurological: Reports as per HPI Psychiatric: Reports as per HPI Endocrine: Reports as per HPI Hematologic/Lymphatic: Reports as per HPI Allergic/Immunologic: Reports as per HPI Past Medical History Past Medical History: Atrial Fibrillation, COPD, Hyperlipidemia, Hypertension, Osteoarthritis (OA) Additional Past Medical History / Comment(s): recently diagnosed with AFIB feburary 2024, degenerative disc disease, sinus problems History of Any Multi-Drug Resistant Organisms: None Reported Past Surgical History: Heart Catheterization Additional Past Surgical History / Comment(s): thumb operated on/secondary to infection, sinus surgery-then developed infection there. Past Anesthesia/Blood Transfusion Reactions: No Reported Reaction Past Psychological History: No Psychological Hx Reported Smoking Status: Former smoker Past Alcohol Use History: None Reported Past Drug Use History: None Reported Medications and Allergies Home Medications Medication Instructions Recorded Confirmed Type Albuterol Nebulized [Ventolin 2.5 mg INHALATION RT-QID 05/21/24 07/09/24 History Nebulized] Albuterol Sulfate [Ventolin HFA] 2 puff INHALATION RT-Q4H PRN 05/21/24 07/09/24 History Fluticasone Nasal [place] [Flonase 2 spr EA NOSTRIL DAILY 05/21/24 07/09/24 History Nasal [place]] Fluticasone Propion/Salmeterol 1 puff INHALATION RT-BID 05/21/24 07/09/24 History [Advair 500-50 Diskus] Fluticasone/Umeclidin/Vilanter 1 puff INHALATION RT-DAILY 05/21/24 07/09/24 History [Trelegy Ellipta 200-62.5-25] guaiFENesin [Mucinex] 1,200 mg PO BID PRN 05/21/24 07/09/24 History Apixaban [Eliquis] 5 mg PO BID #60 tab 05/24/24 07/09/24 Rx Ipratropium-Albuterol Nebulize 3 ml INHALATION RT-Q4H PRN each 05/24/24 07/09/24 Rx [Duoneb 0.5 mg-3 mg/3 ml Soln] Ipratropium-Albuterol Nebulize 3 ml INHALATION RT-QID #100 each 05/24/24 07/09/24 Rx [Duoneb 0.5 mg-3 mg/3 ml Soln] Tiotropium [place] [Spiriva 1 puff INHALATION RT-DAILY 06/11/24 07/09/24 History Handihaler] Atorvastatin [Lipitor] 40 mg PO HS #30 tab 06/14/24 07/09/24 Rx Dapagliflozin Propanediol [Farxiga] 10 mg PO DAILY #30 tab 06/14/24 07/09/24 Rx Losartan [Cozaar] 12.5 mg PO DAILY #30 tab 06/14/24 07/09/24 Rx Metoprolol Tartrate [Lopressor] 100 mg PO BID #120 tab 06/14/24 07/09/24 Rx Spironolactone [Aldactone] 25 mg PO DAILY #30 tab 06/14/24 07/09/24 Rx Torsemide [Demadex] 10 mg PO DAILY #30 tab 06/14/24 07/09/24 Rx Amiodarone [Cordarone] 200 mg PO DAILY 07/09/24 07/09/24 History Budesonide [Pulmicort] 1 mg INHALATION RT-BID 07/09/24 07/09/24 History Allergies Allergy/AdvReac Type Severity Reaction Status Date / Time No Known Allergies Allergy Verified 07/09/24 10:42 Physical Exam Vitals: Vital Signs Temp Pulse Pulse Resp BP BP Pulse Ox 07/10/24 08:49 66 07/10/24 08:38 72 07/10/24 07:29 97.6 F 85 18 132/88 94 L 07/10/24 04:11 68 07/10/24 03:57 70 07/10/24 00:59 73 07/10/24 00:50 98.3 F 66 18 121/87 99 07/10/24 00:48 75 07/09/24 19:43 69 07/09/24 19:35 66 07/09/24 19:05 97.9 F 83 16 149/80 97 07/09/24 16:30 65 07/09/24 16:21 96 07/09/24 16:20 63 07/09/24 13:20 97.6 F 60 18 134/62 98 07/09/24 12:54 98.7 F 77 16 143/92 98 07/09/24 12:20 60 07/09/24 12:04 60 Intake and Output 07/09/24 07/10/24 07/10/24 22:59 06:59 14:59 Intake Total 500 61.191 Output Total 1850 2550 Balance -1849 -2049 61.191 Intake: Intake, IV Titration 61.191 Amount Heparin Sod,Pork in 0.45% 61.191 NaCl 25,000 unit In 0.45 % NaCl 1 250ml.bag @ 9.19 UNITS/KG/HR 10.004 mls/ hr IV .Q24H [facility] Rx#: [id number] Oral 500 Output: Urine 1850 2550 Other: Voiding Method Urinal The patient appeared well nourished and normally developed. Vital signs as documented., Comfortable on room air oxygen with a body mass index of 35.4 Head exam is unremarkable. No scleral icterus or corneal arcus noted. Neck is without jugular venous distension, thyromegaly, or carotid bruits. Carotid upstrokes are brisk bilaterally. Lungs are c diminished with scattered expiratory wheezing bilaterally Cardiac exam reveals the PMI to be normally sized and situated. Irregular consistent with atrial fibrillation. First and second heart sounds normal. No murmurs, rubs or gallops. Abdominal exam reveals normal bowel sounds, no masses, no organomegaly and no aortic enlargement. Extremities are nonedematous and both femoral and pedal pulses are normal. Examination of the skin revealed no evidence of significant rashes, suspicious appearing nevi or other concerning lesions. Neurologically, the patient is awake and alert and the patient does not have any focal neurological deficit. Cranial nerves are essentially intact. Results - Laboratory Findings CBC and BMP: 07/10/24 07:12 07/10/24 07:12 PT/INR, D-dimer PT 10.6 sec (10.0-12.5) 07/10/24 00:37 INR 0.9 (<1.2) 07/10/24 00:37 Abnormal lab findings: Abnormal Labs 07/09/24 07/09/24 07/09/24 11:55 14:49 14:49 WBC 11.6 H Hct MCV 103.1 H Neutrophils # 10.7 H Lymphocytes # 0.6 L Sodium 125 L Chloride 93 L Carbon Dioxide 17 L BUN 47 H Creatinine 2.30 H Glucose 377 H POC Glucose (mg/dL) ALT 81 H Urine Glucose (UA) 4+ H 07/09/24 07/09/24 07/10/24 16:13 21:01 00:37 WBC 14.6 H Hct MCV 102.8 H Neutrophils # 13.4 H Lymphocytes # 0.6 L Sodium Chloride Carbon Dioxide BUN Creatinine Glucose POC Glucose (mg/dL) 365 H 313 H ALT Urine Glucose (UA) 07/10/24 07/10/24 07/10/24 06:26 07:12 07:12 WBC 17.6 H Hct 54.2 H MCV 104.4 H Neutrophils # 16.5 H Lymphocytes # 0.6 L Sodium 132 L Chloride Carbon Dioxide BUN 46 H Creatinine 1.78 H Glucose 240 H POC Glucose (mg/dL) 237 H ALT Urine Glucose (UA) Assessment and Plan Plan: Substernal chest pain/shortness of breath under investigation. Patient has a mild component of COPD exacerbation. He is also in atrial fibrillation with a controlled rate. COPD with mild exacerbation CHF with an EF of around 40 to 45% Chronic atrial fibrillation, previous JUAN cardioversion was not done due to a clot in the left atrial appendage. Acute kidney injury probably induced by intake of nonsteroidal anti-inflammatory medications, renal function continues to improve and the patient is nonoliguric at this point. Obesity with suspected PRAMOD Hypothyroidism Diabetes mellitus type 2 with a HbA1c of 7.3 History of smoking Plan Patient is currently on room air oxygen Continue DuoNeb updrafts Continue Symbicort Discontinue IV Solu-Medrol start the patient on prednisone burst taper Continue amiodarone and beta-blockers in the form of metoprolol Anticoagulation IV heparin Continue aspirin Monitor renal function the patient is currently showing improvement in creatinine. Remains on normal citrate of 80 cc an hour Hold Farxiga, losartan and torsemide for now Cardiac catheterization once renal function improves Outpatient sleep study Will follow Time with Patient: Greater than 30
[2024-07-10] MEDS: predniSONE 20 MG TAB PO SCH (11:55)
[2024-07-10] MEDS: FLUTICASONE NASAL 50MCG/SPRAY 16GM BTL EA NOSTRIL SCH (11:56)
[2024-07-10] MEDS: guaiFENesin 600 MG TABLET.ER PO SCH (12:50)
--- NOTE | 2024-07-10 16:12 | P.PN ---
Subjective Progress Note Date: 07/10/24 HISTORY OF PRESENTING ILLNESS: 63-year-old with past medical history of persistent atrial fibrillation, c ardiomyopathy with a EF of 40 to 45%, dyspnea on exertion, ex-tobacco smoker, obesity, suspected obstructive sleep apnea and COPD. He was hospitalized in May and then in June with atrial fibrillation with RVR with symptoms of palpitation and shortness of breath. Patient was adamant that he needs a heart catheterization because of his symptoms however both that time we noticed that he was in mild congestive heart failure exacerbation because of his cardiomyopathy and atrial fibrillation with RVR. In June 2024 JUAN cardioversion was attempted however on JUAN it was noticed that patient has a left atrial appendage thrombus therefore cardioversion was not performed. He was discharged home on optimize his guideline recommended medical therapy and was instructed to follow-up on outpatient basis for a stress test however patient never followed up in the office. This time patient presented to [facility] with similar symptoms of substernal chest pressure and shortness of breath. On admission basic labs showed evidence of ANNMARIE. On last discharge he was discharged on GDMT with torsemide 10, Farxiga 10, losartan 12.5 mg daily, metoprolol 100 mg twice daily, amiodarone 200 mg Admission EKG shows atrial fibrillation with controlled heart rate 98 bpm, moderate interventricular conduction delay Admission labs showed hyponatremia sodium 125, potassium 5.1, BUN 47, creatinine 2.3 07/10/2024 Patient seen and examined at bedside this a.m. Patient is still adamant on getting a heart catheterization done before the discharge Creatinine 1.7 today PHYSICAL EXAMINATION: Neck: Brisk carotid upstroke, no jugular venous distention. Lungs: Clear to auscultation. Heart: Irregularly irregular pulse, S1-S2, , no murmur or rub. Abdomen: Soft nontender, positive bowel sounds. Extremities: No edema, intact distal pulses. Neuro: Alert, oritented, no focal deficits. Detailed neuro exam was not performed. ASSESSMENT: # ANNMARIE # Dyspnea on exertion # Substernal chest pressure # Persistent atrial fibrillation # Cardiomyopathy with a EF of 40 to 45% # Obesity # Type 2 diabetes, A1c 7.3, # Low TSH with normal T4, TSH 0.19 # Medication and medical recommendation noncompliance # Obesity # Suspected PRAMOD # Hearing imparement PLAN: Continue aspirin, IV heparin drip, metoprolol Continue amiodarone 200 mg daily, metoprolol 100 mg twice daily Hold losartan, Farxiga, torsemide Gentle IV hydration, nephrology consult If kidney function improves back to baseline, consider heart catheterization on Thursday for cardiomyopathy evaluation. Patient has high chances of readmissions because of previous noncompliance to medication and medical recommendations. Vega Grady MD, FAC, RPVI Objective - Vital Signs Vital signs: Vital Signs Temp 98.2 F 07/10/24 14:00 Pulse 74 07/10/24 15:36 Resp 18 07/10/24 14:00 BP 105/68 07/10/24 14:00 Pulse Ox 95 07/10/24 14:00 FiO2 Intake & Output 07/09/24 07/10/24 07/10/24 18:59 06:59 18:59 Intake Total 500 166.688 Output Total 1250 3150 Balance -1250 -2650 166.688 Weight 108.862 kg Intake: Intake, IV Titration 166.688 Amount Heparin Sod,Pork in 0.45% 166.688 NaCl 25,000 unit In 0.45 % NaCl 1 250ml.bag @ 9.19 UNITS/KG/HR 10.004 mls/ hr IV .Q24H [facility] Rx#: [id number] Oral 500 Output: Urine 1250 3150 Other: Voiding Method Urinal - Labs CBC & Chem 7: 07/10/24 07:12 07/10/24 07:12 Labs: Abnormal Lab Results - Last 24 Hours (Table) 07/09/24 07/09/24 07/10/24 Range/Units 16:13 21:01 00:37 WBC 14.6 H (3.8-10.6) k/uL Hct (39.0-53.0) % MCV 102.8 H (80.0-100.0) fL Neutrophils # 13.4 H (1.3-7.7) k/uL Lymphocytes # 0.6 L (1.0-4.8) k/uL APTT (22.0-30.0) sec Sodium (137-145) mmol/L BUN (9-20) mg/dL Creatinine (0.66-1.25) mg/dL Glucose (74-99) mg/dL POC Glucose (mg/dL) 365 H 313 H (70-110) mg/dL Hemoglobin A1c (<=6.0) % 07/10/24 07/10/24 07/10/24 Range/Units 06:26 07:12 07:12 WBC (3.8-10.6) k/uL Hct (39.0-53.0) % MCV (80.0-100.0) fL Neutrophils # (1.3-7.7) k/uL Lymphocytes # (1.0-4.8) k/uL APTT (22.0-30.0) sec Sodium 132 L (137-145) mmol/L BUN 46 H (9-20) mg/dL Creatinine 1.78 H (0.66-1.25) mg/dL Glucose 240 H (74-99) mg/dL POC Glucose (mg/dL) 237 H (70-110) mg/dL Hemoglobin A1c 7.9 H (<=6.0) % 07/10/24 07/10/24 07/10/24 Range/Units 07:12 11:20 15:02 WBC 17.6 H (3.8-10.6) k/uL Hct 54.2 H (39.0-53.0) % MCV 104.4 H (80.0-100.0) fL Neutrophils # 16.5 H (1.3-7.7) k/uL Lymphocytes # 0.6 L (1.0-4.8) k/uL APTT 30.2 H (22.0-30.0) sec Sodium (137-145) mmol/L BUN (9-20) mg/dL Creatinine (0.66-1.25) mg/dL Glucose (74-99) mg/dL POC Glucose (mg/dL) 250 H (70-110) mg/dL Hemoglobin A1c (<=6.0) %
[2024-07-10 16:50] LABS: Glucose,Whole Blood 288 mg/dL (70-110)
[2024-07-10 19:33] LABS: Glucose,Whole Blood 271 mg/dL (70-110)
--- NOTE | 2024-07-11 05:27 | PN ---
PROGRESS NOTE DATE OF SERVICE: 07/10/2024 SUBJECTIVE: This is a 63-year-old gentleman, who was admitted with COPD acute exacerbation, also had renal failure. The patient also had atrial thrombus previously. The creatinine was found to be 1.78, blood sugars are elevated. Multiple consultants are following the patient closely at this time, including Cardiology, Pulmonology, and Nephrology. The patient has substernal chest pressure when presented to [facility]. The patient has a history of previous noncompliance also. Once the kidney function remains to be normal, cardiac catheterization may be considered per Cardiology. PAST MEDICAL HISTORY: Reviewed. REVIEW OF SYSTEMS: A 14-point review of systems is negative except as mentioned earlier. CURRENT MEDICATIONS: Reviewed. PHYSICAL EXAMINATION: VITAL SIGNS: Pulse is 82, blood pressure 105/56, respirations 18. CHEST: A few scattered rhonchi and crackles. ABDOMEN: Soft. NERVOUS SYSTEM: Nonfocal. LABORATORY DATA: Noted. Creatinine is 1.78. ASSESSMENT: 1. Chronic obstructive pulmonary disease acute exacerbation. 2. Acute on chronic renal failure. 3. Chest pain on presentation, rule out unstable angina. 4. JUAN showing atrial thrombus managed by Pat previously. 5. History of atrial fibrillation. 6. Hypertension. 7. Hyperlipidemia. 8. Multiple complex medical issues. RECOMMENDATIONS: Recommend to continue current management and continue symptomatic treatment. Otherwise, closely follow with Cardiology. We will continue with IV fluids. Avoid nephrotoxic medications. Guarded prognosis because of multiple complex medical issues. Further recommendations to follow. See orders for further details. MMODL / IJN: [id number] /
[2024-07-11 06:02] LABS: Glucose,Whole Blood 177 mg/dL (70-110)
[2024-07-11 08:18] LABS: Partial Thromboplastin Time 50.2 sec (22.0-30.0)
[2024-07-11 10:21] LABS: HCT 43.4 % (39.6-50.0); HGB 14.3 g/dL (13.0-17.0); MCHC 32.9 g/dL (32.0-37.0); MCV 103.1 FL (80.0-97.0); Mean Platelet Volume 10.9 FL (9.5-12.2); NRBC Per 100 WBC 0 X 10*3/uL (0.00-0.01); Platelet Count 356 X 10*3/uL (140-440); RBC 4.21 X 10*6/uL (4.40-5.60); RDW 14.6 % (11.5-14.5); WBC 21.89 X 10*3/uL (4.50-10.00)
--- NOTE | 2024-07-11 10:30 | P.PN ---
Subjective Patient is seen in follow-up for acute kidney injury. Renal function improving. On IV fluids. Admits to good urine output. No active complaints. Vital signs are stable. General: No acute distress. HEENT: Head exam is unremarkable. LUNGS: No audible rhonchi or wheezes. HEART: Rate and Rhythm are regular. ABDOMEN: Nontender. EXTREMITITES: No edema. Objective - Vital Signs Vital signs: Vital Signs Temp 97.9 F 07/11/24 07:06 Pulse 72 07/11/24 10:24 Resp 16 07/11/24 07:06 BP 128/76 07/11/24 07:06 Pulse Ox 97 07/11/24 07:06 FiO2 Intake & Output 07/10/24 07/11/24 07/11/24 18:59 06:59 18:59 Intake Total 166.688 603.312 178.864 Output Total 1125 1650 Balance -958.312 -1046.688 178.864 Intake: Intake, IV Titration 166.688 83.312 178.864 Amount Heparin Sod,Pork in 0.45% 166.688 83.312 178.864 NaCl 25,000 unit In 0.45 % NaCl 1 250ml.bag @ 9.19 UNITS/KG/HR 10.004 mls/ hr IV .Q24H [facility] Rx#: [id number] Oral 520 Output: Urine 1125 1650 Other: Voiding Method Urinal Toilet # Bowel Movements 1 - Labs CBC & Chem 7: 07/11/24 07:48 07/10/24 07:12 Labs: Abnormal Lab Results - Last 24 Hours (Table) 07/10/24 07/10/24 07/10/24 Range/Units 07:12 11:20 15:02 WBC (4.50-10.00) X 10*3/uL RBC (4.40-5.60) X 10*6/uL MCV (80.0-97.0) FL MCH (27.0-32.0) pg RDW (11.5-14.5) % APTT 30.2 H (22.0-30.0) sec POC Glucose (mg/dL) 250 H (70-110) mg/dL Hemoglobin A1c 7.9 H (<=6.0) % 07/10/24 07/10/24 07/10/24 Range/Units 16:48 19:31 21:04 WBC (4.50-10.00) X 10*3/uL RBC (4.40-5.60) X 10*6/uL MCV (80.0-97.0) FL MCH (27.0-32.0) pg RDW (11.5-14.5) % APTT 57.8 H (22.0-30.0) sec POC Glucose (mg/dL) 288 H 271 H (70-110) mg/dL Hemoglobin A1c (<=6.0) % 07/11/24 07/11/24 07/11/24 Range/Units 06:01 07:48 07:48 WBC 21.89 H (4.50-10.00) X 10*3/uL RBC 4.21 L (4.40-5.60) X 10*6/uL MCV 103.1 H (80.0-97.0) FL MCH 34.0 H (27.0-32.0) pg RDW 14.6 H (11.5-14.5) % APTT 50.2 H (22.0-30.0) sec POC Glucose (mg/dL) 177 H (70-110) mg/dL Hemoglobin A1c (<=6.0) % Assessment and Plan Plan: Assessment: 1. Acute kidney injury secondary to ATN secondary to hypovolemia, NSAIDs and further worsened with the use of diuretics, Cozaar. Creatinine 2.8 on admission (at another facility) - 1.78 yesterday. Baseline creatinine near 1 from June 2024. UA benign. No hydronephrosis noted on kidney ultrasound. 2. Atrial thrombus maintained on anticoagulation. 3. History of A-fib. 4. Chronic systolic CHF ejection fraction of 40% with mild to moderate mitral regurgitation. 5. Metabolic acidosis secondary to acute kidney injury. Improved. Plan: Maintain IV fluids. Continue to hold diuretics and antihypertensives. Avoid nephrotoxins. Continue to monitor renal function and urine output. Cardiac catheterization being considered. Discussed with patient the risk of developing worsening renal failure post IV contrast exposure. He understands. Morning labs pending.
[2024-07-11 10:42] LABS: ALT 67 U/L (10-49); AST 33 U/L (14-35); Albumin 3.8 g/dL (3.8-4.9); Alkaline Phosphatase 86 U/L (41-126); BUN/Creat Ratio 25.92 Ratio (12.00-20.00); Blood Urea Nitrogen 33.7 mg/dL (9.0-27.0); Calcium 8.6 mg/dL (8.7-10.3); Carbon Dioxide 23.1 mmol/L (21.6-31.8); Chloride 105 mmol/L (96-109); Glucose 182 mg/dL (70-110); Magnesium 2.2 mg/dL (1.5-2.4); Potassium 4.8 mmol/L (3.5-5.5); Sodium 138 mmol/L (135-145); Total Bilirubin 0.5 mg/dL (0.3-1.2); Total Protein 5.8 g/dL (6.2-8.2)
[2024-07-11] MEDS ORDERED: NITROGLYCERIN SL TABS 0.4 MG TAB SUBLINGUAL PRN (10:48)
[2024-07-11] MEDS ORDERED: ALPRAZolam 0.5 MG TAB PO PRN (10:48)
[2024-07-11] MEDS ORDERED: ALPRAZolam 0.25 MG TAB PO PRN (10:48)
[2024-07-11 10:57] LABS: Basophils # (A) 0.04 X 10*3/uL (0.00-0.10); Basophils % (A) 0.2 %; Eosinophils # (A) 0 X 10*3/uL (0.04-0.35); Eosinophils % (A) 0 %; Lymphocytes # (A) 1.61 X 10*3/uL (0.90-5.00); Lymphocytes % (A) 7.4 %; Monocytes # (A) 1.52 X 10*3/uL (0.20-1.00); Monocytes % (A) 6.9 %; Neutrophils # (A) 18.48 X 10*3/uL (1.80-7.70); Neutrophils % (A) 84.4 %
[2024-07-11] MEDS: ATORVASTATIN 80 MG TAB PO STA (10:59)
[2024-07-11] MEDS: ASPIRIN 325 MG TAB PO STA (10:59)
--- NOTE | 2024-07-11 11:07 | P.PN ---
Subjective HISTORY OF PRESENT ILLNESS: 63-year-old with past medical history of persistent atrial fibrillation, cardiomyopathy with a EF of 40 to 45%, dyspnea on exertion, ex-tobacco smoker, obesity, suspected obstructive sleep apnea and COPD. He was hospitalized in May and then in June with atrial fibrillation with RVR with symptoms of palpitation and shortness of breath. Patient was adamant that he needs a heart catheterization because of his symptoms however both that time we noticed that he was in mild congestive heart failure exacerbation because of his cardiomyopathy and atrial fibrillation with RVR. In June 2024 JUAN cardioversion was attempted however on JUAN it was noticed that patient has a left atrial appendage thrombus therefore cardioversion was not performed. He was discharged home on optimize his guideline recommended medical therapy and was instructed to follow-up on outpatient basis for a stress test however patient never followed up in the office. This time patient presented to [facility] with similar symptoms of substernal chest pressure and shortness of breath. On admission basic labs showed evidence of ANNMARIE. On last discharge he was discharged on GDMT with torsemide 10, Farxiga 10, losartan 12.5 mg daily, metoprolol 100 mg twice daily, amiodarone 200 mg Admission EKG shows atrial fibrillation with controlled heart rate 98 bpm, moderate interventricular conduction delay Admission labs showed hyponatremia sodium 125, potassium 5.1, BUN 47, creatinine 2.3 07/10/2024 Patient seen and examined at bedside this a.m. Patient is still adamant on getting a heart catheterization done before the dis charge Creatinine 1.7 today 07/11/2024 Patient examined this morning at the bedside. Patient currently denies chest pain or pressure. He denies shortness of breath. Vital signs are stable. Creatinine improved today to 1.3. He remains on IV heparin. PHYSICAL EXAM: VITAL SIGNS: Reviewed. GENERAL: Well-developed in no acute distress. NECK: Supple. No JVD or thyromegaly LUNGS: Respirations even and unlabored. Lungs essentially clear to auscultation bilaterally. HEART: Regular rate and rhythm. S1 and S2 heard. EXTREMITIES: Normal range of motion. No clubbing or cyanosis. Peripheral pulses intact. No lower extremity edema ASSESSMENT: # ANNMARIE # Dyspnea on exertion # Substernal chest pressure # Persistent atrial fibrillation # Cardiomyopathy with a EF of 40 to 45% # Obesity # Type 2 diabetes, A1c 7.3, # Low TSH with normal T4, TSH 0.19 # Medication and medical recommendation noncompliance # Obesity # Suspected PRAMOD # Hearing impairment PLAN: Continue current cardiac medications including amiodarone, aspirin, Lipitor, metoprolol Continue IV heparin. Patient will need to be transitioned to oral anticoagulation post cardiac catheterization Patient to undergo cardiac catheterization today with Dr. Grady Further recommendations pending patient course Nurse practitioner note has been reviewed by physician. Signing provider agrees with the documented findings, assessment, and plan of care documented by [employer] as a scribe. Objective - Vital Signs Vital signs: Vital Signs Temp 97.9 F 07/11/24 07:06 Pulse 72 07/11/24 10:24 Resp 16 07/11/24 07:06 BP 128/76 07/11/24 07:06 Pulse Ox 97 07/11/24 07:06 FiO2 Intake & Output 07/10/24 07/11/24 07/11/24 18:59 06:59 18:59 Intake Total 166.688 603.312 178.864 Output Total 1125 1650 Balance -958.312 -1046.688 178.864 Intake: Intake, IV Titration 166.688 83.312 178.864 Amount Heparin Sod,Pork in 0.45% 166.688 83.312 178.864 NaCl 25,000 unit In 0.45 % NaCl 1 250ml.bag @ 9.19 UNITS/KG/HR 10.004 mls/ hr IV .Q24H ROSALBA Rx#: [id number] Oral 520 Output: Urine 1125 1650 Other: Voiding Method Urinal Toilet # Bowel Movements 1 - Labs CBC & Chem 7: 07/11/24 07:48 07/11/24 07:48 Labs: Abnormal Lab Results - Last 24 Hours (Table) 07/10/24 07/10/24 07/10/24 Range/Units 07:12 11:20 15:02 WBC (4.50-10.00) X 10*3/uL RBC (4.40-5.60) X 10*6/uL MCV (80.0-97.0) FL MCH (27.0-32.0) pg RDW (11.5-14.5) % Immature Gran # (0.00-0.04) X 10*3/uL Neutrophils # (1.80-7.70) X 10*3/uL Monocytes # (0.20-1.00) X 10*3/uL Eosinophils # (0.04-0.35) X 10*3/uL APTT 30.2 H (22.0-30.0) sec BUN (9.0-27.0) mg/dL BUN/Creatinine Ratio (12.00-20.00) Ratio Glucose (70-110) mg/dL POC Glucose (mg/dL) 250 H (70-110) mg/dL Hemoglobin A1c 7.9 H (<=6.0) % Calcium (8.7-10.3) mg/dL ALT (10-49) U/L Total Protein (6.2-8.2) g/dL 07/10/24 07/10/24 07/10/24 Range/Units 16:48 19:31 21:04 WBC (4.50-10.00) X 10*3/uL RBC (4.40-5.60) X 10*6/uL MCV (80.0-97.0) FL MCH (27.0-32.0) pg RDW (11.5-14.5) % Immature Gran # (0.00-0.04) X 10*3/uL Neutrophils # (1.80-7.70) X 10*3/uL Monocytes # (0.20-1.00) X 10*3/uL Eosinophils # (0.04-0.35) X 10*3/uL APTT 57.8 H (22.0-30.0) sec BUN (9.0-27.0) mg/dL BUN/Creatinine Ratio (12.00-20.00) Ratio Glucose (70-110) mg/dL POC Glucose (mg/dL) 288 H 271 H (70-110) mg/dL Hemoglobin A1c (<=6.0) % Calcium (8.7-10.3) mg/dL ALT (10-49) U/L Total Protein (6.2-8.2) g/dL 07/11/24 07/11/24 07/11/24 Range/Units 06:01 07:48 07:48 WBC 21.89 H (4.50-10.00) X 10*3/uL RBC 4.21 L (4.40-5.60) X 10*6/uL MCV 103.1 H (80.0-97.0) FL MCH 34.0 H (27.0-32.0) pg RDW 14.6 H (11.5-14.5) % Immature Gran # 0.24 H (0.00-0.04) X 10*3/uL Neutrophils # 18.48 H (1.80-7.70) X 10*3/uL Monocytes # 1.52 H (0.20-1.00) X 10*3/uL Eosinophils # 0 L (0.04-0.35) X 10*3/uL APTT (22.0-30.0) sec BUN 33.7 H (9.0-27.0) mg/dL BUN/Creatinine Ratio 25.92 H (12.00-20.00) Ratio Glucose 182 H (70-110) mg/dL POC Glucose (mg/dL) 177 H (70-110) mg/dL Hemoglobin A1c (<=6.0) % Calcium 8.6 L (8.7-10.3) mg/dL ALT 67 H (10-49) U/L Total Protein 5.8 L (6.2-8.2) g/dL 07/11/24 Range/Units 07:48 WBC (4.50-10.00) X 10*3/uL RBC (4.40-5.60) X 10*6/uL MCV (80.0-97.0) FL MCH (27.0-32.0) pg RDW (11.5-14.5) % Immature Gran # (0.00-0.04) X 10*3/uL Neutrophils # (1.80-7.70) X 10*3/uL Monocytes # (0.20-1.00) X 10*3/uL Eosinophils # (0.04-0.35) X 10*3/uL APTT 50.2 H (22.0-30.0) sec BUN (9.0-27.0) mg/dL BUN/Creatinine Ratio (12.00-20.00) Ratio Glucose (70-110) mg/dL POC Glucose (mg/dL) (70-110) mg/dL Hemoglobin A1c (<=6.0) % Calcium (8.7-10.3) mg/dL ALT (10-49) U/L Total Protein (6.2-8.2) g/dL
[2024-07-11 11:37] LABS: African American GFR (CKD) 77 (>60 ml/min/1.73 sqM); Anion Gap 4 mmol/L; Blood Urea Nitrogen 36 mg/dL (9-20); Calcium 9.1 mg/dL (8.4-10.2); Carbon Dioxide 26 mmol/L (22-30); Chloride 104 mmol/L (98-107); Glucose 177 mg/dL (74-99); Non-African American GFR(CKD) 67 (>60 ml/min/1.73 sqM); Potassium 4.9 mmol/L (3.5-5.1); Sodium 134 mmol/L (137-145)
[2024-07-11 11:39] LABS: Glucose,Whole Blood 173 mg/dL (70-110)
[2024-07-11] MEDS: IV FLUID CONTINUATION 500 ML IV ONE (12:59)
[2024-07-11] MEDS: HEPARIN SODIUM,PORCINE (1 ML) 2,500 UNIT in SODIUM CHLORIDE 0.9% 250 ML IRRIGATION ONE (13:07)
[2024-07-11] MEDS: HEPARIN SODIUM,PORCINE 10,000 UNIT in SODIUM CHLORIDE 0.9% 1,000 ML IRRIGATION ONE (13:08)
[2024-07-11] MEDS: MIDAZOLAM 2 MG/2 ML VIAL IVP ONE (13:16)
[2024-07-11] MEDS: fentaNYL (PF) 50 MCG/1 ML VIAL IVP ONE (13:18)
[2024-07-11] MEDS: LIDOCAINE 1% INJ 10MG/ML (20 ML MDV) SQ ONE (13:21)
[2024-07-11] MEDS: VERAPAMIL SYRINGE (5 MG/10 ML) INTRAARTER ONE ×2 (13:23→13:24)
[2024-07-11] MEDS: IOPAMIDOL-300 100ML BTL INJ ONE (13:35)
[2024-07-11] MEDS ORDERED: RX INFO: IV CONTRAST WAS GIVEN 1 EACH MISC MISCELLANE PRN (13:46)
--- NOTE | 2024-07-11 13:46 | P.CARDCATH ---
Date of Procedure: 07/11/24 Description of Procedure: DIAGNOSTIC CORONARY ANGIOGRAPHY and LEFT HEART CATH REPORT PROCEDURES PERFORMED: Left heart catheterization Selective coronary angiography Moderate conscious sedation 16 mins [Ultrasound assisted] Right radial access INDICATION: Unstable angina BRIEF HPI: 63-year-old with history of atrial fibrillation. He had a JUAN cardioversion attempted last month but could not have cardioversion done because of the evidence of thrombus in left atrial appendage. He was recommended to be started on guideline directed medical therapy for HFmrEF and work of heart rhythm controlled with amiodarone and metoprolol. He represented to the hospital because of worsening shortness of breath. On admission he had evidence of ANNMARIE. Because of his recurrent shortness of breath and chest pain symptom. On this presentation he was in A-fib but his RVR was controlled and he did not appear volume overloaded. Because of persistent symptoms of shortness of breath even with better rate control and no signs of congestive heart failure, he was scheduled for heart catheterization procedure to rule out any severe obstructive coronary artery disease as a reason for his cardiomyopathy and his symptoms. CONSENT: I have explained the procedural steps of above-mentioned procedures in layman's terms to the patient. I discussed the risks (including but not limited to stroke, emergent vascular or cardiac surgery or ), benefits and alternative therapies for the above-mentioned procedure. I discussed the risks of sedation/analgesia and blood product administration (if indicated). The patient has indicated understanding and acceptance of these risks. Conscious Sedation: Patient's ECG, heart rate, blood pressure, pulse oximetry were monitored throughout the duration of procedure under my direct supervision. 1 mg Versed and 50 mcg Fentanyl were used for induction of moderate conscious sedation. Total duration of moderate concious sedation 16 minutes. PROCEDURAL DETAILS: Patient was prepped and draped in sterile fashion. 1% lidocaine was infiltrated over the right radial artery. Right radial access was obtained via modified seldinger technique. [Ultrasound was used for radial access]. Medications: 5mg of verapamil was administed in the radial sheet. 6000 Units of Heparin was administed once the catheter reached the aortic root Wires and Catheter used: J wire was advanced under fluroscopy to get to aortic root. 5 dominican JR 4 diagnostic catheter was utilized obtain left ventricular pressure and pressure gradint across aortic valve. 5 dominican JR 4 diagnostic catheter was used to selectively engage the right coronary ostium. 5 dominican JL 3.5 diagnostic catheter was utilized to selectively engage the left coronary ostium. Angiographic images were reviewed in detail. Catheter and wire were removed. Radial sheet was flushed. The right radial sheath was removed and a TR band was placed. Patent hemostasis was achieved. The patient tolerated the procedure well. Patient was transported back to the post catheterization holding area in stable condition. HEMODYNAMICS: Aortic Pressure: 130/80 mmHg. LV pressure: 134/10 mmHg. LVEDP 25 mmHg. There was no significant gradient across the aortic valve. SELECTIVE CORONARY ARTERIOGRAPHY: LEFT MAIN: The left main is short and large caliber vessel. It bifurcates into the LAD and circumflex. Left main appears angiographically normal. LEFT ANTERIOR DESCENDING CORONARY ARTERY: LAD is large caliber and appears angio graphically patent with minimal luminal irregularities. It gives rise to diagonal branches which appears graphically patent. LEFT CIRCUMFLEX CORONARY ARTERY: Nondominant moderate caliber vessel. LCx appears angiographically patent with mild-moderate irregularities. It gives rise to to OM branche which appears angiographically patent. RIGHT CORONARY ARTERY: Dominant vessel. RCA is large-caliber vessel. Appears angiographically patent. Gives rise to PDA and PL branch which appears angiographically patent. IMPRESSION: Angiographically patent coronary artery with mild luminal irregularities Elevated LVEDP of 25 mmHg PLAN: Aggressive risk factor modification per most recent ACC/AHA guidelines. 75 cc/h for 4 hours Because of elevated LVEDP with recovered creatinine, I would not recommend further IV fluids. Monitor kidney function tomorrow, may consider adding SGLT2 and losartan. May consider not doing torsemide. Recommend outpatient follow-up for possible JUAN cardioversion in 4 to 6 weeks Performing Physician Vega Grady MD, FACC, RPVI Thank you for allowing [facility] to participate in this patient's care. Feel free to reach out in case of any followup questions.
[2024-07-11] MEDS: SODIUM CHLORIDE 0.9% 1,000 ML IV SCH (14:57)
--- NOTE | 2024-07-11 15:55 | P.PN ---
Subjective Progress Note Date: 07/11/24 This is a 63-year-old male patient presented emerged part with worsening shortness of breath. The patient has history of COPD and has been hospitalized in the past for acute COPD exacerbation, treated and discharged. He denies smoking. He is also suspected of obstructive sleep apnea based on his anatomic features and weight. Nevertheless, the final diagnosis not been established and sleep study has not been done. He also has CHF with an EF of around 40 to 45% and has atrial fibrillation. During his last admission, the patient was A-fib RVR. JUAN cardioversion was attempted during his last admission. However, he was noted to have a clot in the left atrial appendage and the procedure was not performed. As such, the patient was treated medically. The patient presented to [facility] with some substernal chest pain and increased shortness of breath. He was noted to be in atrial fibrillation. At this point in time, his rate is controlled and his EKG is not showing any acute abnormalities. He has been maintained on a combination of metoprolol 100 mg p.o. twice a day and amiodarone 200 mg p.o. daily and Farxiga and torsemide on outpatient basis. Chest x-ray from this current admission shows no acute abnormalities. On a separate note, the blood work showed an acute kidney injury. The patient has been overutilizing nonsteroidal anti-inflammatory medications and was taking Motrin 800 mg at least 3 times a day. Nephrology's been consulted. He was given IV fluids. Creatinine has dropped from 2.3 down to 1.7 and is producing urine output. Electrolytes are stable. The white cell count today is at 17.6 with a hemoglobin 17.2 and a platelet count of 375. He is currently on DuoNeb [id number]. He is on IV heparin. He is on oral amiodarone and metoprolol.. He was also started on IV Solu-Medrol. Nevertheless, his COPD is not quite active and the patient will be started on a prednisone burst taper. He is on IV fluids normal saline at rate of 80 cc an hour. The patient is seen today July 11, 2024 in follow-up on the regular medical floor. He is awake and alert in no acute distress. Maintaining O2 saturations in the mid 90s on room air. He has been afebrile. Hemodynamically stable. White count 21.8. Hemoglobin 14.3. Platelets 356. Sodium 134. Potassium 4.9. Bicarb 26. BUN 36. Creatinine 1.17. Glucose 177. He remains on DuoNeb inha lations, Symbicort, prednisone taper. He remains on a heparin drip. Plan is for cardiac catheterization today. Objective - Vital Signs Vital signs: Vital Signs Temp 98.4 F 07/11/24 12:43 Pulse 58 L 07/11/24 13:50 Resp 16 07/11/24 13:50 BP 142/75 07/11/24 13:50 Pulse Ox 95 07/11/24 13:50 FiO2 Intake & Output 07/10/24 07/11/24 07/11/24 18:59 06:59 18:59 Intake Total 166.688 603.312 280.864 Output Total 1125 1650 Balance -958.312 -1046.688 280.864 Intake: IV 102 Intake, IV Titration 166.688 83.312 178.864 Amount Heparin Sod,Pork in 0.45% 166.688 83.312 178.864 NaCl 25,000 unit In 0.45 % NaCl 1 250ml.bag @ 9.19 UNITS/KG/HR 10.004 mls/ hr IV .Q24H ROSALBA Rx#: [id number] Oral 520 Output: Urine 1125 1650 Other: Voiding Method Urinal Toilet # Bowel Movements 1 - Exam GENERAL EXAM: Alert, active, 63-year-old male patient, on room air, comfortable in no apparent distress. HEAD: Normocephalic. EYES: Normal reaction of pupils, equal size. NOSE: Clear with pink turbinates. THROAT: No erythema or exudates. NECK: No masses, no JVD. CHEST: No chest wall deformity. LUNGS: Equal air entry with no crackles, wheeze, rhonchi or dullness. CVS: S1 and S2 normal with no audible murmur, irregular rhythm. ABDOMEN: No hepatosplenomegaly, normal bowel sounds, no guarding or rigidity. SPINE: No scoliosis or deformity SKIN: No rashes CENTRAL NERVOUS SYSTEM: No focal deficits, tone is normal in all 4 extremities. EXTREMITIES: There is no peripheral edema. No clubbing, no cyanosis. Peripheral pulses are intact. - Labs CBC & Chem 7: 07/11/24 07:48 07/11/24 10:32 Labs: Abnormal Lab Results - Last 24 Hours (Table) 07/10/24 07/10/24 07/10/24 Range/Units 16:48 19:31 21:04 WBC (4.50-10.00) X 10*3/uL RBC (4.40-5.60) X 10*6/uL MCV (80.0-97.0) FL MCH (27.0-32.0) pg RDW (11.5-14.5) % Immature Gran # (0.00-0.04) X 10*3/uL Neutrophils # (1.80-7.70) X 10*3/uL Monocytes # (0.20-1.00) X 10*3/uL Eosinophils # (0.04-0.35) X 10*3/uL APTT 57.8 H (22.0-30.0) sec Sodium (137-145) mmol/L BUN (9.0-27.0) mg/dL BUN/Creatinine Ratio (12.00-20.00) Ratio Glucose (70-110) mg/dL POC Glucose (mg/dL) 288 H 271 H (70-110) mg/dL Calcium (8.7-10.3) mg/dL ALT (10-49) U/L Total Protein (6.2-8.2) g/dL 07/11/24 07/11/24 07/11/24 Range/Units 06:01 07:48 07:48 WBC 21.89 H (4.50-10.00) X 10*3/uL RBC 4.21 L (4.40-5.60) X 10*6/uL MCV 103.1 H (80.0-97.0) FL MCH 34.0 H (27.0-32.0) pg RDW 14.6 H (11.5-14.5) % Immature Gran # 0.24 H (0.00-0.04) X 10*3/uL Neutrophils # 18.48 H (1.80-7.70) X 10*3/uL Monocytes # 1.52 H (0.20-1.00) X 10*3/uL Eosinophils # 0 L (0.04-0.35) X 10*3/uL APTT (22.0-30.0) sec Sodium (137-145) mmol/L BUN 33.7 H (9.0-27.0) mg/dL BUN/Creatinine Ratio 25.92 H (12.00-20.00) Ratio Glucose 182 H (70-110) mg/dL POC Glucose (mg/dL) 177 H (70-110) mg/dL Calcium 8.6 L (8.7-10.3) mg/dL ALT 67 H (10-49) U/L Total Protein 5.8 L (6.2-8.2) g/dL 07/11/24 07/11/24 07/11/24 Range/Units 07:48 10:32 11:38 WBC (4.50-10.00) X 10*3/uL RBC (4.40-5.60) X 10*6/uL MCV (80.0-97.0) FL MCH (27.0-32.0) pg RDW (11.5-14.5) % Immature Gran # (0.00-0.04) X 10*3/uL Neutrophils # (1.80-7.70) X 10*3/uL Monocytes # (0.20-1.00) X 10*3/uL Eosinophils # (0.04-0.35) X 10*3/uL APTT 50.2 H (22.0-30.0) sec Sodium 134 L (137-145) mmol/L BUN 36 H (9.0-27.0) mg/dL BUN/Creatinine Ratio (12.00-20.00) Ratio Glucose 177 H (70-110) mg/dL POC Glucose (mg/dL) 173 H (70-110) mg/dL Calcium (8.7-10.3) mg/dL ALT (10-49) U/L Total Protein (6.2-8.2) g/dL Assessment and Plan Assessment: Substernal chest pain/shortness of breath under investigation. Patient has a mild component of COPD exacerbation. He is also in atrial fibrillation with a controlled rate. Plan is for cardiac catheterization today July 11, 2024 COPD with mild exacerbation CHF with an EF of around 40 to 45% Chronic atrial fibrillation, previous JUAN cardioversion was not done due to a clot in the left atrial appendage. Acute kidney injury probably induced by intake of nonsteroidal anti-inflammatory medications, renal function continues to improve and the patient is nonoliguric at this point. Obesity with suspected PRAMOD Hypothyroidism Diabetes mellitus type 2 with a HbA1c of 7.3 History of smoking Plan: The patient was seen and evaluated Labs and medications reviewed Stable and on room air Continue DuoNeb inhalations Continue Symbicort Continue prednisone taper Remains on a heparin drip Plan is for cardiac catheterization today We will continue to follow I have personally seen and examined the patient, performed the documentation and the assessment and plan as written. Number of minutes spent on the visit: 10 Dictation was produced using [employer] dictation software. Please excuse any gramm atical, word or spelling errors.
[2024-07-11 16:09] LABS: Glucose,Whole Blood 209 mg/dL (70-110)
[2024-07-11] MEDS: SODIUM CHLORIDE 0.9% 1,000 ML in EMPTY BAG 1 BAG IV SCH (16:50)
[2024-07-11 20:04] LABS: Glucose,Whole Blood 296 mg/dL (70-110)
[2024-07-11] MEDS: APIXABAN 5 MG TAB PO SCH (20:42)
[2024-07-12 05:57] LABS: Glucose,Whole Blood 127 mg/dL (70-110)
--- NOTE | 2024-07-12 06:14 | P.PN ---
Subjective Progress Note Date: 07/11/24 This is a 63-year-old male who was recently admitted with COPD exacerbation along with acute renal failure and chest pain being closely monitored with cardiology, pulmonary, nephrology following. Patient is currently n.p.o. and scheduled to undergo cardiac catheterization today and will await official r eport. Patient continued on breathing treatments currently on room air and patient reports to feeling improved. Will await cardiology and pulmonary clearance with possible discharge planning in the next 24 hours. Review of systems: Constitutional: No reports of fatigue, fever, or chills Cardiovascular: No reports of chest pain or palpitations Respiratory: No reports of worsening shortness of breath reports continued occasional cough GI: No reports of nausea, no reports of vomiting, no diarrhea, reports of feeling hungry as he is currently n.p.o. for cardiac cath : No reports of dysuria or retention Neurovascular: No reports of generalized weakness All medications have been reviewed PHYSICAL EXAMINATION: GENERAL: The patient is alert and oriented x4, Well developed, well nourished. Obese, appears older than stated age HEENT: Pupils are round and equally reacting to light. EOMI. no scleral icterus. No conjunctival pallor. Normocephalic, atraumatic. No pharyngeal erythema. No thyromegaly. CARDIOVASCULAR: S1 and S2 muffled PULMONARY: diminished breath sounds bilaterally with some faint expiratory wheezing and coarse rhonchi noted. ABDOMEN: soft. Nontender on exam. obese. non-distended, normoactive bowel sounds. No palpable organomegaly. MUSCULOSKELETAL: No joint swelling or deformity. EXTREMITIES: No cyanosis, clubbing, or pedal edema. NEUROLOGICAL: Gross neurological examination did not reveal any focal deficits. SKIN: No rashes. Assessment: Chronic obstructive pulmonary disease, acute exacerbation Acute on chronic renal failure Chest pain, rule out unstable angina, scheduled to undergo cardiac catheterization today 07/11/2024 Previous JUAN showing atrial thrombus, maintained on Eliquis History of atrial fibrillation Hypertension Hyperlipidemia Obesity with a BMI 35.4 GI prophylaxis DVT prophylaxis Full code Plan: Recommend to continue with current medications and management with cardiology, nephrology, pulmonary following. Patient is maintained on gentle IV hydration and will follow-up on repeat labs to monitor kidney functions and electrolytes Patient scheduled undergo cardiac catheterization today and currently n.p.o. and will await report Continue current medication regimen and will adjust as needed Continue telemetry monitoring Will discuss further with consultations regarding possible discharge planning in the next 24 to 48 hours Due to multiple complex medical issues, overall prognosis is guarded The impression and plan of care has been dictated by Kasandra Patterson, nurse practitioner as directed. Dr. Darrel MD I have performed a history and examination and MDM of this patient, discussed the same with the dictator, and agree with the dictator's assessment and plan as written ,documented as a scribe. Based on total visit time, I have performed more than 50% of the visit. Any additional findings or plans will be noted. Objective - Vital Signs Vital signs: Vital Signs Temp 98.4 F 07/11/24 12:43 Pulse 65 07/11/24 12:43 Resp 16 07/11/24 12:43 BP 134/83 07/11/24 12:43 Pulse Ox 96 07/11/24 12:43 FiO2 Intake & Output 07/10/24 07/11/24 07/11/24 18:59 06:59 18:59 Intake Total 166.688 603.312 280.864 Output Total 1125 1650 Balance -958.312 -1046.688 280.864 Intake: IV 102 Intake, IV Titration 166.688 83.312 178.864 Amount Heparin Sod,Pork in 0.45% 166.688 83.312 178.864 NaCl 25,000 unit In 0.45 % NaCl 1 250ml.bag @ 9.19 UNITS/KG/HR 10.004 mls/ hr IV .Q24H [facility] Rx#: [id number] Oral 520 Output: Urine 1125 1650 Other: Voiding Method Urinal Toilet # Bowel Movements 1 - Labs CBC & Chem 7: 07/11/24 07:48 07/11/24 10:32 Labs: Abnormal Lab Results - Last 24 Hours (Table) 07/10/24 07/10/24 07/10/24 Range/Units 15:02 16:48 19:31 WBC (4.50-10.00) X 10*3/uL RBC (4.40-5.60) X 10*6/uL MCV (80.0-97.0) FL MCH (27.0-32.0) pg RDW (11.5-14.5) % Immature Gran # (0.00-0.04) X 10*3/uL Neutrophils # (1.80-7.70) X 10*3/uL Monocytes # (0.20-1.00) X 10*3/uL Eosinophils # (0.04-0.35) X 10*3/uL APTT 30.2 H (22.0-30.0) sec Sodium (137-145) mmol/L BUN (9.0-27.0) mg/dL BUN/Creatinine Ratio (12.00-20.00) Ratio Glucose (70-110) mg/dL POC Glucose (mg/dL) 288 H 271 H (70-110) mg/dL Calcium (8.7-10.3) mg/dL ALT (10-49) U/L Total Protein (6.2-8.2) g/dL 07/10/24 07/11/24 07/11/24 Range/Units 21:04 06:01 07:48 WBC 21.89 H (4.50-10.00) X 10*3/uL RBC 4.21 L (4.40-5.60) X 10*6/uL MCV 103.1 H (80.0-97.0) FL MCH 34.0 H (27.0-32.0) pg RDW 14.6 H (11.5-14.5) % Immature Gran # 0.24 H (0.00-0.04) X 10*3/uL Neutrophils # 18.48 H (1.80-7.70) X 10*3/uL Monocytes # 1.52 H (0.20-1.00) X 10*3/uL Eosinophils # 0 L (0.04-0.35) X 10*3/uL APTT 57.8 H (22.0-30.0) sec Sodium (137-145) mmol/L BUN (9.0-27.0) mg/dL BUN/Creatinine Ratio (12.00-20.00) Ratio Glucose (70-110) mg/dL POC Glucose (mg/dL) 177 H (70-110) mg/dL Calcium (8.7-10.3) mg/dL ALT (10-49) U/L Total Protein (6.2-8.2) g/dL 07/11/24 07/11/24 07/11/24 Range/Units 07:48 07:48 10:32 WBC (4.50-10.00) X 10*3/uL RBC (4.40-5.60) X 10*6/uL MCV (80.0-97.0) FL MCH (27.0-32.0) pg RDW (11.5-14.5) % Immature Gran # (0.00-0.04) X 10*3/uL Neutrophils # (1.80-7.70) X 10*3/uL Monocytes # (0.20-1.00) X 10*3/uL Eosinophils # (0.04-0.35) X 10*3/uL APTT 50.2 H (22.0-30.0) sec Sodium 134 L (137-145) mmol/L BUN 33.7 H 36 H (9.0-27.0) mg/dL BUN/Creatinine Ratio 25.92 H (12.00-20.00) Ratio Glucose 182 H 177 H (70-110) mg/dL POC Glucose (mg/dL) (70-110) mg/dL Calcium 8.6 L (8.7-10.3) mg/dL ALT 67 H (10-49) U/L Total Protein 5.8 L (6.2-8.2) g/dL 07/11/24 Range/Units 11:38 WBC (4.50-10.00) X 10*3/uL RBC (4.40-5.60) X 10*6/uL MCV (80.0-97.0) FL MCH (27.0-32.0) pg RDW (11.5-14.5) % Immature Gran # (0.00-0.04) X 10*3/uL Neutrophils # (1.80-7.70) X 10*3/uL Monocytes # (0.20-1.00) X 10*3/uL Eosinophils # (0.04-0.35) X 10*3/uL APTT (22.0-30.0) sec Sodium (137-145) mmol/L BUN (9.0-27.0) mg/dL BUN/Creatinine Ratio (12.00-20.00) Ratio Glucose (70-110) mg/dL POC Glucose (mg/dL) 173 H (70-110) mg/dL Calcium (8.7-10.3) mg/dL ALT (10-49) U/L Total Protein (6.2-8.2) g/dL
[2024-07-12 06:54] LABS: African American GFR (CKD) 76 (>60 ml/min/1.73 sqM); Anion Gap 4 mmol/L; Blood Urea Nitrogen 26 mg/dL (9-20); Calcium 9.3 mg/dL (8.4-10.2); Carbon Dioxide 27 mmol/L (22-30); Chloride 105 mmol/L (98-107); Glucose 115 mg/dL (74-99); Magnesium 2.1 mg/dL (1.6-2.3); Non-African American GFR(CKD) 66 (>60 ml/min/1.73 sqM); Potassium 4.7 mmol/L (3.5-5.1); Sodium 136 mmol/L (137-145)
[2024-07-12] MEDS ORDERED: HEPARIN SODIUM,PORCINE (1 ML) 2,500 UNIT in SODIUM CHLORIDE 0.9% 250 ML IRRIGATION PRN (07:00)
[2024-07-12] MEDS ORDERED: HEPARIN SODIUM,PORCINE 10,000 UNIT in SODIUM CHLORIDE 0.9% 1,000 ML IRRIGATION PRN (07:00)
--- NOTE | 2024-07-12 09:51 | P.PN ---
Subjective Patient is seen in follow-up for acute kidney injury. Renal function improving. On IV fluids. Admits to good urine output. No active complaints. Vital signs are stable. General: No acute distress. HEENT: Head exam is unremarkable. LUNGS: No audible rhonchi or wheezes. HEART: Rate and Rhythm are regular. ABDOMEN: Nontender. EXTREMITITES: No edema. Objective - Vital Signs Vital signs: Vital Signs Temp 98.6 F 07/12/24 07:38 Pulse 84 07/12/24 07:56 Resp 16 07/12/24 07:38 BP 127/81 07/12/24 07:38 Pulse Ox 95 07/12/24 07:47 FiO2 Intake & Output 07/11/24 07/12/24 07/12/24 18:59 06:59 18:59 Intake Total 1332.864 Output Total 460 Balance 872.864 Intake: IV 302 Intake, IV Titration 328.864 Amount Heparin Sod,Pork in 0.45% 178.864 NaCl 25,000 unit In 0.45 % NaCl 1 250ml.bag @ 9.19 UNITS/KG/HR 10.004 mls/ hr IV .Q24H [facility] Rx#: [id number] Sodium Chloride 0.9% 1, 150 000 ml @ 75 mls/hr IV . [id number] [facility] Rx#:[id number] Oral 702 Output: Urine 460 Other: Voiding Method Toilet Toilet # Voids 1 - Labs CBC & Chem 7: 07/11/24 07:48 07/12/24 06:00 Labs: Abnormal Lab Results - Last 24 Hours (Table) 07/11/24 07/11/24 07/11/24 Range/Units 07:48 07:48 10:32 WBC 21.89 H (4.50-10.00) X 10*3/uL RBC 4.21 L (4.40-5.60) X 10*6/uL MCV 103.1 H (80.0-97.0) FL MCH 34.0 H (27.0-32.0) pg RDW 14.6 H (11.5-14.5) % Immature Gran # 0.24 H (0.00-0.04) X 10*3/uL Neutrophils # 18.48 H (1.80-7.70) X 10*3/uL Monocytes # 1.52 H (0.20-1.00) X 10*3/uL Eosinophils # 0 L (0.04-0.35) X 10*3/uL Sodium 134 L (137-145) mmol/L BUN 33.7 H 36 H (9.0-27.0) mg/dL BUN/Creatinine Ratio 25.92 H (12.00-20.00) Ratio Glucose 182 H 177 H (70-110) mg/dL POC Glucose (mg/dL) (70-110) mg/dL Calcium 8.6 L (8.7-10.3) mg/dL ALT 67 H (10-49) U/L Total Protein 5.8 L (6.2-8.2) g/dL 07/11/24 07/11/24 07/11/24 Range/Units 11:38 16:05 20:03 WBC (4.50-10.00) X 10*3/uL RBC (4.40-5.60) X 10*6/uL MCV (80.0-97.0) FL MCH (27.0-32.0) pg RDW (11.5-14.5) % Immature Gran # (0.00-0.04) X 10*3/uL Neutrophils # (1.80-7.70) X 10*3/uL Monocytes # (0.20-1.00) X 10*3/uL Eosinophils # (0.04-0.35) X 10*3/uL Sodium (137-145) mmol/L BUN (9.0-27.0) mg/dL BUN/Creatinine Ratio (12.00-20.00) Ratio Glucose (70-110) mg/dL POC Glucose (mg/dL) 173 H 209 H 296 H (70-110) mg/dL Calcium (8.7-10.3) mg/dL ALT (10-49) U/L Total Protein (6.2-8.2) g/dL 07/12/24 07/12/24 Range/Units 05:53 06:00 WBC (4.50-10.00) X 10*3/uL RBC (4.40-5.60) X 10*6/uL MCV (80.0-97.0) FL MCH (27.0-32.0) pg RDW (11.5-14.5) % Immature Gran # (0.00-0.04) X 10*3/uL Neutrophils # (1.80-7.70) X 10*3/uL Monocytes # (0.20-1.00) X 10*3/uL Eosinophils # (0.04-0.35) X 10*3/uL Sodium 136 L (137-145) mmol/L BUN 26 H (9.0-27.0) mg/dL BUN/Creatinine Ratio (12.00-20.00) Ratio Glucose 115 H (70-110) mg/dL POC Glucose (mg/dL) 127 H (70-110) mg/dL Calcium (8.7-10.3) mg/dL ALT (10-49) U/L Total Protein (6.2-8.2) g/dL Assessment and Plan Plan: Assessment: 1. Acute kidney injury secondary to ATN secondary to hypovolemia, NSAIDs and further worsened with the use of diuretics, Cozaar. Creatinine 2.8 on admission (at another facility) -1.19 today. Did receive IV contrast for cardiac catheterization July 11, 2024. Baseline creatinine near 1 from June 2024. UA benign. No hydronephrosis noted on kidney ultrasound. 2. Atrial thrombus maintained on anticoagulation. 3. History of A-fib. 4. Chronic systolic CHF ejection fraction of 40% with mild to moderate mitral regurgitation. Status post cardiac catheterization July 11, 2024 which showed patent coronary arteries. 5. Metabolic acidosis secondary to acute kidney injury. Improved. Plan: Now off IV fluids. Encouraged oral intake. Maintain low-sodium diet. Add SGLT2 inhibitor. Avoid nephrotoxins. Continue to monitor renal function and urine output. Monitor for contrast associated acute kidney injury. Follow-up outpatient 1 week postdischarge.
[2024-07-12 11:49] LABS: Glucose,Whole Blood 146 mg/dL (70-110)
[2024-07-12] MEDS: DAPAGLIFLOZIN PROPANEDIOL 5 MG TABLET PO SCH (12:00)
[2024-07-12 12:07] VITALS: BP 122/76; RESP 18; TEMP 97.4
[2024-07-12 15:18] VITALS: PULSE 72
--- NOTE | 2024-07-12 15:19 | P.PN ---
Subjective Progress Note Date: 07/12/24 Principal diagnosis: Acute COPD exacerbation and substernal chest. Pain This is a 63-year-old male patient presented emerged part with worsening shortness of breath. The patient has history of COPD and has been hospitalized in the past for acute COPD exacerbation, treated and discharged. He denies smoking. He is also suspected of obstructive sleep apnea based on his anatomic features and weight. Nevertheless, the final diagnosis not been established and sleep study has not been done. He also has CHF with an EF of around 40 to 45% and has atrial fibrillation. During his last admission, the patient was A-fib RVR. JUAN cardioversion was attempted during his last admission. However, he was noted to have a clot in the left atrial appendage and the procedure was not performed. As such, the patient was treated medically. The patient presented to [facility] with some substernal chest pain and increased shortness of breath. He was noted to be in atrial fibrillation. At this point in time, his rate is controlled and his EKG is not showing any acute abnormalities. He has been maintained on a combination of metoprolol 100 mg p.o. twice a day and amiodarone 200 mg p.o. daily and Farxiga and torsemide on outpatient basis. Chest x-ray from this current admission shows no acute abnormalities. On a separate note, the blood work showed an acute kidney injury. The patient has been overutilizing nonsteroidal anti-inflammatory medications and was taking Motrin 800 mg at least 3 times a day. Nephrology's been consulted. He was given IV fluids. Creatinine has dropped from 2.3 down to 1.7 and is producing urine output. Electrolytes are stable. The white cell count today is at 17.6 with a hemoglobin 17.2 and a platelet count of 375. He is currently on DuoNeb [id number]. He is on IV heparin. He is on oral amiodarone and metoprolol.. He was also started on IV Solu-Medrol. Nevertheless, his COPD is not quite active and the patient will be started on a prednisone burst taper. He is on IV fluids normal saline at rate of 80 cc an hour. The patient is seen today July 11, 2024 in follow-up on the regular medical floor. He is awake and alert in no acute distress. Maintaining O2 saturations in the mid 90s on room air. He has been afebrile. Hemodynamically stable. White count 21.8. Hemoglobin 14.3. Platelets 356. Sodium 134. Potassium 4.9. Bicarb 26. BUN 36. Creatinine 1.17. Glucose 177. He remains on DuoNeb inh alations, Symbicort, prednisone taper. He remains on a heparin drip. Plan is for cardiac catheterization today. Patient was seen today on 07/12/2024, patient underwent cardiac catheterization and he was found to have minimal coronary artery disease but he did have left ventricular end-diastolic pressure in the range of 25 consistent with mild congestive heart failure. His echocardiogram did show evidence of LV dysfunction with ejection fraction of 40 to 45%. Pulmonary quiroga the patient is doing well, hardly any cough no wheezing, very minimal shortness of breath. Labs today showed relatively normal electrolytes, renal functioning is improving creatinine is 1.19, compared to 2.30 on admission, chest x-ray on admission showed no acute pulmonary process. Objective - Vital Signs Vital signs: Vital Signs Temp 97.4 F L 07/12/24 11:40 Pulse 80 07/12/24 11:40 Resp 18 07/12/24 11:40 BP 122/76 07/12/24 11:40 Pulse Ox 95 07/12/24 11:40 FiO2 Intake & Output 07/11/24 07/12/24 07/12/24 18:59 06:59 18:59 Intake Total 1332.864 Output Total 460 Balance 872.864 Intake: IV 302 Intake, IV Titration 328.864 Amount Heparin Sod,Pork in 0.45% 178.864 NaCl 25,000 unit In 0.45 % NaCl 1 250ml.bag @ 9.19 UNITS/KG/HR 10.004 mls/ hr IV .Q24H [facility] Rx#: [id number] Sodium Chloride 0.9% 1, 150 000 ml @ 75 mls/hr IV . [id number] [facility] Rx#:[id number] Oral 702 Output: Urine 460 Other: Voiding Method Toilet Toilet Toilet # Voids 1 - Exam GENERAL EXAM: Alert, active, 63-year-old male patient, on room air, O2 sat is 95% HEAD: Normocephalic. EYES: Normal reaction of pupils, equal size. NOSE: Clear with pink turbinates. THROAT: No erythema or exudates. NECK: No masses, no JVD. CHEST: No chest wall deformity. LUNGS: Equal air entry with no crackles, wheeze, rhonchi or dullness. CVS: S1 and S2 normal with no audible murmur, irregular rhythm. ABDOMEN: No hepatosplenomegaly, normal bowel sounds, no guarding or rigidity. SKIN: No rashes CENTRAL NERVOUS SYSTEM: Alert oriented x 3 no gross focal deficit EXTREMITIES: T no clubbing edema or cyanosis - Labs CBC & Chem 7: 07/11/24 07:48 07/12/24 06:00 Labs: Abnormal Lab Results - Last 24 Hours (Table) 07/11/24 07/11/24 07/12/24 Range/Units 16:05 20:03 05:53 Sodium (137-145) mmol/L BUN (9-20) mg/dL Glucose (74-99) mg/dL POC Glucose (mg/dL) 209 H 296 H 127 H (70-110) mg/dL 07/12/24 07/12/24 Range/Units 06:00 11:47 Sodium 136 L (137-145) mmol/L BUN 26 H (9-20) mg/dL Glucose 115 H (74-99) mg/dL POC Glucose (mg/dL) 146 H (70-110) mg/dL Assessment and Plan Assessment: Impression: Atypical chest pain COPD with mild exacerbation CHF with an EF of around 40 to 45% Chronic atrial fibrillation, previous JUAN cardioversion was not done due to a clot in the left atrial appendage. Acute kidney injury probably induced by intake of nonsteroidal anti-inflammatory medications, improving since admission Obesity with suspected PRAMOD Hypothyroidism Diabetes mellitus type 2 with a HbA1c of 7.3 History of smoking Recommendation: Continue present supportive care measures Continue DuoNeb and Symbicort for mild COPD Continue prednisone taper on outpatient basis Reviewed the report on his cardiac catheterization Will clear the patient for discharge once cleared by cardiology. Will continue to follow. Time with Patient: Less than 30
--- NOTE | 2024-07-13 07:03 | P.PN ---
Subjective Progress Note Date: 07/12/24 HISTORY OF PRESENT ILLNESS: 63-year-old with past medical history of persistent atrial fibrillation, car diomyopathy with a EF of 40 to 45%, dyspnea on exertion, ex-tobacco smoker, obesity, suspected obstructive sleep apnea and COPD. He was hospitalized in May and then in June with atrial fibrillation with RVR with symptoms of palpitation and shortness of breath. Patient was adamant that he needs a heart catheterization because of his symptoms however both that time we noticed that he was in mild congestive heart failure exacerbation because of his cardiomyopathy and atrial fibrillation with RVR. In June 2024 JUAN cardioversion was attempted however on JUAN it was noticed that patient has a left atrial appendage thrombus therefore cardioversion was not performed. He was discharged home on optimize his guideline recommended medical therapy and was instructed to follow-up on outpatient basis for a stress test however patient never followed up in the office. This time patient presented to [facility] with similar symptoms of substernal chest pressure and shortness of breath. On admission basic labs showed evidence of ANNMARIE. On last discharge he was discharged on GDMT with torsemide 10, Farxiga 10, losartan 12.5 mg daily, metoprolol 100 mg twice daily, amiodarone 200 mg Admission EKG shows atrial fibrillation with controlled heart rate 98 bpm, moderate interventricular conduction delay Admission labs showed hyponatremia sodium 125, potassium 5.1, BUN 47, creatinine 2.3 07/10/2024 Patient seen and examined at bedside this a.m. Patient is still adamant on getting a heart catheterization done before the discharge Creatinine 1.7 today 07/11/2024 Patient examined this morning at the bedside. Patient currently denies chest pain or pressure. He denies shortness of breath. Vital signs are stable. Creatinine improved today to 1.3. He remains on IV heparin. 07/12 Yesterday, patient underwent cardiac catheterization with Dr. Grady which revealed patent coronary arteries with mild luminary irregularities. Plan was for aggressive risk factor modification. Patient has no complaints of chest pain or shortness of breath. He did have an episode last evening when he was eating which resolved on its own. He does complain of cough with yellow sputum production. Blood pressure 122/76, heart rate 80, pulse ox 95% on room air. Repeat blood work reveals sodium 136, potassium 4.7, BUN 26 and creatinine 1.19. PHYSICAL EXAM: VITAL SIGNS: Reviewed. GENERAL: Well-developed in no acute distress. NECK: Supple. No JVD or thyromegaly LUNGS: Respirations even and unlabored. Lungs essentially clear to auscultation bilaterally. HEART: Regular rate and rhythm. S1 and S2 heard. EXTREMITIES: Normal range of motion. No clubbing or cyanosis. Peripheral pulses intact. No lower extremity edema ASSESSMENT: # ANNMARIE # Dyspnea on exertion # Substernal chest pressure # Persistent atrial fibrillation # Cardiomyopathy with a EF of 40 to 45% # Obesity # Type 2 diabetes, A1c 7.3, # Low TSH with normal T4, TSH 0.19 # Medication and medical recommendation noncompliance # Obesity # Suspected PRAMOD # Hearing impairment PLAN: Continue current cardiac medications including amiodarone, aspirin, Lipitor, metoprolol Patient has been resumed on Eliquis Patient is cleared for discharge from cardiology and follow-up with Dr. Grady in 1 week. Nurse practitioner note has been reviewed by physician. Signing provider agrees with the documented findings, assessment, and plan of care documented by SLIP IN[employer]OR AND APPLICATOR as a scribe. Objective - Vital Signs Vital signs: Vital Signs Temp 97.4 F L 07/12/24 11:40 Pulse 72 07/12/24 14:00 Resp 18 07/12/24 11:40 BP 122/76 07/12/24 11:40 Pulse Ox 95 07/12/24 11:40 FiO2 Intake & Output 07/12/24 07/13/24 07/13/24 18:59 06:59 18:59 Other: Voiding Method Toilet - Labs CBC & Chem 7: 07/11/24 07:48 07/12/24 06:00 Labs: Abnormal Lab Results - Last 24 Hours (Table) 07/12/24 Range/Units 11:47 POC Glucose (mg/dL) 146 H (70-110) mg/dL
--- NOTE | 2024-07-13 10:26 | P.DS ---
Providers Date of admission: 07/09/24 08:17 Expected date of discharge: 07/12/24 Attending physician: Carlos A Teague Consults: 07/09/24 08:24 Consult Physician Routine Consulting Provider: Juan A Abdi Consult Reason/Comments: ANNMARIE Do you want consulting provider notified?: Yes 07/09/24 14:33 Consult Physician Routine Consulting Provider: Teetee Perez Consult Reason/Comments: copd Do you want consulting provider notified?: Yes Consult Physician Routine Consulting Provider: Vega Grady Consult Reason/Comments: atrial thrombus Do you want consulting provider notified?: Yes Primary care physician: Christiano Tinsley MD Hospital Course: Final diagnosis Chronic obstructive pulmonary disease, acute exacerbation Acute on chronic renal failure, improving Chest pain, rule out unstable angina, status post cardiac catheterization 07/11/2024, no surgical intervention at this time Previous JUAN showing atrial thrombus, maintained on Eliquis History of atrial fibrillation Hypertension Hyperlipidemia Obesity with a BMI 35.4 GI prophylaxis DVT prophylaxis Full code Discharge disposition Patient is being discharged in a stable condition with guarded prognosis to home. Patient will follow-up with Dr. Tinsley in the outpatient setting upon discharge. Patient is to continue with current medications and outpatient follow-up with cardiology as well as pulmonary as scheduled. Total time taken is greater than 35 minutes. Hospital course This is a 63-year-old male who was recently admitted with COPD exacerbation as well as chest pain, possibly unstable angina. Patient was evaluated by pulmonary maintained on IV steroids along with DuoNeb treatments and also evaluated by cardiology recommending cardiac catheterization. Cardiac catheterization was done with no surgical intervention at this time recommending maximizing medical management and close outpatient follow-up. Patient reports to feeling improved and would like to go home. Patient has been cleared by consultations. Please refer to other consultation notes for further HPI. Currently no reports of chest pain, shortness of breath, or palpitations. Patient is afebrile. No reports of nausea or vomiting and patient is tolerating diet. Patient will be discharged home today. Guarded prognosis and high risk for readmissions given patient's noncompliance and significant comorbidities Physical exam: Gen: This is a 63-year-old male who is awake, alert and oriented x 3, well- developed, appears older than stated age, obese HEENT: Head is atraumatic, normocephalic. Pupils equal, round. Sclerae is anicteric. NECK: Supple. No JVD. No lymphadenopathy. No thyromegaly. LUNGS: Diminished breath sounds bilaterally otherwise clear to auscultation. A few faint expiratory wheezes noted and coarse rhonchi. No intercostal retractions. HEART: S1, S2 are muffled ABDOMEN: Soft. Obese. Bowel sounds are present. No masses. No tenderness. EXTREMITIES: No pedal edema. No calf tenderness. NEUROLOGICAL: Patient is awake, alert and oriented x3. Cranial nerves 2 through 12 are grossly intact. Please refer to medication reconciliation sheet for a list of medications. The impression and plan of care has been dictated by Kasandra Patterson, Nurse Practitioner as directed. Dr. Darrel MD I have performed a history and examination and MDM of this patient, discussed the same with the dictator, and agree with the dictator's assessment and plan as written ,documented as a scribe. Based on total visit time, I have performed more than 50% of the visit. Patient Condition at Discharge: Fair Plan - Discharge Summary Discharge Rx Participant: No New Discharge Prescriptions: New Dapagliflozin Propanediol [Farxiga] 5 mg PO DAILY #30 tab Nitroglycerin Sl Tabs [Nitrostat] 0.4 mg SUBLINGUAL Q5M PRN #20 tab PRN Reason: Chest Pain Acetaminophen Tab [Tylenol] 650 mg PO Q6HR PRN tab PRN Reason: Mild Pain Or Fever > 100.5 predniSONE See Taper PO DIRECTED #30 tab Continue Albuterol Sulfate [Ventolin HFA] 2 puff INHALATION RT-Q4H PRN PRN Reason: Shortness Of Breath guaiFENesin [Mucinex] 1,200 mg PO BID PRN PRN Reason: Congestion Fluticasone Nasal [place] [Flonase Nasal [place]] 2 spr EA NOSTRIL DAILY Fluticasone Propion/Salmeterol [Advair 500-50 Diskus] 1 puff INHALATION RT- BID Ipratropium-Albuterol Nebulize [Duoneb 0.5 mg-3 mg/3 ml Soln] 3 ml INHALATION RT-QID #100 each Ipratropium-Albuterol Nebulize [Duoneb 0.5 mg-3 mg/3 ml Soln] 3 ml INHALATION RT-Q4H PRN each PRN Reason: shortness of breath Apixaban [Eliquis] 5 mg PO BID #60 tab Amiodarone [Cordarone] 200 mg PO DAILY Budesonide [Pulmicort] 1 mg INHALATION RT-BID Fluticasone/Umeclidin/Vilanter [Trelegy Ellipta 200-62.5-25] 1 puff INHALATION RT-DAILY Albuterol Nebulized [Ventolin Nebulized] 2.5 mg INHALATION RT-QID Tiotropium [place] [Spiriva Handihaler] 1 puff INHALATION RT-DAILY Atorvastatin [Lipitor] 40 mg PO HS #30 tab Metoprolol Tartrate [Lopressor] 100 mg PO BID #120 tab Discontinued Losartan [Cozaar] 12.5 mg PO DAILY #30 tab Torsemide [Demadex] 10 mg PO DAILY #30 tab Spironolactone [Aldactone] 25 mg PO DAILY #30 tab Dapagliflozin Propanediol [Farxiga] 10 mg PO DAILY #30 tab Discharge Medication List Albuterol Nebulized [Ventolin Nebulized] 2.5 mg INHALATION RT-QID 05/21/24 [History] Albuterol Sulfate [Ventolin HFA] 2 puff INHALATION RT-Q4H PRN 05/21/24 [History] Fluticasone Nasal [place] [Flonase Nasal [place]] 2 spr EA NOSTRIL DAILY 05/21/24 [History] Fluticasone Propion/Salmeterol [Advair 500-50 Diskus] 1 puff INHALATION RT-BID 05/21/24 [History] Fluticasone/Umeclidin/Vilanter [Trelegy Ellipta 200-62.5-25] 1 puff INHALATION RT-DAILY 05/21/24 [History] guaiFENesin [Mucinex] 1,200 mg PO BID PRN 05/21/24 [History] Apixaban [Eliquis] 5 mg PO BID #60 tab 05/24/24 [Rx] Ipratropium-Albuterol Nebulize [Duoneb 0.5 mg-3 mg/3 ml Soln] 3 ml INHALATION RT-Q4H PRN each 05/24/24 [Rx] Ipratropium-Albuterol Nebulize [Duoneb 0.5 mg-3 mg/3 ml Soln] 3 ml INHALATION RT-QID #100 each 05/24/24 [Rx] Tiotropium [place] [Spiriva Handihaler] 1 puff INHALATION RT-DAILY 06/11/24 [History] Atorvastatin [Lipitor] 40 mg PO HS #30 tab 06/14/24 [Rx] Metoprolol Tartrate [Lopressor] 100 mg PO BID #120 tab 06/14/24 [Rx] Amiodarone [Cordarone] 200 mg PO DAILY 07/09/24 [History] Budesonide [Pulmicort] 1 mg INHALATION RT-BID 07/09/24 [History] Acetaminophen Tab [Tylenol] 650 mg PO Q6HR PRN tab 07/12/24 [Rx] Dapagliflozin Propanediol [Farxiga] 5 mg PO DAILY #30 tab 07/12/24 [Rx] Nitroglycerin Sl Tabs [Nitrostat] 0.4 mg SUBLINGUAL Q5M PRN #20 tab 07/12/24 [Rx] predniSONE See Taper PO DIRECTED #30 tab 07/12/24 [Rx] Follow up Appointment(s)/Referral(s): Hector Blunt MD [STAFF PHYSICIAN] - 1 Week (Pulmonary) Vega Grady MD [Medical Doctor] - 1 Week (Cardiology) Christiano Tinsley MD [Primary Care Provider] - 1-2 days (Primary Care) Juan A Abdi DO [STAFF PHYSICIAN] - 1 Week (Nephrology) Patient Instructions/Handouts: *Surgery [facility] - After Heart Catheterization - [facility] Instructions, A-fib (Atrial Fibrillation) (DC), Acute Kidney Injury (DC), COPD (Chronic Obstructive Pulmonary Disease) (DC) Activity/Diet/Wound Care/Special Instructions: Activity limited until follow-up Follow-up with primary care provider on discharge Follow-up with pulmonary outpatient Follow-up with cardiology outpatient in 1 week Continue taking medications as prescribed Continue with inhalers and prednisone taper until finished Discharge Disposition: HOME SELF-CARE
[2024-07-14] MEDS ORDERED: predniSONE 10 MG TAB PO SCH (09:00)
[2024-07-18] MEDS ORDERED: predniSONE 20 MG TAB PO SCH (09:00)
[2024-07-22] MEDS ORDERED: predniSONE 10 MG TAB PO SCH (09:00)
== END 2024-07-12 16:17 | disposition home or self-care (01) | DRG 286 ==
LOC: EC 07:10 → SUPCPDRO 07:10 → 4SSUR 08:17 → 3SCARD 07-11 12:49
PROVIDERS: ADMIT Internal Medicine; ATTEND Internal Medicine
PROC: B2111ZZ Fluoroscopy of Multiple Coronary Arteries using Low Osmolar Contrast (ICD-10-PCS; 2024-07-11)
PROC: 4A023N7 Measurement of Cardiac Sampling and Pressure, Left Heart, Percutaneous Approach (ICD-10-PCS; principal; 2024-07-11 13:30)
DX: I20.0 Unstable angina (principal); N17.0 Acute kidney failure with tubular necrosis; E87.20 Acidosis, unspecified; E87.1 Hypo-osmolality and hyponatremia; I51.3 Intracardiac thrombosis, not elsewhere classified; I48.19 Other persistent atrial fibrillation; I42.9 Cardiomyopathy, unspecified; E86.1 Hypovolemia; J44.1 Chronic obstructive pulmonary disease with (acute) exacerbation; I13.0 Hypertensive heart and chronic kidney disease with heart failure and stage 1 through stage 4 chronic kidney disease, or unspecified chronic kidney disease; E11.22 Type 2 diabetes mellitus with diabetic chronic kidney disease; Z68.35 Body mass index [BMI] 35.0-35.9, adult; E03.9 Hypothyroidism, unspecified; N18.9 Chronic kidney disease, unspecified; I34.0 Nonrheumatic mitral (valve) insufficiency; I50.22 Chronic systolic (congestive) heart failure; E78.5 Hyperlipidemia, unspecified; E66.9 Obesity, unspecified; G47.33 Obstructive sleep apnea (adult) (pediatric); H91.90 Unspecified hearing loss, unspecified ear; Z79.899 Other long term (current) drug therapy; Z79.01 Long term (current) use of anticoagulants; Z87.891 Personal history of nicotine dependence; Z91.199 Patient's noncompliance with other medical treatment and regimen due to unspecified reason; Z79.52 Long term (current) use of systemic steroids; Z79.84 Long term (current) use of oral hypoglycemic drugs
CPT/HCPCS: 36415; 71046; 76770; 80048; 80053; 81003; 83036; 83735; 83880; 85025; 85610; 85730; 93005; 93458; 94640; 94760; 96360; 96361; 99285